=== PATIENT | male | born 1950 | race Caucasian/White ===

== ENCOUNTER 2020-09-24 13:44 | Outpatient (REF) | payer MEDICARE, OTHER, SELFPAY ==
[2020-09-24 16:42] LABS: Blood Urea Nitrogen 30 mg/dL (9-16); Estimated Glomerular Filt Rate 50
== END 2020-09-24 13:45 | disposition home or self-care (01) ==
LOC: HO.HMGCLDS 13:44
PROVIDERS: PCP Internal Medicine; Visit Provider Internal Medicine
DX: R79.9 Abnormal finding of blood chemistry, unspecified (principal)
CPT/HCPCS: 82565; 84520

== ENCOUNTER 2020-10-23 13:32 | Outpatient (REF) | payer MEDICARE, OTHER, SELFPAY ==
[2020-10-23 17:05] LABS: Blood Urea Nitrogen 23 mg/dL (9-16)
== END 2020-10-23 13:33 | disposition home or self-care (01) ==
LOC: HO.HMGCLDS 13:32
PROVIDERS: PCP Internal Medicine; Visit Provider Internal Medicine
DX: R79.89 Other specified abnormal findings of blood chemistry (principal)
CPT/HCPCS: 36415; 84520

== ENCOUNTER 2021-03-19 10:50 | Outpatient (REF) | payer MEDICARE, OTHER, SELFPAY ==
[2021-03-19 11:33] LABS: Estimated Average Glucose 103 mg/dL; Hemoglobin A1c % 5.2 %
[2021-03-19 12:00] LABS: Alanine Aminotransferase 20 U/L (0-40); Albumin Level 4.6 g/dL (3.5-5.0); Alkaline Phosphatase 52 U/L (39-117); Aspartate Amino Transferase 25 U/L (5-37); Bilirubin Direct 0.5 mg/dL (0.0-0.5); Bilirubin Total 1.7 mg/dL (0.0-1.0); Cholesterol 130 mg/dL; Glucose Fasting 104 mg/dL (60-99); HDL Cholesterol 30 mg/dL; LDL Cholesterol Calculated 55 mg/dl; Total Protein 7.2 g/dL (6.5-8.0); Triglycerides 225 mg/dL
[2021-03-19 13:03] LABS: Reflex LDLD? No
== END 2021-03-19 10:51 | disposition home or self-care (01) ==
LOC: HO.LNP 10:50
PROVIDERS: Visit Provider Internal Medicine
DX: R73.01 Impaired fasting glucose (principal); E78.00 Pure hypercholesterolemia, unspecified
CPT/HCPCS: 80061; 80076; 82947; 83036

== ENCOUNTER 2021-09-09 09:49 | Outpatient (REF) | payer MEDICARE, OTHER, SELFPAY | END 2021-09-09 09:50 | disposition home or self-care (01) | LOC: HO.HMGCLDS 09:49 | PROVIDERS: PCP Internal Medicine; Visit Provider Internal Medicine | DX: Z20.822 Contact with and (suspected) exposure to COVID-19 (principal) | CPT/HCPCS: C9803; U0003; U0005 ==

== ENCOUNTER 2021-09-17 10:29 | Outpatient (REF) | payer MEDICARE, OTHER, SELFPAY ==
[2021-09-17 10:34] LABS: MANUAL DIFF FLAG NO
[2021-09-17 10:53] LABS: Basophils Percent Auto 0.7 % (0-2); Eosinophils Absolute Auto 0.1 X10*3/uL (0.0-0.4); Eosinophils Percent Auto 2.4 % (0-4); Hematocrit 41.5 % (42.0-52.0); Hemoglobin 14.4 g/dl (14.0-18.0); Imm Gran Abs Auto 0.01 X10*3/uL (0.00-0.03); Imm Gran Pct Auto 0.2 % (0.0-0.4); Lymphocytes Absolute Auto 1.2 X10*3/uL (1.2-4.9); Lymphocytes Percent Auto 26.1 % (20-40); Mean Corpuscular HGB Conc 34.7 g/dl (31.0-36.0); Mean Corpuscular Hemoglobin 33.5 pg (27.0-33.0); Mean Corpuscular Volume 96.5 fL (80.0-98.0); Mean Platelet Volume 9.1 fL (9.4-12.4); Monocytes Absolute Auto 0.4 X10*3/uL (0.1-1.2); Monocytes Percent Auto 9.4 % (2-11); Neutrophils Absolute Auto 2.8 x10*3/uL (2.0-8.3); Neutrophils Percent Auto 61.2 % (45-73); Platelet Count 186 X10*3/uL (160-400); Red Cell Distribution Width 11.9 % (11.0-16.0); White Blood Count 4.6 X10*3/uL (4.8-10.8)
[2021-09-17 10:54] LABS: Appearance Urine CLEAR; Color Urine YELLOW; Glucose Urine UA NEG (NEG); Leukocyte Esterase Urine NEG (NEG); Nitrite Urine NEG (NEG); PH 5.5 (5.0-8.0); Specific Gravity - Urine >= 1.030 (1.005-1.025); Urine Blood NEG (NEG); Urine Ketones NEG (NEG); Urine Protein TRACE MG/DL (NEG-TRACE)
[2021-09-17 11:07] LABS: Estimated Average Glucose 103 mg/dL; Hemoglobin A1c % 5.2 %
[2021-09-17 11:15] LABS: Alanine Aminotransferase 26 U/L (0-40); Albumin Level 4.4 g/dL (3.5-5.0); Alkaline Phosphatase 55 U/L (39-117); Anion Gap 11 (12-20); Aspartate Amino Transferase 24 U/L (5-37); Bilirubin Total 1.6 mg/dL (0.0-1.0); Blood Urea Nitrogen 25 mg/dL (9-16); Calcium 9.6 mg/dL (8.4-10.2); Carbon Dioxide 28 mmol/L (22-29); Chloride 104 mmol/L (96-108); Cholesterol 118 mg/dL; Estimated Glomerular Filt Rate 52; Glucose Fasting 99 mg/dL (60-99); HDL Cholesterol 32 mg/dL; LDL Cholesterol Calculated 64 mg/dl; Potassium 3.9 mmol/L (3.3-5.1); Sodium 139 mmol/L (135-145); Total Protein 7.1 g/dL (6.5-8.0); Triglycerides 111 mg/dL
[2021-09-17 11:40] LABS: PSA,Total (Free>4and<10) < 0.05 ng/mL (0.00-4.00)
[2021-09-17 11:50] LABS: Reflex LDLD? No
== END 2021-09-17 10:30 | disposition home or self-care (01) ==
LOC: HO.LNP 10:29
PROVIDERS: Visit Provider Internal Medicine
DX: Z12.5 Encounter for screening for malignant neoplasm of prostate (principal); I10 Essential (primary) hypertension; E78.00 Pure hypercholesterolemia, unspecified; E78.6 Lipoprotein deficiency; R73.01 Impaired fasting glucose; D64.89 Other specified anemias; C61 Malignant neoplasm of prostate; R79.9 Abnormal finding of blood chemistry, unspecified
CPT/HCPCS: 80053; 80061; 81003; 83036; 84153; 85025

== ENCOUNTER 2021-12-24 10:25 | Outpatient (REF) | payer MEDICARE, OTHER, SELFPAY ==
[2021-12-24 10:53] LABS: Blood Urea Nitrogen 23 mg/dL (9-16); Estimated Glomerular Filt Rate 50
== END 2021-12-24 10:26 | disposition home or self-care (01) ==
LOC: HO.LNP 10:25
PROVIDERS: Visit Provider Internal Medicine
DX: R79.9 Abnormal finding of blood chemistry, unspecified (principal)
CPT/HCPCS: 82565; 84520

== ENCOUNTER 2022-09-23 11:53 | Outpatient (REF) | payer MEDICARE, OTHER, SELFPAY ==
[2022-09-23 12:08] LABS: MANUAL DIFF FLAG NO
[2022-09-23 12:21] LABS: Appearance Urine Clear; Color Urine Yellow; Glucose Urine UA Negative (Negative); Leukocyte Esterase Urine Negative (Negative); Nitrite Urine Negative (Negative); PH 6.5 (5.0-9.0); UMIC TRIGGER UA YES; Urine Blood Negative (Negative); Urine Ketones Negative (Negative); Urine Protein 30 (1+) mg/dL (Neg-Trace)
[2022-09-23 12:24] LABS: Bacteria Urine None Seen (None Seen); Hyaline Casts Urine 0-2 /LPF (0-2); RBC Urine 0-2 /HPF (0-2); Squamous Epithelial Cell Urine 0-2 /HPF (0-2); WBC Urine 0-5 /HPF (0-5)
[2022-09-23 12:30] LABS: Basophils Percent Auto 0.7 % (0-2); Eosinophils Absolute Auto 0.1 X10*3/uL (0.0-0.4); Eosinophils Percent Auto 2.7 % (0-4); Hematocrit 41.3 % (42.0-52.0); Imm Gran Abs Auto 0.01 X10*3/uL (0.00-0.03); Imm Gran Pct Auto 0.2 % (0.0-0.4); Lymphocytes Absolute Auto 1.1 X10*3/uL (1.2-4.9); Lymphocytes Percent Auto 23.8 % (20-40); Mean Corpuscular HGB Conc 33.9 g/dl (31.0-36.0); Mean Corpuscular Hemoglobin 32.3 pg (27.0-33.0); Mean Corpuscular Volume 95.2 fL (80.0-98.0); Mean Platelet Volume 8.7 fL (9.4-12.4); Monocytes Absolute Auto 0.5 X10*3/uL (0.1-1.2); Monocytes Percent Auto 11.1 % (2-11); Neutrophils Absolute Auto 2.7 x10*3/uL (2.0-8.3); Neutrophils Percent Auto 61.5 % (45-73); Platelet Count 198 X10*3/uL (160-400); Red Blood Count 4.34 X10*6/uL (4.60-5.80); White Blood Count 4.4 X10*3/uL (4.8-10.8)
[2022-09-23 12:46] LABS: Estimated Average Glucose 103 mg/dL; Hemoglobin A1c % 5.2 %
[2022-09-23 13:27] LABS: Alanine Aminotransferase 25 U/L (0-40); Albumin Level 4.4 g/dL (3.5-5.0); Alkaline Phosphatase 49 U/L (39-117); Anion Gap 13 (12-20); Aspartate Amino Transferase 24 U/L (5-37); Bilirubin Total 1.7 mg/dL (0.0-1.0); Blood Urea Nitrogen 23 mg/dL (9-16); Calcium 9.8 mg/dL (8.4-10.2); Carbon Dioxide 28 mmol/L (22-29); Chloride 104 mmol/L (96-108); Cholesterol 114 mg/dL; Estimated Glomerular Filt Rate 51; Glucose Fasting 101 mg/dL (60-99); HDL Cholesterol 28 mg/dL; LDL Cholesterol Calculated 49 mg/dl; PSA,Total (Free>4and<10) < 0.10 ng/mL (0.00-4.00); Sodium 141 mmol/L (135-145); Total Protein 6.9 g/dL (6.5-8.0); Triglycerides 187 mg/dL
== END 2022-09-23 11:54 | disposition home or self-care (01) ==
LOC: HO.LNP 11:53
PROVIDERS: Visit Provider Internal Medicine
DX: D64.89 Other specified anemias (principal); R73.01 Impaired fasting glucose; I10 Essential (primary) hypertension; E78.00 Pure hypercholesterolemia, unspecified; Z12.5 Encounter for screening for malignant neoplasm of prostate
CPT/HCPCS: 80053; 80061; 81001; 83036; 84153; 85025

== ENCOUNTER 2022-12-08 13:08 | Outpatient (REF) | payer MEDICARE, OTHER, SELFPAY ==
[2022-12-08 16:26] LABS: Cholesterol 126 mg/dL; HDL Cholesterol 27 mg/dL; LDL Cholesterol Calculated 36 mg/dl; Triglycerides 315 mg/dL
[2022-12-09 14:43] LABS: CRP High Sensitivity 0.5 mg/L
== END 2022-12-08 13:09 | disposition home or self-care (01) ==
LOC: HO.LAB 13:08
PROVIDERS: PCP Internal Medicine; Referring Provider Internal Medicine; Visit Provider Internal Medicine Cardiovascular Disease
DX: I25.10 Atherosclerotic heart disease of native coronary artery without angina pectoris (principal); E78.5 Hyperlipidemia, unspecified
CPT/HCPCS: 36415; 80061; 86141; 93005; 99202

== ENCOUNTER 2022-12-11 07:03 | Outpatient (REF) | payer MEDICARE, OTHER, SELFPAY ==
[2022-12-11 09:28] LABS: Cholesterol 120 mg/dL; HDL Cholesterol 27 mg/dL; LDL Cholesterol Calculated 55 mg/dl; Triglycerides 193 mg/dL
== END 2022-12-11 07:04 | disposition home or self-care (01) ==
LOC: HO.LAB 07:03
PROVIDERS: PCP Internal Medicine; Visit Provider Internal Medicine Cardiovascular Disease
DX: I25.10 Atherosclerotic heart disease of native coronary artery without angina pectoris (principal)
CPT/HCPCS: 36415; 80061

== ENCOUNTER → 2022-12-22 08:17 | Outpatient (REF) | payer MEDICARE, OTHER, SELFPAY ==
--- NOTE | 2022-12-22 08:24 | CA_ITS ---
Transthoracic Echocardiogram Patient (Last, First, Middle): Erik Rosales J Gender: Male Date of : 1950 Age: 72 Procedure Date: 12/22/2022 Procedure Type: Transthoracic Echocardiogram Location: OP Height: 182.88 cm Weight: 83.92 kg BSA: 2.06 m2 Heart Rate: 56 bpm BP: 120 / 65 mmHg Insights Manager: RAYNA Referring MD: Adrián Sandoval MD Symptoms: I25.10 - Atherosclerotic heart disease of citizen [place] coronary artery without... Study Quality: Adequate ECG Rhythm: Bradycardia Conclusions: - The left ventricular systolic function is low normal. The calculated ejection fraction is 54% by biplane method. - Possible basal inferior hypokinesis. - There is moderate to severely decreased right ventricular systolic function. - No obvious valvular pathology seen on this study. Findings Left Ventricle Normal left ventricular cavity size. There is normal left ventricular wall thickness. The left ventricular systolic function is low normal. The calculated ejection fraction is 54% by biplane method. Diastolic function is normal for age. Possible basal inferior hypokinesis. Right Ventricle Normal right ventricular cavity size. There is moderate to severely decreased right ventricular systolic function. Atria Both atria are normal in size. Aortic Valve There is a normal trileaflet aortic valve. There is mild calcification of the aortic valve. There is no aortic valve stenosis. There is no aortic valve regurgitation. Mitral Valve The mitral valve appears normal. There is no mitral valve regurgitation. There is no mitral valve stenosis. Pulmonic Valve The pulmonic valve is likely normal. There is trace pulmonic valve regurgitation. Tricuspid Valve Normal tricuspid valve structure. There is trace tricuspid valve regurgitation. There is no evidence of pulmonary hypertension. Great Vessels The asc aorta is normal in size. Venous The inferior vena cava was not well visualized. The inferior vena cava is normal in size. Pericardium/Pleural There is no evidence of pericardial effusion. Prior Study Comparison No prior study available for comparison. Recommendations, Care & Conclusions No obvious valvular pathology seen on this study. Measurements 2D Linear Measurements IVSd: 0.84 0.6-0.9/0.6-1.0 cm LVIDd: 3.91 3.9-5.3/4.2-5.9 cm LVIDd Index: 1.90 2.4-3.2/2.2-3.1 cm/m2 LVIDs: 2.45 2.0-3.6 cm LVPWd: 0.85 0.7-1.1 cm LA Diam: 3.70 2.7-3.8/3.0-4.0 cm LAIDs Index: 1.80 1.5-2.3 cm/m2 LV Mass: 119.79 67-162/88-224 g LV Mass Index: 58.15 43-95/49-115 g/m2 LVOT Diam: 2.10 3.0+(-)1.3 cm 2D Systolic Function EF 4C: 53.70 >55% EF 2C: 53.30 >55% EF BiP: 53.90 >55% Mitral Valve MV Pk E: 0.79 MV PK A: 0.67 MV Decel Time: 235.00 E/A: 1.20 E'Lateral: 12.30 E'Medial: 6.74 E/E' Med: 11.70 E/E' Lat: 6.40 PHT: 69.00 MVA PHT: 3.19 Decel [place]: 3.36 Aortic Valve AoV Pk Sunny: 1.34 AoV Mn Sunny: 0.94 AoV VTI: 0.29 AoV Pk Grad: 7.00 Aov Mn Grad: 4.00 HUNTER Cont.VTI: 2.83 LVOT LVOT Pk [place]: 1.17 LVOT Mn Sunny: 0.76 LVOT VTI: 0.24 LVOT Pk Grad: 5.00 LVOT Mn Grad: 3.00 LVOT Diam: 2.10 LVOT Area: 3.46 Diastolic Function MV Pk E: 0.79 MV Pk A: 0.67 E/A: 1.20 E'Medial: 6.74 E/E' Med: 11.70 E' Laterial: 12.30 E/E' Lat: 6.40 Right Ventricle TAPSE (mm): 9.72 TVS' Sunny: 6.53 Great Vessels Aorta Sinus of Valsalva: 3.60 2.0-3.5 cm Ao Asc: 3.50 2.1-3.4 cm Pulmonary Valve PV Pk Sunny: 0.91 Peak PV Grad: 3.00 Updated in Other Vendor System with Status of Final Sumeet Aponte MD electronically signed on 12/22/2022 12:26:49 PM with status of Final
== END ==
LOC: HO.CARD 08:17
PROVIDERS: Visit Provider Internal Medicine Cardiovascular Disease
DX: I25.10 Atherosclerotic heart disease of native coronary artery without angina pectoris (principal)
CPT/HCPCS: 93306

== ENCOUNTER → 2023-01-22 12:50 | Outpatient (BNVA) | payer MEDICARE, OTHER, SELFPAY | PROVIDERS: PCP Internal Medicine; Referring Provider Internal Medicine; Visit Provider Internal Medicine Cardiovascular Disease | DX: I25.10 Atherosclerotic heart disease of native coronary artery without angina pectoris (principal); I10 Essential (primary) hypertension; Z79.82 Long term (current) use of aspirin; Z79.899 Other long term (current) drug therapy | CPT/HCPCS: 99212 ==

== ENCOUNTER 2023-03-27 10:31 | Outpatient (REF) | payer MEDICARE, OTHER, SELFPAY ==
[2023-03-27 11:23] LABS: Estimated Average Glucose 100 mg/dL; Hemoglobin A1c % 5.1 %
[2023-03-27 11:54] LABS: Alanine Aminotransferase 25 U/L (0-40); Albumin Level 4.5 g/dL (3.5-5.0); Alkaline Phosphatase 54 U/L (39-117); Aspartate Amino Transferase 24 U/L (5-37); Bilirubin Direct 0.5 mg/dL (0.0-0.5); Bilirubin Total 2.1 mg/dL (0.0-1.0); Cholesterol 117 mg/dL; Glucose Fasting 107 mg/dL (60-99); HDL Cholesterol 28 mg/dL; LDL Cholesterol Calculated 42 mg/dl; Total Protein 7.2 g/dL (6.5-8.0); Triglycerides 236 mg/dL
[2023-03-27 12:11] LABS: Reflex LDLD? No
== END 2023-03-27 10:32 | disposition home or self-care (01) ==
LOC: HO.LNP 10:31
PROVIDERS: Visit Provider Internal Medicine
DX: R73.01 Impaired fasting glucose (principal); E78.00 Pure hypercholesterolemia, unspecified
CPT/HCPCS: 80061; 80076; 82947; 83036

== ENCOUNTER 2023-04-06 13:55 | Outpatient (REF) | payer MEDICARE, OTHER, SELFPAY ==
[2023-04-06 14:55] LABS: PSA,Total (Free>4and<10) < 0.10 ng/mL (0.00-4.00)
== END 2023-04-06 13:56 | disposition home or self-care (01) ==
LOC: HO.LNP 13:55
PROVIDERS: Visit Provider Internal Medicine
DX: Z12.5 Encounter for screening for malignant neoplasm of prostate (principal); C61 Malignant neoplasm of prostate
CPT/HCPCS: 84153

== ENCOUNTER → 2023-04-10 10:15 | Outpatient (REF) | payer MEDICARE, OTHER, SELFPAY | LOC: HO.CARD 10:15 | PROVIDERS: PCP Internal Medicine; Visit Provider Internal Medicine | DX: R55 Syncope and collapse (principal) | CPT/HCPCS: 93225 ==

== ENCOUNTER 2023-06-02 12:24 | Outpatient (AMB) | payer MEDICARE, OTHER, SELFPAY ==
[2023-06-02 12:36] VITALS: BP 120/60; PULSE 62; BMI 25.1
--- NOTE | 2023-06-02 12:36 | A.OFFVIS_ITS ---
Intake Vital Signs 06/02/23 12:36 Height 6 ft Weight 185 lb 3.013 oz BMI 25.1 BP 120/60 Blood Pressure Location Lt brachial Position Sitting Pulse 62 Intake Visit Reasons: Follow up per PCP/Shortness of breath Intake Note: Follow-up per pcp for sob states feeling ok ? heat Sole Leveler Machine Required: No Allergies No Known Allergies Allergy (Verified 12/08/22 13:28) Medication List - Last Reconciled 06/02/23 by Adrián Sandoval MD aspirin 162 mg PO DAILY calcium carbonate-vitamin D3 600 mg-10 mcg (400 unit) (Calcium 600 with Vitamin D3) tabs PO lisinopril-hydrochlorothiazide 10-12.5 mg 1 tab PO DAILY multivit with min-folic acid 80 mcg (Centrum Adult 50 Plus) 1 tab PO DAILY omeprazole 20 mg PO DAILY rosuvastatin 40 mg PO DAILY HPI HPI Comments History of Present Illness Details Erik comes for follow-up. Recently while working in really heart weather he got symptoms of shortness of breath any passed out. He said does not drink enough water but does take his blood pressure medication on a regular basis. However he has also noticed increasing shortness of breath recently especially when he runs. This symptoms are new compared to last year. He says symptoms of shortness of breath a similar to prior to his bypass surgery. He soto s been taking all his medications otherwise religiously. 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 Mother No problems noted. Social History Patient Tobacco Use Status: Never used Tobacco Review of Systems Const Denies chills, Denies fatigue, Denies fever(s), Denies frequent falls, Denies weakness, Denies weight gain and Denies weight loss ENT Denies dizziness Card Denies chest pain, Denies leg edema, Denies lightheadedness, Denies palpitation s, Denies dyspnea, Denies dyspnea on exertion, Denies orthopnea and Denies other (loss of consciousness) Resp Denies cough, Denies dyspnea and Denies dyspnea on exertion GI Denies hematochezia and Denies change in stool character Musc Denies abnormal gait, Denies muscle weakness, Denies numbness, Denies radiating pain into limb and Denies tingling Neuro Denies Abnormal speech present, Denies abnormal gait, Denies dizziness, Denies frequent falls, Denies numbness, Denies tingling and Denies weakness Endo Denies fatigue and Denies palpitations Physical Exam Vital Signs: Last Vital Signs Pulse 62 06/02/23 12:36 BP 120/60 06/02/23 12:36 BMI result Body Mass Index 25.1 Const General: cooperative, comfortable, no acute distress, well developed, alert and awake Nutritional Appearance: average body habitus and well nourished Orientation/consciousness: patient oriented x3 Neck Neck: Yes trachea midline, Yes supple and Yes no JVD Chest Chest palpation & inspection: other (Well-healed sternotomy scar) Resp Effort & Inspection: normal respiratory effort Auscultation: clear to auscultation bilaterally Cardio Jugular venous distension: no JVD Palpation: normal PMI Rate: regular rate Rhythm: regular rhythm Heart sounds: S1 normal heart sound present, S2 normal heart sound present, no click, no gallops, no murmurs and no rubs GI Auscultation: normal bowel sounds Skin General skin exam: no rashes or lesions noted Neuro General: patient oriented x3 and no focal motor deficits Speech: No Abnormal speech present Extrem General: Yes no clubbing, cyanosis or edema Assessment & Plan Assessment & Plan (1) SOB (shortness of breath) on exertion: Code(s): R06.02 - Shortness of breath Plan: Overall he seems to be doing okay but he is having some increased symptoms of exertional shortness of breath similar to prior to his coronary artery bypass grafting. This symptoms are worse than last year. I would therefore pursue with further ischemic evaluation with exercise myocardial perfusion imaging. This was discussed with him. Further treatment based on findings. Continue aspirin for lifelong. Continue current antihypertensive therapy. Blood pressure is currently well optimized continue high-intensity statin therapy with target goal LDL closer to 60 mg/dL. There are no signs or symptoms of heart failure at this point time. I am not changing his medical therapy at this point time. Syncope, while working in heart weather without adequate oral fluid replacement most likely suggestive intravascular volume depletion. Importance of oral hydration especially working in the heart humid weather was discussed with him to avoid future episodes of orthostatic syncope. Will follow up in the clinic in 1 year's time, sooner p.r.n.. Thank you for allowing me to partake in his care Orders: Orders CA stress test Today R06.02 - Shortness of breath NM cardiolite stress test 2 Weeks R06.02 - Shortness of breath, R07.9 - Chest pain, unspecified Coding Level of Care Code Est Pt Level 4 (74251) Diagnoses SOB (shortness of breath) on exertion R06.02
== END 2023-06-02 12:51 | disposition home or self-care (01) ==
PROVIDERS: PCP Internal Medicine; Referring Provider Internal Medicine; Visit Provider Internal Medicine Cardiovascular Disease
DX: R06.02 Shortness of breath (principal)
CPT/HCPCS: 99214

== ENCOUNTER → 2023-06-02 12:24 | Outpatient (BNVA) | payer MEDICARE, OTHER, SELFPAY | PROVIDERS: PCP Internal Medicine; Referring Provider Internal Medicine; Visit Provider Internal Medicine Cardiovascular Disease | DX: R06.02 Shortness of breath (principal) | CPT/HCPCS: 99212 ==

== ENCOUNTER → 2023-06-25 08:45 | Outpatient (REF) | payer MEDICARE, OTHER, SELFPAY ==
--- NOTE | ~2023-06-25 | NM_ITS ---
EXERCISE MYOCARDIAL PERFUSION STUDY INDICATION: Shortness of breath, assess for coronary disease and ischemia TECHNIQUE: The patient was brought in for an exercise perfusion study on 06/25/2023. Patient performed exercise as per Twin protocol and was injected 30 mCi of sestamibi once target heart rate was achieved. Images were obtained using the SPECT gamma camera interlaced with the gating device. Images were obtained in supine position. Resting perfusion study was performed on 06/26/2023. Patient was administered 30 mCi of sestamibi intravenously at rest. Images were then obtained in supine position. Images were processed with the software and compared side to side in short axis, horizontal long axis and vertical long axis views. Total DLP 1:30mGy-cm. FINDINGS: Raw images were reviewed. The stress perfusion study showed somewhat diminished tracer uptake in the proximal to mid septum but otherwise unremarkable. There is improvement with CT attenuation correction and hence suggesting artifactual etiology. The gated study shows normal LV systolic function with calculated LVEF of 74%. LV cavity is normal in size. The gated study shows normal wall thickening and contraction of segments. Resting study shows diminished tracer uptake along the inferior wall. Rest of the areas appear to have reduced tracer uptake compared to stress acquisition and hence most likely all artifactual. With CT attenuation correction, image quality is even worse. Gating at rest reveals normal wall motion with ejection fraction at 53%. The findings are consistent with no obvious perfusion defects based on stress acquisition only. Resting acquisition is of poor quality. NM/NM cardiolite stress test IMPRESSION: 1. Myocardial perfusion imaging study shows no overt abnormalities based on stress acquisition only. Resting acquisition is of poor quality. 2. Gated LVEF is 74% during stress and 53% during rest. Correlate with echocardiogram. 3. Transient ischemic dilatation not present. EKG component of the test reported separately.
--- NOTE | 2023-06-25 08:47 | CA_ITS ---
Acquisition Time: 2023-06-25 09:37:13 Total Exercise Time: 00:07:32 Test Indications: Dyspnea Medications: ASA LISINOPRIL/HCTZ OMEPRAZOLE ROSUVASTATIN Protocol: OZ Max HR: 139 BPM 95% of Pred: 146 BPM Max BP: 164/084 mmHG Max Work Load: 9.3 METS Exercise stress test with exercise 7 min 32 sec of Oz protocol achieving 95% MPHR, mild to moderate SOB, no chest discomfort, with isiolated PVCs, ventricular bigeminy, and isolated PACs, with normotensive response to exercise, without EKG changes. Nuclear images pending. Test reviewed with Dr. Moreno. Referred By: Adrián Sandoval Overread By: VALERIE MORENO
== END ==
LOC: HO.CARD 08:45
PROVIDERS: PCP Internal Medicine; Visit Provider Internal Medicine Cardiovascular Disease
DX: R07.9 Chest pain, unspecified (principal); R06.02 Shortness of breath
CPT/HCPCS: 78452; 93017; A9500

== ENCOUNTER → 2023-06-25 08:47 | Outpatient (BNV) | payer MEDICARE, OTHER, SELFPAY | PROVIDERS: PCP Internal Medicine; Visit Provider Internal Medicine | DX: R06.02 Shortness of breath (principal); R07.9 Chest pain, unspecified | CPT/HCPCS: 78452; 93016; 93018 ==

== ENCOUNTER 2023-06-30 15:36 | Outpatient (REF) | payer MEDICARE, OTHER, SELFPAY ==
[2023-06-30 16:48] LABS: Anion Gap 11 (12-20); Blood Urea Nitrogen 22 mg/dL (9-16); Calcium 10.4 mg/dL (8.4-10.2); Carbon Dioxide 28 mmol/L (22-29); Chloride 104 mmol/L (96-108); Estimated Glomerular Filt Rate 52; Glucose Random 93 mg/dL (60-115); Potassium 3.6 mmol/L (3.3-5.1); Sodium 139 mmol/L (135-145)
[2023-06-30 17:05] LABS: T4 Thyroxine 7.9 ug/dL (4.5-12.0); Thyroid Stimulating Hormone 0.57 uIU/mL (0.32-4.0)
[2023-06-30 17:20] LABS: Folate 16.3 ng/mL (> or = 4.0); Vitamin B12 641 pg/mL (200-900)
== END 2023-06-30 15:37 | disposition home or self-care (01) ==
LOC: HO.LAB 15:36
PROVIDERS: PCP Internal Medicine; Visit Provider Psychiatry & Neurology Neurology
DX: G31.84 Mild cognitive impairment of uncertain or unknown etiology (principal)
CPT/HCPCS: 36415; 80048; 82607; 82746; 84436; 84443

== ENCOUNTER 2023-07-14 10:08 | Outpatient (REF) | payer MEDICARE, OTHER, SELFPAY ==
--- NOTE | ~2023-07-14 | US_ITS ---
EXAMINATION: US EXTRACRANIAL CAROTID DUPLEX, BILATERAL CLINICAL INFORMATION: Coronary artery disease COMPARISON: None available. TECHNIQUE: Real-time ultrasound and Doppler techniques (integrating B-mode 2-D vascular images, Doppler spectral analysis and color-flow Doppler imaging) were utilized to interrogate the extracranial carotid arteries, the vertebral arteries and proximal subclavian arteries bilaterally. The degree of stenosis is determined by criteria similar to NASCET. FINDINGS: Right Side: 1. There is mild atherosclerotic plaque seen in the bifurcation/proximal ICA region. 2. The common carotid artery PSV proximally is 138 cm/s and distally 72 cm/s. 3. The proximal internal carotid artery velocities are 64 cm/s systolic and 19 cm/s diastolic. 4. The proximal external carotid artery PSV is 77 cm/s. 5. The vertebral artery shows antegrade flow. 6. The subclavian artery waveforms are normal. Left Side: 1. There is mild atherosclerotic plaque seen in the bifurcation/proximal ICA region. 2. The common carotid artery PSV proximally is 112 cm/s and distally 75 cm/s. 3. The proximal internal carotid artery velocities are 92 cm/s systolic and 17 cm/s diastolic. 4. The proximal external carotid artery PSV is 80 cm/s. 5. The vertebral artery shows antegrade flow. 6. The subclavian artery waveforms are normal. US/US carotid duplex BI IMPRESSION: 1. RIGHT: Minimal, non-hemodynamically significant stenosis of the proximal right internal carotid artery corresponding to a 0-49% stenosis by velocity criteria. 2. LEFT: Minimal, non-hemodynamically significant stenosis of the proximal left internal carotid artery corresponding to a 0-49% stenosis by velocity criteria.
== END 2023-07-14 10:09 | disposition home or self-care (01) ==
LOC: HO.HMGCX 10:08
PROVIDERS: PCP Internal Medicine; Visit Provider Internal Medicine
DX: I25.10 Atherosclerotic heart disease of native coronary artery without angina pectoris (principal)
CPT/HCPCS: 93880

== ENCOUNTER 2023-07-27 11:13 | Day surgery (SDC) | payer MEDICARE, OTHER, SELFPAY ==
--- NOTE | 2023-07-23 14:06 | P.CONAN_ITS ---
Documented by User: Chiquita Pineda NP 07/23/23 14:11 HPI - Anesthesia Eval Consult details Narrative: 73yo M for Colonoscopy CAD s/p CABG. Follows [facility] [place] cardiology. Last office visit 05/2023 for eval of increased SOB. ECHO and Stress done and WNL. F/U in 1 year. [facility] Active Problems Active Problems: All Active Problems (Updated 06/02/23 @ 12:49 by Adrián Sandoval MD) SOB (shortness of breath) on exertion (Acute) HTN (hypertension) (Acute) CAD (coronary artery disease) (Acute) Past Medical History Medical History HLD (hyperlipidemia) Prostate cancer HTN (hypertension) CAD (coronary artery disease) Family History Family History Father No problems noted. Mother No problems noted. Surgical History Surgical History H/O colonoscopy Hx of tonsillectomy H/O prostatectomy Hx of appendectomy S/P CABG x 3 Social History Social History Patient Tobacco Use Status: Never used Tobacco Use of substances other than those prescribed or required for medical reasons: No Are you DNR?: No Advance Directives: No Advance Directives Information Provided: Yes Meds Allergies Allergy/AdvReac Type Severity Reaction Status Date / Time No Known Allergies Allergy Verified 07/27/23 11:26 Home Medications Medication Instructions Recorded Confirmed Last Taken Type aspirin 81 mg tablet,delayed 162 mg PO DAILY 12/08/22 07/27/23 07/25/23 History release calcium carbonate 600 mg-vitamin 1 tab PO DAILY 12/08/22 07/27/23 Unknown History D3 10 mcg (400 unit) chewable tablet (Calcium 600 with Vitamin D3) lisinopril 10 1 tab PO DAILY 12/08/22 07/27/23 Unknown History mg-hydrochlorothiazide 12.5 mg tablet omeprazole 20 mg tablet,delayed 20 mg PO DAILY 12/08/22 07/27/23 07/27/23 History release rosuvastatin 40 mg tablet 40 mg PO DAILY 12/08/22 07/27/23 Unknown History multivitamin with minerals-folic 1 tab PO DAILY 06/02/23 07/27/23 Unknown History acid 80 mcg chewable tablet (Centrum Adult 50 Plus) Exam Exam Date and Time: July 23, 2023 1406 Pertinent Lab Results Pertinent Lab Results: Laboratory Tests 09/23/22 06/30/23 Unknown 16:04 WBC 4.4 L Hgb 14.0 Hct 41.3 L Plt Count 198 Sodium 139 Potassium 3.6 Chloride 104 Carbon Dioxide 28 BUN 22 H Creatinine 1.34 Narrative Narrative: NM cardiolite stress test 06/2023 IMPRESSION: 1. Myocardial perfusion imaging study shows no overt abnormalities based on stress acquisition only. Resting acquisition is of poor quality. 2. Gated LVEF is 74% during stress and 53% during rest. Correlate with echocardiogram. 3. Transient ischemic dilatation not present. EKG component of the test reported separately. US carotid duplex BI 07/2023 IMPRESSION: 1. RIGHT: Minimal, non-hemodynamically significant stenosis of the proximal right internal carotid artery corresponding to a 0-49% stenosis by velocity criteria. 2. LEFT: Minimal, non-hemodynamically significant stenosis of the proximal left internal carotid artery corresponding to a 0-49% stenosis by velocity criteria. Assessment and Plan Assessment Anesthesia Assessment: Chart Reviewed Documented by User: Amita Steen MD 07/27/23 12:11 [facility] Active Problems Active Problems: All Active Problems (Updated 07/27/23 @ 11:30 by Amita Steen MD) SOB (shortness of breath) on exertion (Acute) HTN (hypertension) (Acute) CAD (coronary artery disease) (Acute) Denies recent CP or SOB since cardiology visit Past Medical History Medical History HLD (hyperlipidemia) Prostate cancer HTN (hypertension) CAD (coronary artery disease) Family History Family History Father No problems noted. Mother No problems noted. Family history of problems with anesthesia: No Surgical History Surgical History H/O colonoscopy Hx of tonsillectomy H/O prostatectomy Hx of appendectomy S/P CABG x 3 History of Problems with Anesthesia: No Social History Social History Patient Tobacco Use Status: Never used Tobacco Use of substances other than those prescribed or required for medical reasons: No Are you DNR?: No Advance Directives: No Advance Directives Information Provided: Yes Meds Allergies Allergy/AdvReac Type Severity Reaction Status Date / Time No Known Allergies Allergy Verified 07/27/23 11:26 Home Medications Medication Instructions Recorded Confirmed Last Taken Type aspirin 81 mg tablet,delayed 162 mg PO DAILY 12/08/22 07/27/23 07/25/23 History release calcium carbonate 600 mg-vitamin 1 tab PO DAILY 12/08/22 07/27/23 Unknown History D3 10 mcg (400 unit) chewable tablet (Calcium 600 with Vitamin D3) lisinopril 10 1 tab PO DAILY 12/08/22 07/27/23 Unknown History mg-hydrochlorothiazide 12.5 mg tablet omeprazole 20 mg tablet,delayed 20 mg PO DAILY 12/08/22 07/27/23 07/27/23 History release rosuvastatin 40 mg tablet 40 mg PO DAILY 12/08/22 07/27/23 Unknown History multivitamin with minerals-folic 1 tab PO DAILY 06/02/23 07/27/23 Unknown History acid 80 mcg chewable tablet (Centrum Adult 50 Plus) Exam Height,Weight and Vital Signs: Height 6 ft Weight 81.647 kg Vital Signs Temp Pulse Resp BP Pulse Ox O2 Del Method 07/27/23 11:32 97.9 F 74 16 113/71 96 Room Air Narrative Narrative: 12 lead EKG 12/08/22 NSR 69. Minimal voltage criteria for LVH, maybe normal variant. Inferior infarct, age undetermined 2 day Holter monitor 04/10/23 Frequent PVCs, rare PACs NM cardiolite stress test 06/2023 IMPRESSION: 1. Myocardial perfusion imaging study shows no overt abnormalities based on stress acquisition only. Resting acquisition is of poor quality. 2. Gated LVEF is 74% during stress and 53% during rest. Correlate with echocardiogram. 3. Transient ischemic dilatation not present. EKG component of the test reported separately. Stress test 06/25/23 Protocol: TWIN Max HR: 139 BPM 95% of Pred: 146 BPM Max BP: 164/084 mmHG Max Work Load: 9.3 METS Exercise stress test with exercise 7 min 32 sec of Twin protocol achieving 95% MPHR, mild to moderate SOB, no chest discomfort, with isiolated PVCs, ventricular bigeminy, and isolated PACs, with normotensive response to exercise, without EKG changes. Nuclear images pending. Test reviewed with Dr. Aponte. carotid duplex BI 07/2023 IMPRESSION: 1. RIGHT: Minimal, non-hemodynamically significant stenosis of the proximal right internal carotid artery corresponding to a 0-49% stenosis by velocity criteria. 2. LEFT: Minimal, non-hemodynamically significant stenosis of the proximal left internal carotid artery corresponding to a 0-49% stenosis by velocity criteria. Airway Mallampati Class: III (Small mouth opening ) TM Dist: >3cm Neck ROM: Poor (Mass left side of neck ?lipoma. Patient states evaluated but not told anything about it) Loose/Missing/Broken Teeth: No (Denies broken, loose, missing teeth) Heart: RRR Lungs: CTAB Assessment and Plan Assessment Anesthesia Assessment: Anesthesia Plan Discussed Final Anesthetic Review Family History of Problems with Anesthesia: No History of Problems with Anesthesia: No NPO: Yes ASA Class: III Final Preanesthetic Review: No Changes in Pt Med Stat, Meds/Allgs Chart Reviewed, Consent Obtained/Reviewed and Anes Risks/Benef Reviewed Patient Risk: Intermediate Procedure Risk: Low Assessment/Block/Sedation in SS: Assess/Block/Sedation-SS Anesthetic Plan Anesthetic Plan: MAC: Disposition: Standard PACU
[2023-07-27 11:21] VITALS: BMI 24.4
[2023-07-27 11:32] VITALS: BP 113/71; PULSE 74; RESP 16; TEMP 36.6; O2SAT 96
[2023-07-27] MEDS: Lactated Ringers 1,000 ML 50 ML IVCONT (11:37)
[2023-07-27 12:51] VITALS: BP 98/47; PULSE 59; RESP 12; TEMP 36.2; O2SAT 98
--- NOTE | 2023-07-27 12:54 | PM.OP ---
Brief Operative Note Date of Service: 07/27/23 Pre-op diagnosis: Screening Post-op diagnosis: other (Polyp) Procedure: Colonoscopy to the cecum and TI with hot snare polypectomy x 1, and placement of 2 Resolution clips Surgeon: Armando Ortega MD Anesthesia: MAC Was an Cafeteria Helper used for this Procedure?: No Estimated blood loss (mL): 0 Pathology: other (A. Polyp at 30cm) Condition: stable Disposition: PACU
[2023-07-27 13:06] VITALS: BP 99/50; PULSE 56; RESP 16; O2SAT 98
[2023-07-27 13:21] VITALS: BP 103/50; PULSE 55; RESP 16; TEMP 36.2; O2SAT 98
--- NOTE | 2023-07-27 23:16 | OP_ITS ---
DATE OF SERVICE: 07/27/2023 SURGEON: Armando Ortega MD INDICATIONS: The patient presents for evaluation of colorectal cancer screening. Full consent has been obtained from him for this, including risks of bleeding and perforation. PREOPERATIVE DIAGNOSIS: Colorectal cancer screening. POSTOPERATIVE DIAGNOSIS: PROCEDURE PERFORMED: Colonoscopy to the cecum and terminal ileum with hot snare polypectomy and placement of 2 resolution clips. ESTIMATED BLOOD LOSS: COMPLICATIONS: ANESTHESIA: Monitored anesthesia care. ASSISTANTS: SPECIMENS: POSTOPERATIVE DIAGNOSES: Colorectal cancer screening, colon polyp, diverticulosis, and internal hemorrhoids. DESCRIPTION OF PROCEDURE: The patient was placed in the left lateral decubitus position. The digital rectal exam revealed no abnormalities except for some hemorrhoidal tissue. The Olympus video pediatric colonoscope was entered into the rectum and advanced to the cecum with the assistance of abdominal wall pressure. Once in the cecum, I did identify normal-appearing cecal pouch with appendiceal orifice and a normal-appearing ileocecal valve. The terminal ileum was cannulated and appeared normal. The scope was withdrawn back in the colon. The entire cecum and ileocecal valve appeared normal. The scope was slowly withdrawn assessing all mucosal surfaces carefully. Preparation was excellent. At 30 cm was an approximately 8 mm grossly adenomatous polyp, which was removed by hot snare polypectomy and recovered by suction. The polypectomy site appeared clean, without any sign of residual polyp nor bleeding. Two resolution clips were placed at the polypectomy site with good deployment and good hemostasis. I did not visualize any other polyps, colitis, nor angiodysplasia. There was a mild amount of sigmoid diverticulosis. In the rectum, scope was retroflexed visualizing internal hemorrhoids, but no other pathology. The rectal mucosa appeared normal. The scope was straightened and withdrawn from the patient. He tolerated the procedure well and was returned to the recovery area in stable condition. IMPRESSION: 1. Colon polyp. 2. Diverticulosis. 3. Internal hemorrhoids. PLAN: The results of the pathology will be checked. Given his age and this minimal finding, I do not think he will need any further screening colonoscopies in the future. He was advised to resume his aspirin in 48 hours. He will otherwise see me on a p.r.n. basis. MD ALEXEI Warren/SOLE / [phone] [id number]
== END 2023-07-27 13:50 | disposition home or self-care (01) ==
PROVIDERS: PCP Internal Medicine; Visit Provider Internal Medicine
PROC: 0DJD8ZZ Inspection of Lower Intestinal Tract, Via Natural or Artificial Opening Endoscopic (ICD-10-PCS; CPT 45378; principal; 2023-07-27 12:40)
DX: Z12.11 Encounter for screening for malignant neoplasm of colon (principal); D12.5 Benign neoplasm of sigmoid colon; K57.30 Diverticulosis of large intestine without perforation or abscess without bleeding; K64.8 Other hemorrhoids; I25.10 Atherosclerotic heart disease of native coronary artery without angina pectoris; I10 Essential (primary) hypertension; Z95.1 Presence of aortocoronary bypass graft; E78.5 Hyperlipidemia, unspecified; Z79.82 Long term (current) use of aspirin; Z85.46 Personal history of malignant neoplasm of prostate; Z92.3 Personal history of irradiation; Z90.79 Acquired absence of other genital organ(s)
CPT/HCPCS: 45385; 88305; J2371

== ENCOUNTER 2023-09-08 07:21 | Outpatient (REF) | payer MEDICARE, OTHER, SELFPAY ==
--- NOTE | ~2023-09-08 | CT_ITS ---
EXAMINATION: CT head/brain wo IV con CLINICAL INFORMATION: Reason for Exam MILD COGNITIVE IMPAIRMENT COMPARISON: None. TECHNIQUE: Contiguous axial imaging was performed from the skull base to vertex without intravenous contrast. Sagittal and coronal reformatted images were obtained. This CT examination was performed using dose optimization techniques as appropriate, variously including the following: * Automated exposure control * Adjustment of mA and/or kV according to patient size (this includes techniques or standardized protocols for targeted exams where dose is matched to indication/reason for exam; i.e. extremities or head) Use of iterative reconstruction technique DLP: 769.44 mGy-cm FINDINGS: No acute osseous or soft tissue abnormality. The mastoid air cells and visualized portions of the paranasal sinuses are well aerated. There is no evidence of acute intracranial hemorrhage or territorial infarction. No abnormal mass effect or midline shift is seen. [place] to white matter differentiation is well preserved. No extra-axial fluid collections are identified. No hydrocephalus. Cavum septum pellucidum et vergae. Proportional prominence of the ventricles and sulcal spaces is consistent with mild volume loss. Patchy periventricular and deep white matter hypoattenuation is consistent with mild to moderate small vessel ischemic changes. CT/CT head/brain wo IV con IMPRESSION: 1. No acute intracranial abnormality 2. Mild generalized volume loss and mild to moderate chronic microangiopathy.
== END 2023-09-08 07:22 | disposition home or self-care (01) ==
LOC: HO.CT 07:21
PROVIDERS: PCP Internal Medicine; Visit Provider Psychiatry & Neurology Neurology
DX: G31.84 Mild cognitive impairment of uncertain or unknown etiology (principal)
CPT/HCPCS: 70450

== ENCOUNTER 2023-09-25 10:27 | Outpatient (REF) | payer MEDICARE, OTHER, SELFPAY ==
[2023-09-25 10:33] LABS: MANUAL DIFF FLAG NO
[2023-09-25 10:49] LABS: Estimated Average Glucose 100 mg/dL; Hemoglobin A1c % 5.1 % (<6.0)
[2023-09-25 10:53] LABS: Basophils Percent Auto 0.7 % (0-2); Eosinophils Absolute Auto 0.1 X10*3/uL (0.0-0.4); Eosinophils Percent Auto 2.3 % (0-4); Hematocrit 40.3 % (42.0-52.0); Hemoglobin 13.9 g/dl (14.0-18.0); Imm Gran Abs Auto 0.01 X10*3/uL (0.00-0.03); Imm Gran Pct Auto 0.2 % (0.0-0.4); Lymphocytes Percent Auto 22.3 % (20-40); Mean Corpuscular HGB Conc 34.5 g/dl (31.0-36.0); Mean Corpuscular Hemoglobin 32.9 pg (27.0-33.0); Mean Corpuscular Volume 95.5 fL (80.0-98.0); Mean Platelet Volume 8.9 fL (9.4-12.4); Monocytes Absolute Auto 0.4 X10*3/uL (0.1-1.2); Monocytes Percent Auto 9.3 % (2-11); Neutrophils Absolute Auto 2.9 x10*3/uL (2.0-8.3); Neutrophils Percent Auto 65.2 % (45-73); Platelet Count 198 X10*3/uL (160-400); Red Blood Count 4.22 X10*6/uL (4.60-5.80); Red Cell Distribution Width 12.2 % (11.0-16.0); White Blood Count 4.4 X10*3/uL (4.8-10.8)
[2023-09-25 10:55] LABS: Alanine Aminotransferase 29 U/L (0-40); Albumin Level 4.3 g/dL (3.5-5.0); Alkaline Phosphatase 58 U/L (39-117); Anion Gap 11 (12-20); Aspartate Amino Transferase 22 U/L (5-37); Blood Urea Nitrogen 30 mg/dL (9-16); Calcium 9.4 mg/dL (8.4-10.2); Carbon Dioxide 27 mmol/L (22-29); Chloride 108 mmol/L (96-108); Cholesterol 112 mg/dL (<200); Estimated Glomerular Filt Rate 53; Glucose Fasting 107 mg/dL (60-99); HDL Cholesterol 30 mg/dL (>40); LDL Cholesterol Calculated 52 mg/dL (<100); Potassium 3.8 mmol/L (3.3-5.1); Sodium 142 mmol/L (135-145); Total Protein 7.1 g/dL (6.5-8.0); Triglycerides 153 mg/dL (<150)
[2023-09-25 10:56] LABS: Appearance Urine Cloudy; Color Urine Yellow; Glucose Urine UA Negative (Negative); Leukocyte Esterase Urine Negative (Negative); Nitrite Urine Negative (Negative); PH 5.5 (5.0-9.0); Specific Gravity - Urine >= 1.030 (1.005-1.025); UMIC TRIGGER UACC YES; Urine Blood Negative (Negative); Urine Ketones Negative (Negative); Urine Protein 30 (1+) mg/dL (Neg-Trace)
[2023-09-25 11:00] LABS: Bacteria Urine None Seen (None Seen); Hyaline Casts Urine 0-2 /LPF (0-2); RBC Urine 0-2 /HPF (0-2); Squamous Epithelial Cell Urine 0-2 /HPF (0-2); WBC Urine 0-5 /HPF (0-5)
[2023-09-25 11:20] LABS: Creatinine Urine 201.28 mg/dL; Microalbum/Creatinine Ratio Ur 30.3 ug/mg cr (<30); PSA,Total (Free>4and<10) < 0.10 ng/mL (0.00-4.00)
== END 2023-09-25 10:28 | disposition home or self-care (01) ==
LOC: HO.LNP 10:27
PROVIDERS: Visit Provider Internal Medicine
DX: I10 Essential (primary) hypertension (principal); R73.01 Impaired fasting glucose; E78.00 Pure hypercholesterolemia, unspecified; D64.89 Other specified anemias; Z12.5 Encounter for screening for malignant neoplasm of prostate
CPT/HCPCS: 80053; 80061; 81001; 82043; 82570; 83036; 84153; 85025

== ENCOUNTER 2023-12-10 12:11 | Outpatient (REF) | payer MEDICARE, OTHER, SELFPAY ==
[2023-12-10 12:15] LABS: MANUAL DIFF FLAG NO
[2023-12-10 13:03] LABS: Basophils Percent Auto 0.3 % (0-2); Eosinophils Absolute Auto 0.1 X10*3/uL (0.0-0.4); Eosinophils Percent Auto 1.8 % (0-4); Hematocrit 43.7 % (42.0-52.0); Hemoglobin 15.2 g/dl (14.0-18.0); Imm Gran Abs Auto 0.02 X10*3/uL (0.00-0.03); Imm Gran Pct Auto 0.3 % (0.0-0.4); Lymphocytes Absolute Auto 1.3 X10*3/uL (1.2-4.9); Lymphocytes Percent Auto 18.5 % (20-40); Mean Corpuscular HGB Conc 34.8 g/dl (31.0-36.0); Mean Corpuscular Hemoglobin 32.5 pg (27.0-33.0); Mean Corpuscular Volume 93.6 fL (80.0-98.0); Mean Platelet Volume 8.7 fL (9.4-12.4); Monocytes Absolute Auto 0.5 X10*3/uL (0.1-1.2); Monocytes Percent Auto 7.6 % (2-11); Neutrophils Absolute Auto 4.9 x10*3/uL (2.0-8.3); Neutrophils Percent Auto 71.5 % (45-73); Platelet Count 181 X10*3/uL (160-400); Red Blood Count 4.67 X10*6/uL (4.60-5.80); Red Cell Distribution Width 12.1 % (11.0-16.0); White Blood Count 6.8 X10*3/uL (4.8-10.8)
[2023-12-10 13:11] LABS: Blood Urea Nitrogen 32 mg/dL (9-16); Estimated Glomerular Filt Rate 49
== END 2023-12-10 12:12 | disposition home or self-care (01) ==
LOC: HO.LNP 12:11
PROVIDERS: Visit Provider Internal Medicine
DX: R79.9 Abnormal finding of blood chemistry, unspecified (principal); D64.89 Other specified anemias
CPT/HCPCS: 82565; 84520; 85025

== ENCOUNTER 2024-01-12 11:11 | Outpatient (REF) | payer MEDICARE, OTHER, SELFPAY ==
[2024-01-12 11:50] LABS: Blood Urea Nitrogen 22 mg/dL (9-16); Estimated Glomerular Filt Rate 54
== END 2024-01-12 11:12 | disposition home or self-care (01) ==
LOC: HO.LNP 11:11
PROVIDERS: Visit Provider Internal Medicine
DX: R10.30 Lower abdominal pain, unspecified (principal)
CPT/HCPCS: 82565; 84520

== ENCOUNTER 2024-04-21 11:13 | Outpatient (REF) | payer MEDICARE, OTHER, SELFPAY ==
[2024-04-21 11:55] LABS: Alanine Aminotransferase 25 U/L (0-40); Albumin Level 4.7 g/dL (3.5-5.0); Alkaline Phosphatase 67 U/L (39-117); Aspartate Amino Transferase 25 U/L (5-37); Bilirubin Direct 0.4 mg/dL (0.0-0.5); Bilirubin Total 1.7 mg/dL (0.0-1.0); Blood Urea Nitrogen 23 mg/dL (9-16); Cholesterol 117 mg/dL (<200); Estimated Glomerular Filt Rate 56; HDL Cholesterol 33 mg/dL (>40); LDL Cholesterol Calculated 44 mg/dL (<100); Total Protein 7.6 g/dL (6.5-8.0); Triglycerides 202 mg/dL (<150)
[2024-04-21 12:03] LABS: Reflex LDLD? No
== END 2024-04-21 11:14 | disposition home or self-care (01) ==
LOC: HO.LNP 11:13
PROVIDERS: Visit Provider Internal Medicine
DX: R79.9 Abnormal finding of blood chemistry, unspecified (principal); E78.00 Pure hypercholesterolemia, unspecified
CPT/HCPCS: 80061; 80076; 82565; 84520

== ENCOUNTER 2024-06-02 11:16 | Outpatient (AMB) | payer MEDICARE, OTHER, SELFPAY ==
--- NOTE | 2024-06-02 12:29 | A.OFFVIS_ITS ---
Vital Signs 06/02/24 12:30 Height 6 ft Weight 189 lb 2.506 oz BMI 25.7 BP 130/68 Blood Pressure Location Lt brachial Position Sitting Pulse 55 Pulse Source Monitor Intake Visit Reasons: 1 yr f/up Intake Note: 1 yr f/up- pt is doing fine. Bus Boy Required: No Accompanied by: Spouse Allergies No Known Allergies Allergy (Verified 07/27/23 11:26) Medication List - Last Reconciled 06/02/24 by Adrián Sandoval MD amlodipine 5 mg PO DAILY aspirin 162 mg PO DAILY calcium carbonate-vitamin D3 600 mg-10 mcg (400 unit) (Calcium 600 with Vitamin D3) 1 tab PO DAILY multivit with min-folic acid 80 mcg (Centrum Adult 50 Plus) 1 tab PO DAILY omeprazole 20 mg PO DAILY rosuvastatin 40 mg PO DAILY HPI Comments Details: Erik comes for follow-up. He does not have any worsening shortness of breath. He said he has cut down although doing exercise for being fearful about cardiac issues. Myocardial perfusion imaging last year was within normal limits. Last December his lisinopril was discontinued as per the due to elevated creatinine. Was switch to amlodipine therapy. Renal function is improved as per her. He did not have any symptoms of orthopnea, PND, leg edema. Denies any prolonged palpitation irregular heartbeat. No lightheadedness, syncope. Blood pressure generally at home range in the range of 140 systolic. [facility] Medical History HLD (hyperlipidemia) Prostate cancer HTN (hypertension) CAD (coronary artery disease) Surgical History H/O colonoscopy Hx of tonsillectomy H/O prostatectomy Hx of appendectomy S/P CABG x 3 Family History Father No problems noted. Mother No problems noted. Social History Patient Tobacco Use Status: Never used Tobacco Review of Systems Const Denies chills, Denies fatigue, Denies fever(s), Denies frequent falls, Denies weakness, Denies weight gain and Denies weight loss ENT Denies dizziness Card Denies chest pain, Denies leg edema, Denies lightheadedness, Denies palpitations, Denies dyspnea and Denies dyspnea on exertion Resp Denies cough, Denies dyspnea and Denies dyspnea on exertion GI Denies hematochezia Musc Denies abnormal gait, Denies muscle weakness, Denies numbness, Denies radiating pain into limb and Denies tingling Neuro Denies Abnormal speech present, Denies abnormal gait, Denies dizziness, Denies frequent falls, Denies numbness, Denies tingling and Denies weakness Endo Denies fatigue and Denies palpitations Physical Exam Vital Signs: Last Vital Signs Pulse 55 06/02/24 12:30 BP 130/68 06/02/24 12:30 BMI result Body Mass Index 25.7 Const General: cooperative, comfortable, no acute distress, well developed, alert and awake Nutritional Appearance: average body habitus and well nourished Orientation/consciousness: patient oriented x3 Neck Neck: Yes trachea midline, Yes supple and Yes no JVD Chest Chest palpation & inspection: other (Well-healed sternotomy scar) Resp Effort & Inspection: normal respiratory effort Auscultation: clear to auscultation bilaterally Cardio Jugular venous distension: no JVD Palpation: normal PMI Rate: regular rate Rhythm: regular rhythm Heart sounds: S1 normal heart sound present, S2 normal heart sound present, no click, no gallops, no murmurs and no rubs GI Auscultation: normal bowel sounds Skin General skin exam: no rashes or lesions noted Neuro General: patient oriented x3 and no focal motor deficits Speech: No Abnormal speech present Extrem General: Yes no clubbing, cyanosis or edema Office Procedures EKG Details: EKG shows normal sinus rhythm with inferior Q-wave in lead 3 suggestive of prior inferior CA with no acute ST T wave changes [id number], Complete Assessment & Plan Assessment & Plan (1) CAD (coronary artery disease): Code(s): I25.10 - Atherosclerotic heart disease of [place] coronary artery without angina pectoris Category: Medical Plan: CAD status post three-vessel coronary artery bypass grafting with myocardial perfusion imaging last year within normal limits showing no ischemia. I stro ngly encouraged him to participate in physical activity as tolerated. Continue aspirin therapy for antiplatelet regimen for life. Continue aggressive blood pressure control, see below. Continue high-intensity statin therapy. Goal LDL less than 70 mg/dL. Annual lipid panel should be pursued. Advised to call me with worsening symptoms that may require further anatomic imaging. (2) HTN (hypertension): Code(s): I10 - Essential (primary) hypertension Category: Medical Plan: Hypertension which is borderline optimized. Systolic blood pressure 140 range. Advised to increase amlodipine to 7.5 mg daily. Advised to monitor blood pressure regularly at home and maintain a log. Goal blood pressure less than 130/84. Low-salt diet was discussed. Encouraged to increase activity level as tolerated. Will follow up in the clinic in 1 year's time, sooner p.r.n.. Thank you for allowing me to partake in his care Orders: Orders CA echo transthoracic complete 1 Year I25.10 - Atherosclerotic heart disease of [place] coronary artery without angina pectoris Medications: New amlodipine 7.5 mg (1.5 x 5 mg) PO DAILY 150 tabs 3RF Coding Level of Care Code Est Pt Level 4 (02818) Diagnoses CAD (coronary artery disease) I25.10 HTN (hypertension) I10 CPT Codes EKG - CPT: 83214-Dgyzewevqihdvyqrq, Complete ([id number])
[2024-06-02 12:30] VITALS: BP 130/68; PULSE 55; BMI 25.7
== END 2024-06-02 12:52 | disposition home or self-care (01) ==
PROVIDERS: PCP Internal Medicine; Visit Provider Internal Medicine Cardiovascular Disease
DX: I25.10 Atherosclerotic heart disease of native coronary artery without angina pectoris (principal); I10 Essential (primary) hypertension
CPT/HCPCS: 93010; 99214

== ENCOUNTER → 2024-06-02 11:16 | Outpatient (BNVA) | payer MEDICARE, OTHER, SELFPAY | PROVIDERS: PCP Internal Medicine; Visit Provider Internal Medicine Cardiovascular Disease | DX: I25.10 Atherosclerotic heart disease of native coronary artery without angina pectoris (principal); I10 Essential (primary) hypertension; E78.5 Hyperlipidemia, unspecified; Z95.1 Presence of aortocoronary bypass graft | CPT/HCPCS: 93005; 99212 ==

== ENCOUNTER 2024-09-30 12:26 | Outpatient (REF) | payer MEDICARE, OTHER, SELFPAY ==
--- OUTSIDE RECORDS SUMMARY | 2024-09-30 12:29 | XMS_ITS ---
Author Organization [facility] Address [address] [place] [phone] Care Team Providers Care Mechanic/Welder Name Role Phone Erica NICHOLAS, Taras Primary Care Provider Armando Ayers [phone] ALLERGIES No Known Allergies REASON FOR VISIT Patient presents today for a colon screening MEDICATIONS Medication SIG (Take, Route, Frequency, Duration) Notes Start Date End Date Status Aspirin Low Dose 81 MG TAKE 2 TABLET BY MOUTH ONCE DAILY Oral for 90 Active Lisinopril-hydroCHLOROthiaz brittnee 10-12.5 MG TAKE 1 TABLET BY MOUTH EVERY DAY Oral for 90 Active Omeprazole 20 MG 1 capsule 30 minutes before morning meal Orally Once a day for 30 day(s) Active Rosuvastatin Calcium 40 MG Oral for 90 Active Calcium + D3 Active Centrum Silver Activ e SOCIAL HISTORY Tobacco Use: Social History Observation Description Date Details (start date - stop date) Never Smoker NA - NA Sex Assigned At : Social History Observation Description Sex Assigned At Unknown Tobacco Use/Smoking Question Answer Notes Patient is a nonsmoker Alcohol Screen Question Answer Notes Did you have a drink contain ing alcohol in the past year? Yes How often did you have a dri nk containing alcohol in the past year? Never (0 point) How many drinks did you have on a typical day when you were drinking in the past year? 1 or 2 drinks (0 point) How often did you have 6 or more drinks on one occasion in the past year? Never (0 point) Points 0 Interpretation Negative PROBLEMS Problem Type ICD Code Onset Dates Problem Status W/U Status Risk SNOMED Code Notes Problem Colon cancer screening (Z12.11) Active confirmed [id number] Problem Aspirin long-term use (Z79.82) Active confirmed [id number] VITAL SIGNS BMI 24.68 kg/m2 05/07/2023 Blood pressure systolic 000 mm Hg 05/07/20 23 Blood pressure diastolic 00 mm Hg 023 Height 72 in 05/07/2023 Temperature 97.5 degrees Fahrenheit 05/07/20 23 Weight 182 lbs 05/07/2023 Encounters Encounter Location Date Provider Diagnosis [facility] [address] [place] [phone] 05/07/2023 Armando Ortega Colon cancer screening Z12.11 and Aspirin long-term use Z79.82 ASSESSMENTS Encounter Date Diagnosis Assessment Notes Treatment Notes Treatment Clinical Notes 05/07/2023 Colon cancer screening (ICD-10 - Z12.11) Do not take the aspirin on the morning of the colonoscopy. 05/07/2023 Aspirin long-term use (ICD-10 - Z79.82) PLAN OF TREATMENT Treatment Notes Assessment Notes Colon cancer screening Do not take the a spirin on the morning of the colonoscopy. Future Test Test Name Order Date COLONOSCOPY 05/07/2023 Next Appt Details Follow Up: prn, Reason: Progress Notes * Examination Category Sub-Category Detail Notes General Examination GENERAL APPEARANCE: pleasant , well nourished, well developed, in no acute distress HEAD: EYES: sclera non-icteric EARS: NOSE: THROAT: NECK/THYROID: no cervical lymphade nopathy, neck supple HEART: S1, S2 normal CHEST: LUNGS: clear to auscultatio n bilaterally ABDOMEN: normal bowel sounds, no guarding or rigidity, no guarding or rigidity, no masses palpable, soft, nontender, nondistended NEUROLOGIC: alert and oriented SKIN: nonjaundiced, no spi juan pablo angiomata EXTREMITIES: no edema PERIPHERAL PULSES: BACK: BREASTS: MUSCULOSKELETAL: MALE GENITOURINARY: LYMPH NODES: RECTAL EXAM: FEMALE GENITOURINARY: ORAL CAVITY: mucosa moist
--- OUTSIDE RECORDS SUMMARY | 2024-09-30 12:29 | XMS_ITS ---
Author Organization Taras Maldonado MD Address [address] [place] [phone] Care Team Providers Care Salsa Dance Instructor Name Role Phone Taras Maldonado Primary Care Provider REASON FOR VISIT refill MEDICATIONS Medication SIG (Take, Route, Frequency, Duration) Notes Start Date End Date Status Rosuvastatin Calcium 40 MG 1 tablet Oral ly Once a day for 90 days Active Encounters Encounter Location Date Provider Diagnosis Taras Maldonado MD [address] [place] [address] [address] [place] [phone] 06/06/2024 Taras Maldonado Pure hypercholestero lemia E78.00 ASSESSMENTS Encounter Date Diagnosis Assessment Notes Treatment Notes Treatment Clinical Notes 06/06/2024 Pure hypercholestero lemia (ICD-10 - E78.00) PLAN OF TREATMENT Medication Medication Name Sig Start Date Stop Date Notes Rosuvastatin Calcium 40 MG 1 tablet Oral ly Once a day for 90 days Next Appt Details Provider Name:Taras Baldwin iecourtney, 10/13/2024 02:30:00 PM, [address] [facility], [address], [place], [place], [phone],
--- OUTSIDE RECORDS SUMMARY | 2024-09-30 12:29 | XMS_ITS ---
Author Organization [facility] Address [address] [place] [id number] Care Team Providers Care Lan Engineer Name Role Phone Erica NICHOLAS, Taras Primary Care Provider Armando Ayers Unavailable [phone] REASON FOR VISIT screening PROBLEMS Problem Type ICD Code Onset Dates Problem Status W/U Status Risk SNOMED Code Notes Problem Diverticulosis of large intestine without perforation or abscess without bleeding (K57.30) Active confirmed Diverticul ar disease of colon (212593062) Encounters Encounter Location Date Provider Diagnosis [facility] Outpatient [address] [place], [place] [phone] 07/27/2023 Armando Ortega Encounter for scre ening colonoscopy Z12.11 ; Colon polyps K63.5 ; Diverticulosis of large intestine without perforation or abscess without bleeding K57.30 and Other hemorrhoids K64.8 ASSESSMENTS Encounter Date Diagnosis Assessment Notes Treatment Notes Treatment Clinical Notes 07/27/2023 Encounter for screening colonoscopy (ICD-10 - Z12.11) 07/27/2023 Colon polyps (ICD-10 - K63.5) 07/27/2023 Diverticulosis of large intestine without perforation or abscess without bleeding (ICD-10 - K57.30) 07/27/2023 Other hemorrhoids (ICD-10 - K64.8) PLAN OF TREATMENT No Information
--- OUTSIDE RECORDS SUMMARY | 2024-09-30 12:29 | XMS_ITS ---
Author Organization Taras Maldonado MD Address [address] [place] [phone] Care Team Providers Care Ensemble Member Name Role Phone Taras Maldonado Primary Care Provider REASON FOR VISIT HDF IMMUNIZATIONS Vaccine Route Administration Date Status Comme nts Influenza High Dose IM Intramuscular 06/21/2024 Administer ed Encounters Encounter Location Date Provider Diagnosis Taras Maldonado MD [address] [place] [address] Drive [address] [place] [phone] 06/21/2024 Taras Maldonado Encounter for immunization Z23 ASSESSMENTS Encounter Date Diagnosis Assessment Notes Treatment Notes Treatment Clinical Notes 06/21/2024 Encounter for immunization (ICD-10 - Z23) PLAN OF TREATMENT Next Appt Details Provider Name:Taras suresh, 10/13/2024 02:30:00 PM, [address] [place] [address], Suite [facility], [place], [place], [phone],
--- OUTSIDE RECORDS SUMMARY | 2024-09-30 12:29 | XMS_ITS | Patient Health Record ---
Author Organization Taras Maldonado MD Address [address] [place], [place] [phone] Care Team Providers Care Mds Manager Name Role Phone Taras Maldonado Primary Care Provider [phone] ALLERGIES No Known Allergies RESULTS Component Value Reference Range Notes Hold Gold Reviewed date:12/10/2023 12:37:16 PM Interpretation: Performing Lab:[facility], [address] [place] [phone] Notes/Report: Teja Moody See Note Specimen held untested for 24 hours; Call to request Chemistry testing. Complete Blood Count Auto Di ff Reviewed date:12/10/2023 07:09:07 PM Interpretation: Performing Lab:[facility], [address] [place] [phone] Notes/Report: White Blood Count 6.8 4.8-10.8 X10*3/uL Red Blood Count 4.67 4.60-5.80 X10*6/uL Hemoglobin 15.2 14.0-18.0 g/dl Hematocrit 43.7 42.0-52.0 % Mean Corpuscular Volume 93.6 80.0-98.0 fL Mean Corpuscular Hemoglobin 32.5 27.0-33.0 pg Mean Corpuscular HGB Conc 34.8 31.0-36.0 g/dl Red Cell Distribution Width 12.1 11.0-16.0 % Platelet Count 181 160-400 X10*3/uL Mean Platelet Volume 8.7 9.4-12.4 fL Neutrophils Percent Auto 71.5 45-73 % Imm Gran Pct Auto 0.3 0.0-0.4 % Lymphocytes Percent Auto 18.5 20-40 % Monocytes Percent Auto 7.6 2-11 % Eosinophils Percent Auto 1.8 0-4 % Basophils Percent Auto 0.3 0-2 % NRBC Pct Auto 0.0 0.0-0.2 /100WBC Neutrophils Absolute Auto 4.9 2.0-8.3 x10*3/u L Imm Gran Abs Auto 0.02 0.00-0.03 X10*3/uL Lymphocytes Absolute Auto 1.3 1.2-4.9 X10*3/u L Monocytes Absolute Auto 0.5 0.1-1.2 X10*3/uL Eosinophils Absolute Auto 0.1 0.0-0.4 X10*3/u L Basophils Absolute Auto 0.0 0.0-0.2 X10*3/uL NRBC Abs Auto 0.000 0.0-0.012 X10*3/uL Blood Urea Nitrogen Reviewed date:12/17/2023 10:12:15 AM Interpretation:see back 12-17-2023 Performing Lab:[facility], [address] [place] [phone] Notes/Report: Blood Urea Nitrogen 32 9-16 mg/dL Creatinine Reviewed date:12/10/2023 05:05:17 PM Interpretation: Performing Lab:[facility], [address] [place] [phone] Notes/Report: Creatinine 1.42 0.5-1.4 mg/dL Estimated Glomerular Filt Rate 49 NOTE: For -[place] individuals, multiply the result by 1.210. Chronic Kidney Disease: Estimated GFR < 60 mL/min/1.73m2 Severe Kidney Disease: Estimated GFR < 15 mL/min/1.73m2 Hold Gold Reviewed date:01/12/2024 12:26:39 PM Interpretation: Performing Lab:[address] [phone] Notes/Report: Hold Gold See Note Specimen held untested for 24 hours; Call to request Chemistry testing. Blood Urea Nitrogen Reviewed date:01/12/2024 12:26:10 PM Interpretation: Performing Lab:[facility], [address] [place] [phone] Notes/Report: Blood Urea Nitrogen 22 9-16 mg/dL Creatinine Reviewed date:01/12/2024 12:35:27 PM Interpretation: Performing Lab:[facility], [address] [place] [phone] Notes/Report: Creatinine 1.30 0.5-1.4 mg/dL Estimated Glomerular Filt Rate 54 NOTE: For -[place] individuals, multiply the result by 1.210. Chronic Kidney Disease: Estimated GFR < 60 mL/min/1.73m2 Severe Kidney Disease: Estimated GFR < 15 mL/min/1.73m2 Hold Gold Reviewed date:04/21/2024 12:36:20 PM Interpretation: Performing Lab:[address] [phone] Notes/Report: Hold Gold See Note Specimen held untested for 24 hours; Call to request Chemistry testing. Liver Panel Reviewed date:04/21/2024 12:37:36 PM Interpretation: Performing Lab:[facility], [address] [place] [phone] Notes/Report: Bilirubin Total 1.7 0.0-1.0 mg/dL Bilirubin Direct 0.4 0.0-0.5 mg/dL Aspartate Amino Transferase 25 5-37 U/L Alanine Aminotransferase 25 0-40 U/L Total Protein 7.6 6.5-8.0 g/dL Albumin Level 4.7 3.5-5.0 g/dL Alkaline Phosphatase 67 39-117 U/L Blood Urea Nitrogen Reviewed date:04/21/2024 12:36:12 PM Interpretation: Performing Lab:[facility], [address] [place] [phone] Notes/Report: Blood Urea Nitrogen 23 9-16 mg/dL Creatinine Reviewed date:04/21/2024 12:36:49 PM Interpretation: Performing Lab:[address] [phone] Notes/Report: Creatinine 1.25 0.5-1.4 mg/dL Estimated Glomerular Filt Rate 56 NOTE: For -[place]rit[place] individuals, multiply the result by 1.210. Chronic Kidney Disease: Estimated GFR < 60 mL/min/1.73m2 Severe Kidney Disease: Estimated GFR < 15 mL/min/1.73m2 Lipid Panel with Reflex Reviewed date:04/21/2024 12:39:20 PM Interpretation: Performing Lab:[facility], [address] [place] [address], [place] [address] Notes/Report: Triglycerides 202 <150 mg/dL Desirable Triglyceride: less than 150 mg/dL Borderline High Triglyceride 150-199 mg/dL High Triglyceride: 200-499 mg/dL Very High Triglyceride: greater than or equal to 5OO mg/dL Cholesterol 117 <200 mg/dL Desirable Cholesterol: less than 200 mg/dL Borderline High Cholesterol: 200-239 mg/dL High Cholesterol: greater than 239 mg/dL LDL Cholesterol Calculated 44 <100 mg/dL Desirable LDL: less than 100 mg/dL Near Optimal/Above Optimal LDL: 110-129 mg/dL Borderline High LDL: 130-159 mg/dL High LDL: 160-189 mg/dL Very High LDL: greater than or equal to 190 mg/dL HDL Cholesterol 33 >40 mg/dL Desirable HDL: greater than 40 mg/dL Note: This HDL assay may give artificially low results in patients with liver disease. REASON FOR REFERRAL No Information MEDICATIONS Medication SIG (Take, Route, Frequency, Duration) Notes Start Date End Date Status Vytorin 10-20 MG TAKE 1 TABLET BY KTEAN TH EVERY DAY Not-Taking Tetracycline HCl 250 MG 1 capsule Orally once a day Not-Taking Acetaminophen 325 MG 1 tablet as needed Orally every 4 hrs Not-Taking Ciclopirox 0.77 % 1 application to affected area Externally Twice a day Not-Javier sloan Nitrostat 0.4 MG as directed Sublingu al every 5 minutes times 3 for chest pain for 10 days 04/26/2019 Not-Taking amLODIPine Besylate 5 MG 1 tablet Orally Once a day 12/17/2023 Active Calcium Carbonate 600 MG as directed Orally Active Omeprazole 20 MG take one capsule by mouth every day Orally Once a day Active Centrum Men - as directed Orally Active Ciclopirox Olamine 0.77 % 1 application to affected area Externally Twice a day Not-Takin g Aspirin 81 MG 2tablet Orally Once a day Active Ibuprofen 800 MG 1 tablet Orally Thre e times a day for 30 day(s) 02/06/2015 Not-Taking Rosuvastatin Calcium 40 MG 1 tablet Orally Once a day for 90 days Active IMMUNIZATIONS Vaccine Route Administration Date Status Comme nts Flu Vaccine IM Intramuscular 06/18/2011 Administered Shingles IM Intramuscular 10/07/2011 Administered Flu Vaccine Unknown 06/23/2012 Administered [facility] TDaP IM Intramuscular 04/25/2013 Administered Flu Vaccine IM Intramuscular 07/12/2013 Administered Fluarix Quadrivalent IM Intramuscular 06/13/2014 Adminnikki red PPSV23 (Pnemovax) IM Intramuscular 04/06/2015 Administered Fluarix Quadrivalent IM Intramuscular 07/17/2015 Administe red Fluarix Quadrivalent IM Intramuscular 07/22/2016 Adminnikki red Prevnar 13 IM Intramuscular 01/27/2017 Administered Fluarix Quadrivalent IM Intramuscular 06/16/2017 Adminzache red Fluarix Quadrivalent IM Intramuscular 06/28/2018 Adminnikki red Shingrix IM Intramuscular 09/16/2018 Administered Shingrix IM Intramuscular 02/08/2019 Administered Fluarix Quadrivalent IM Intramuscular 06/20/2019 Adminnikki red PPSV23 (Pnemovax) IM Intramuscular 04/30/2020 Administered Influenza High Dose IM Intramuscular 06/14/2020 Administer ed SARS-COV-2 Moderna Unknown 12/06/2020 Administered SARS-COV-2 Moderna Unknown 01/03/2021 Administered Influenza High Dose IM Intramuscular 06/24/2021 Administer ed SARS-COV-2 Moderna Unknown 08/09/2021 Administered [facility] Influenza High Dose IM Intramuscular 06/13/2022 Administer ed Influenza High Dose IM Intramuscular 07/07/2023 Administer ed SARS-COV-2 Moderna Unknown 08/17/2023 Administered [facility] Influenza High Dose IM Intramuscular 06/21/2024 Administer ed Flu Vaccine Unknown 06/13/2014 Pending SOCIAL HISTORY Tobacco Use: Social History Observation Description Date Details (start date - stop date) Never Smoker NA - NA Sex Assigned At : Social History Observation Description Sex Assigned At Unknown Tobacco Use/Smoking Question Answer Notes Patient is a nonsmoker Additional Findings: Tobacco Non-User Cu rrent non-smoker, currently using no form of tobacco Alcohol Screen Question Answer Notes Did you have a drink contain ing alcohol in the past year? Yes How often did you have a dri nk containing alcohol in the past year? Monthly or less (1 point) How many drinks did you have on a typical day when you were drinking in the past year? 1 or 2 drinks (0 point) How often did you have 6 or more drinks on one occasion in the past year? 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) Active confirmed Lipoprotein deficiency disorder (802293441) Problem Tubular adenoma of colon (D12.6) Active confirmed 690822238 Problem Gastroesophageal reflux disease without esophagitis (K21.9) Active confirmed 784412117 Problem Elevated fasting blo od sugar (R73.01) Active confirmed 498920882 Problem Essential hypertensi on (I10) Active confirmed 50356364 Problem Basal cell carcinoma of antihelix of left ear (C44.219) Active confirmed 464680752 Problem Prostate cancer (C61) Active confirmed 471090379 Problem High triglycerides (E78.1) Active confirmed 119733324 Problem Coronary artery disease involving [place] coronary artery of [place] heart without angina pectoris (I25.10) Active confirmed 41955690 Problem Anemia due to other cause, not classified (D64.89) Active confirmed 390423437 Problem Memory changes (R41.3) Active confirmed Amnesia (02968369) Problem Pure hypercholesterolemia (E78.00) Active confirmed 591839406 Problem Coronary artery disease of [place] artery of 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) Active confirmed 352387865 Problem MCI (mild cognitive impairment) with memory loss (G31.84) Active confirmed 634266973 VITAL SIGNS Blood pressure diastolic 70 mm Hg 04/28/2024 Height 70.25 in 04/28/2024 Blood pressure systolic 144 mm Hg 04/28/2024 Weight 191 lbs 04/28/2024 BMI 27.21 kg/m2 04/28/2024 Encounters Encounter Location Date Provider Diagnosis Taras Maldonado MD [address] [place] [address] Drive [address] [place] [id number] 10/02/2023 Taras Maldonado Elevated BUN R79.9 ; Essential hypertension I10 ; Prostate cancer C61 ; Tubular adenoma of colon D12.6 ; Pure hypercholesterolemia E78.00 and MCI (mild cognitive impairment) with memory loss G31.84 Taras Maldonado MD [address] [place] [address] [address] [place] [id number] 12/10/2023 Taras Maldonado Elevated BUN R79.9 a nd Anemia due to other cause, not classified D64.89 Taras Maldonado MD [address] [place] [id number] 04/21/2024 Taras Maldonado Pure hypercholestero lemia E78.00 and Elevated BUN R79.9 Taras Maldonado MD [address] [place] [id number] 09/30/2024 Taras Maldonado Essential hypertensi on I10 ; Pure hypercholesterolemia E78.00 and Elevated fasting blood sugar R73.01 Taras Maldonado MD [address] [place] [id number] 01/12/2024 Taras Maldonado Lower abdominal pain R10.30 Taras Maldonado MD [address] [place] [id number] 06/21/2024 Taras Maldonado Encounter for immuni zation Z23 Taras Maldonado MD [address] [place] [id number] 12/17/2023 Taras Maldonado Lower abdominal pain R10.30 ; Elevated BUN R79.9 and Essential hypertension I10 Taras Maldonado MD [address] [place] [id number] 01/28/2024 Taras Maldonado Essential hypertensi on I10 and Elevated BUN R79.9 Taras Maldonado MD [address] [place] [id number] 04/28/2024 Taras Maldonado Essential hypertensi on I10 and Elevated BUN R79.9 Taras Maldonado MD [address] [place] [id number] 06/06/2024 Taras Maldonado Pure hypercholestero lemia E78.00 ASSESSMENTS Encounter Date Diagnosis Assessment Notes Treatment Notes Treatment Clinical Notes 10/02/2023 Elevated BUN (ICD-10 - R79.9) 10/02/2023 Essential hypertensi on (ICD-10 - I10) well controlled 12/10/2023 Elevated BUN (ICD-10 - R79.9) 12/10/2023 Anemia due to other cause, not classified (ICD-10 - D64.89) 04/21/2024 Elevated BUN (ICD-10 - R79.9) 04/21/2024 Pure hypercholestero lemia (ICD-10 - E78.00) 09/30/2024 Essential hypertensi on (ICD-10 - I10) 01/12/2024 Lower abdominal pain (ICD-10 - R10.30) 06/21/2024 Encounter for immunization (ICD-10 - Z23) 12/17/2023 Elevated BUN (ICD-10 - R79.9) pending labs, patient verbalized understanding of change in medication and directions for use. 12/17/2023 Lower abdominal pain (ICD-10 - R10.30) is minor and comes and goes in a second will just observe 01/28/2024 Elevated BUN (ICD-10 - R79.9) has improved off lisinopril, will continue to monitor 01/28/2024 Essential hypertensi on (ICD-10 - I10) doing well on meds, will continue current regiment 04/28/2024 Elevated BUN (ICD-10 - R79.9) has returned to baseline and cr is normal, will continue to monitor 04/28/2024 Essential hypertensi on (ICD-10 - I10) doing well on meds, will continue current regiment 06/06/2024 Pure hypercholestero lemia (ICD-10 - E78.00) 10/02/2023 Prostate cancer (ICD -10 - C61) no sign of recurrence 09/30/2024 Pure hypercholestero lemia (ICD-10 - E78.00) 12/17/2023 Essential hypertensi on (ICD-10 - I10) patient verbalized understanding of medication and directions for use 10/02/2023 Tubular adenoma of c olon (ICD-10 - D12.6) had recent colonoscopy dr marquez says no further colonoscopy neede 09/30/2024 Elevated fasting blo od sugar (ICD-10 - R73.01) 10/02/2023 Pure hypercholestero lemia (ICD-10 - E78.00) good numbers 10/02/2023 MCI (mild cognitive impairment) with memory loss (ICD-10 - G31.84) seems stable PLAN OF TREATMENT Pending Test Test Name Order Date Electrocardiogram (EKG) 08/04/2016 Electrocardiogram (EKG) 08/14/2017 Stress Test 04/12/2019 Complete Blood Count Auto Diff 4 Comprehensive Eva. Panel Fast 4 Lipid Panel 09/30/2024 PSA,Total (Free>4and<10) 09/30/2024 ECG holter monitor 48 hour 04/06/2023 Hemoglobin A1c 09/30/2024 UA ClnCatch+Micro w/rflx Cult 09/30/2024 Next Appt Details Provider Name:Taras Baldwin ier, 10/13/2024 02:30:00 PM, [address] [place] [address] Drive, [address], [place], [place], [phone], Insurance Providers Payer Name Payer Address Payer Phone Subscriber Number Group Number Insured Name Patient Relationship to Insured Coverage Start Date Coverage End Date MEDICARE [employer] [address] [place] [address] [id number] Erik Rosales Self - patient is the insured [facility] [address] [place] [phone] [id number] Erik Rosales Self - patient is the insured MEDICAL (GENERAL) HISTORY Medical History History ICD Code colonoscopy 08/07/13 at [facility]; colonoscopy 09/09/17 - [place] - repeat 5 years endoscopy 08/07/13 at [facility] DO RECTAL IN MARCH 2022 cabg 2018 Surgical History Surgery Date(Month/Year) prostatectomy [address] Gonzalez
--- OUTSIDE RECORDS SUMMARY | 2024-09-30 12:29 | XMS_ITS | Patient Health Record ---
Author Organization [facility] Address [address] [place] [address] Care Team Providers Care Clinical Analyst Name Role Phone Taras Maldonado MD Primary Care Provider Armando Ayers [phone] ALLERGIES No Known Allergies REASON FOR REFERRAL No Information MEDICATIONS Medication [...] Once a day for 30 day(s) Active Centrum Silver Activ e Rosuvastatin Calcium 40 MG Oral for 90 Active Calcium + D3 Active SOCIAL HISTORY Tobacco Use: Social History Observation [...] Problem Colon cancer screening (Z12.11) Active confirmed 443798184 Problem Aspirin long-term use (Z79.82) Active confirmed [id number] Problem Diverticulosis of large intestine without perforation or abscess without bleeding (K57.30) Active confirmed Diverticul ar disease of colon (590582015) PLAN OF TREATMENT Pending Test Test Name Order Date Pathology 07/27/2023 Future Test Test Name Order Date COLONOSCOPY 05/07/2023 Insurance Providers Payer Name Payer Address Payer Phone Subscriber Number Group Number Insured Name Patient Relationship to Insured Coverage Start Date Coverage End Date MEDICARE OF [place] [address] [place] [address] [phone] [id number] MAU RODRIGUEZ Self - patient is the insured [facility] [address] [place] [phone] [id number] MAU RODRIGUEZ Self - patient is the insured MEDICAL (GENERAL) HISTORY Medical History History ICD Code CAD with CABG as below Denies WA,DM,CVA,Lung disease,renal dise ase Prostate cancer--surgery and then XRT Colonoscopy in 08/2017 was n egative at [facility]. He can't recall if he had other colonoscopies prior to that with removal of polyps. Hyperlipidemia HTN Surgical History Surgery Date(Month/Year) 3 V CABG Appendectomy Tonsillectomy Prostatectomy
[2024-09-30 12:30] LABS: MANUAL DIFF FLAG NO
[2024-09-30 12:54] LABS: Appearance Urine Clear; Basophils Percent Auto 0.4 % (0-2); Color Urine Yellow; Eosinophils Absolute Auto 0.1 X10*3/uL (0.0-0.4); Eosinophils Percent Auto 2.3 % (0-4); Glucose Urine UA Negative (Negative); Hematocrit 42.1 % (42.0-52.0); Hemoglobin 14.8 g/dl (14.0-18.0); Imm Gran Abs Auto 0.01 X10*3/uL (0.00-0.03); Imm Gran Pct Auto 0.2 % (0.0-0.4); Leukocyte Esterase Urine Negative (Negative); Lymphocytes Percent Auto 18.6 % (20-40); Mean Corpuscular HGB Conc 35.2 g/dl (31.0-36.0); Mean Corpuscular Hemoglobin 33.3 pg (27.0-33.0); Mean Corpuscular Volume 94.6 fL (80.0-98.0); Mean Platelet Volume 8.9 fL (9.4-12.4); Monocytes Absolute Auto 0.5 X10*3/uL (0.1-1.2); Monocytes Percent Auto 8.5 % (2-11); Neutrophils Absolute Auto 3.7 x10*3/uL (2.0-8.3); Nitrite Urine Negative (Negative); PH 5.5 (5.0-9.0); Platelet Count 188 X10*3/uL (160-400); Red Blood Count 4.45 X10*6/uL (4.60-5.80); Red Cell Distribution Width 12.4 % (11.0-16.0); UMIC TRIGGER UACC YES; Urine Blood Small (1+) (Negative); Urine Ketones Negative (Negative); Urine Protein 100 (2+) mg/dL (Neg-Trace); White Blood Count 5.3 X10*3/uL (4.8-10.8)
[2024-09-30 13:03] LABS: Estimated Average Glucose 100 mg/dL; Hemoglobin A1C 119.6772 umol/L; Hemoglobin A1c % 5.1 % (<6.0); Total Hemoglobin (HGBA1C) 3731.6421 umol/L
[2024-09-30 13:05] LABS: Bacteria Urine None Seen (None Seen); Hyaline Casts Urine 0-2 /LPF (0-2); RBC Urine 0-2 /HPF (0-2); Squamous Epithelial Cell Urine 0-2 /HPF (0-2); WBC Urine 0-5 /HPF (0-5)
[2024-09-30 13:06] LABS: Other Crystals Urine Present
[2024-09-30 13:36] LABS: Alanine Aminotransferase 31 U/L (0-40); Albumin Level 4.6 g/dL (3.5-5.0); Alkaline Phosphatase 70 U/L (39-117); Anion Gap 11 (12-20); Aspartate Amino Transferase 46 U/L (5-37); Bilirubin Total 1.9 mg/dL (0.0-1.0); Blood Urea Nitrogen 19 mg/dL (9-16); Calcium 9.7 mg/dL (8.4-10.2); Carbon Dioxide 29 mmol/L (22-29); Chloride 108 mmol/L (96-108); Cholesterol 111 mg/dL (<200); Estimated Glomerular Filt Rate 58; Glucose Fasting 113 mg/dL (60-99); HDL Cholesterol 28 mg/dL (>40); LDL Cholesterol Calculated 37 mg/dL (<100); Potassium 3.7 mmol/L (3.3-5.1); Sodium 144 mmol/L (135-145); Total Protein 7.6 g/dL (6.5-8.0); Triglycerides 233 mg/dL (<150)
[2024-09-30 14:01] LABS: PSA,Total (Free>4and<10) < 0.10 ng/mL (0.00-4.00)
== END 2024-09-30 12:27 | disposition home or self-care (01) ==
LOC: HO.LNP 12:26
PROVIDERS: Visit Provider Internal Medicine
DX: I10 Essential (primary) hypertension (principal); E78.00 Pure hypercholesterolemia, unspecified; Z12.5 Encounter for screening for malignant neoplasm of prostate; R73.01 Impaired fasting glucose
CPT/HCPCS: 80053; 80061; 81001; 83036; 84153; 85025

== ENCOUNTER 2024-10-13 15:32 | Outpatient (REF) | payer MEDICARE, OTHER, SELFPAY ==
[2024-10-13 15:45] LABS: Appearance Urine Clear; Color Urine Yellow; Glucose Urine UA Negative (Negative); Leukocyte Esterase Urine Negative (Negative); Nitrite Urine Negative (Negative); Specific Gravity - Urine 1.025 (1.005-1.025); UMIC TRIGGER UA YES; Urine Blood Trace (Negative); Urine Ketones Negative (Negative); Urine Protein 100 (2+) mg/dL (Neg-Trace)
[2024-10-13 15:53] LABS: Bacteria Urine None Seen (None Seen); Granular Casts Urine Present; RBC Urine 0-2 /HPF (0-2); Squamous Epithelial Cell Urine 0-2 /HPF (0-2); WBC Urine 0-5 /HPF (0-5)
--- OUTSIDE RECORDS SUMMARY | 2024-10-13 17:04 | XMS_ITS ---
Author Organization Taras Maldonado MD Address [address] [place], [place] [id number] Care Team Providers Care Director Of Marketing [employer] Name Role Phone Taras Maldonado Primary Care Provider ALLERGIES No Known Allergies RESULTS Component Value Reference Range Notes Urinalysis and Microscopic ( Not yet reviewed by provider) Interpretation: Performing Lab:[facility], [address] [place] [id number] Notes/Report: Color Urine Yellow Appearance Urine Clear PH 5.0 5.0-9.0 Glucose Urine UA Negative Negative mg/dL Urine Blood Trace Negative Specific [place] - Urine 1.025 1.005-1.025 Urine Protein 100 (2+) Neg-Trace mg/dL Urine Ketones Negative Negative mg/dL Nitrite Urine Negative Negative Leukocyte Esterase Urine Negative Negative RBC Urine 0-2 0-2 /HPF WBC Urine 0-5 0-5 /HPF Squamous Epithelial Cell Urine 0-2 0-2 /HPF Bacteria Urine None Seen None Seen Hyaline Casts Urine 11-20 0-2 /LPF Granular Casts Urine Present Occult Blood, Stool, Guaiac Reviewed date:10/13/2024 03:19:42 PM Interpretation:Negative Performing Lab: Notes/Report: Negative Occult Blood, Stool, Guaiac Neg REASON FOR VISIT review labs/ must see urine, Accompanied by MEDICATIONS Medication SIG (Take, Route, Frequency, Duration) [...] Carbonate 600 MG as directed Orally Active SOCIAL HISTORY Tobacco Use: Social History [...] Never (0 point) Points 1 Interpretation Negative VITAL SIGNS BMI 27.49 kg/m2 10/13/2024 Blood pressure systolic 132 mm Hg 10/13/19 25 Blood pressure diastolic 64 mm Hg 025 Height 70.25 in 10/13/2024 Weight 193 lbs 10/13/2024 weight is up 2 pounds since 04-28-24 Encounters Encounter Location Date Provider Diagnosis Taras Maldonado MD [address] [place] [address] [address] [place], [place] [phone] 10/13/2024 Taras Maldonado Microscopic hematuri a R31.29 ; Essential hypertension I10 ; Elevated fasting blood sugar R73.01 ; Gastroesophageal reflux disease without esophagitis K21.9 ; Pure hypercholesterolemia E78.00 ; Colon cancer screening Z12.11 and Depression screening Z13.31 ASSESSMENTS Encounter Date Diagnosis Assessment Notes Treatment Notes Treatment Clinical Notes 10/13/2024 Microscopic hematuri a (ICD-10 - [...] well, will continue current regiment 10/13/2024 Pure hypercholestero lemia (ICD-10 - E78.00) stable, will continue currentregiment 10/13/2024 Colon cancer screeni ng (ICD-10 - Z12.11) guaiac negative 10/13/2024 Depression screening (ICD-10 - Z13.31) negative screen PLAN OF TREATMENT Medication Medication Name Sig [...] screening guaiac negative Depression screening negative screen Pending Test Test Name Order Date Urinalysis and Microscopic 10/13/2024 Next Appt Details Follow Up: 6 Months, Reason: bp Provider Name:Taras suresh, 04/13/2025 07:15:00 AM, [address] [place] [address], [address], [place], [phone], Provider Name:Taras suresh, 04/21/2025 01:30:00 PM, [address] [place] [address], [address], [place], [place], [phone], Provider Name:Taras Baldwin ier, 10/09/2025 08:15:00 AM, [address], [address], [place], [phone], Provider Name:Taras Baldwin kerwin, 10/16/2025 01:00:00 PM, [address], [address], [place], [phone], Progress Notes * Examination Category Sub-Category Detail Notes General Examination GENERAL APPEARANCE: well dev eloped, well nourished, in no acute distress HEAD: normocephalic, atrau matic EYES: pupils equal, round, reactive to light and accommodation, sclera non- icteric EARS: normal THROAT: clear NECK/THYROID: neck supple, [...] stool guaiac negative ORAL CAVITY: mucosa moist History and Physical Notes * HPI (History of Present Illness) Category Sub-Category Detail Notes Depression Screening PHQ-9 Little inte rest or pleasure in doing things: Not at all Feeling down, depressed, or hopeless: No t [...] Have you had any falls with injury in the past year?: No Have you had two or more falls in the st year?: No Communication Needs Communication Needs Does the patient have a hearing impairment: No Does the patient have a vision impairmen t?: Yes ?If yes, what is the vision impairment?: Glasses Does the patient have a cognition impair ment?: No
--- OUTSIDE RECORDS SUMMARY | 2024-10-13 17:04 | XMS_ITS ---
Author Organization Taras Maldonado MD Address [address] [place], [place] [id number] Care Team Providers Care Lye Boiler Name Role Phone Taras Maldonado Primary Care Provider [phone] RESULTS Component Value Reference Range Notes UA ClnCatch+Micro w/rflx Cul t (Not yet reviewed by provider) Interpretation:see back 10-13-2024 Performing Lab:[facility], [address] [place] [phone] Notes/Report: Urine, Clean Catch Color Urine Yellow Appearance Urine Clear PH 5.5 5.0-9.0 Glucose Urine UA Negative Negative mg/dL Urine Blood Small (1+) Negative Specific [place] - Urine 1.020 1.005-1.025 Urine Protein 100 (2+) Neg-Trace mg/dL Urine Ketones Negative Negative mg/dL Nitrite Urine Negative Negative Leukocyte Esterase Urine Negative Negative RBC Urine 0-2 0-2 /HPF WBC Urine 0-5 0-5 /HPF Squamous Epithelial Cell Urine 0-2 0-2 /HPF Other Crystals Urine Present Uric Ac id Bacteria Urine None Seen None Seen Hyaline Casts Urine 0-2 0-2 /LPF Complete Blood Count Auto Di ff Reviewed date:09/30/2024 04:30:46 PM Interpretation: Performing Lab:[facility], [address] [place] [phone] Notes/Report: White Blood Count 5.3 4.8-10.8 X10*3/uL [...] NRBC Abs Auto 0.000 0.0-0.012 X10*3/uL Comprehensive [place]. Panel Fa st Reviewed date:09/30/2024 04:29:05 PM Interpretation: Performing Lab:[facility], [address] [place] [phone] Notes/Report: Sodium 144 135-145 mmol/L Potassium 3.7 [...] Panel Reviewed date:09/30/2024 04:29:51 PM Interpretation: Performing Lab:[facility], [address] [place] [phone] Notes/Report: Triglycerides 233 <150 mg/dL Desirable Triglyceride: [...] (Free>4and<10) Reviewed date:09/30/2024 04:30:26 PM Interpretation: Performing Lab:[facility], [address] [place] [phone] Notes/Report: PSA,Total (Free>4and<10) < 0.10 0.00-4.00 ng/mL [...] A1c Reviewed date:09/30/2024 04:30:54 PM Interpretation: Performing Lab:[facility], [address] [place] [phone] Notes/Report: Hemoglobin A1c % 5.1 <6.0 % [...] average glucose, using the formula of the E6G-Daonafa Average Glucose study (ADAG), Diabetes Care, Vol.31,#8, May. 2007 REASON FOR VISIT FASTING LABS Encounters Encounter Location Date Provider Diagnosis Taras Maldonado MD [address] [place] [address] [place] [phone] 09/30/2024 Taras Maldonado Essential hypertensi on I10 ; Pure hypercholesterolemia E78.00 and Elevated fasting blood sugar R73.01 ASSESSMENTS Encounter Date Diagnosis Assessment Notes Treatment Notes Treatment Clinical Notes 09/30/2024 Essential hypertensi on (ICD-10 - I10) 09/30/2024 Pure hypercholestero lemia (ICD-10 - E78.00) 09/30/2024 Elevated fasting blo od sugar (ICD-10 - R73.01) PLAN OF TREATMENT Pending Test Test Name Order Date UA ClnCatch+Micro w/rflx Cult 09/30/2024 Next Appt Details Provider Name:Taras suresh, 04/13/2025 07:15:00 AM, [address] [place] [address], [address], [place], [place], [phone], Provider Name:Taras suresh, 04/21/2025 01:30:00 PM, [address] [place] [address], [address], [place], [place], [phone], Provider Name:Taras suresh, 10/09/2025 08:15:00 AM, [address] [place] [address], [address], [place], [phone], Provider Name:Taras suresh, 10/16/2025 01:00:00 PM, [address] [place] [address], [address], [place], [phone],
--- OUTSIDE RECORDS SUMMARY | 2024-10-13 17:05 | XMS_ITS ---
Author Organization [facility] Address [address] [place] [address] Care Team Providers Care Auto Striper Name Role Phone Erica NICHOLAS, Taras Primary Care Provider Armando Ayers Unavailable [phone] REASON FOR VISIT screening PROBLEMS Problem Type ICD Code Onset Dates Problem Status W/U Status Risk SNOMED Code Notes Problem Diverticulosis of large intestine without perforation or abscess without bleeding (K57.30) Active confirmed Diverticul ar disease of colon (060708769) Encounters Encounter Location Date Provider Diagnosis [facility] [address] [place], [place] [phone] 07/27/2023 Armando Ortega Encounter for scre ening [...]
--- OUTSIDE RECORDS SUMMARY | 2024-10-13 17:05 | XMS_ITS | Patient Health Record ---
Author Organization Taras Maldonado MD Address [address] [place], [place] [phone] Care Team Providers Care Medicare Nurse Name Role Phone Taras Maldonado Primary Care Provider ALLERGIES No Known Allergies RESULTS Component Value Reference Range Notes Hold Gold Reviewed date:12/10/2023 12:37:16 PM Interpretation: Performing Lab:[facility], [address] [place] [phone] Notes/Report: Teja Moody See Note Specimen held untested for 24 hours; Call to request Chemistry testing. Complete Blood Count Auto Di ff Reviewed date:12/10/2023 07:09:07 PM Interpretation: Performing Lab:[facility], [address] [place] [phone] Notes/Report: White Blood Count 6.8 4.8-10.8 X10*3/uL [...] date:12/17/2023 10:12:15 AM Interpretation:see back 12-17-2023 Performing Lab:[facility], [address] [place] [phone] Notes/Report: Blood Urea Nitrogen 32 9-16 mg/dL Creatinine Reviewed date:12/10/2023 05:05:17 PM Interpretation: Performing Lab:[facility], [address] [place] [phone] Notes/Report: Creatinine 1.42 0.5-1.4 mg/dL Estimated Glomerular Filt Rate 49 NOTE: For -[place] individuals, multiply the result by 1.210. Chronic Kidney Disease: Estimated GFR < 60 mL/min/1.73m2 Severe Kidney Disease: Estimated GFR < 15 mL/min/1.73m2 Hold Gold Reviewed date:01/12/2024 12:26:39 PM Interpretation: Performing Lab:[address] [phone] Notes/Report: Hold Gold See Note Specimen held untested for 24 hours; Call to request Chemistry testing. Blood Urea Nitrogen Reviewed date:01/12/2024 12:26:10 PM Interpretation: Performing Lab:[facility], [address] [place] [phone] Notes/Report: Blood Urea Nitrogen 22 9-16 mg/dL Creatinine Reviewed date:01/12/2024 12:35:27 PM Interpretation: Performing Lab:[facility], [address] [place] [phone] Notes/Report: Creatinine 1.30 0.5-1.4 mg/dL Estimated Glomerular Filt Rate 54 NOTE: For -[place] individuals, multiply the result by 1.210. Chronic Kidney Disease: Estimated GFR < 60 mL/min/1.73m2 Severe Kidney Disease: Estimated GFR < 15 mL/min/1.73m2 Hold Gold Reviewed date:04/21/2024 12:36:20 PM Interpretation: Performing Lab:[address] [phone] Notes/Report: Hold Gold See Note Specimen held untested for 24 hours; Call to request Chemistry testing. Liver Panel Reviewed date:04/21/2024 12:37:36 PM Interpretation: Performing Lab:[facility], [address] [place] [phone] Notes/Report: Bilirubin Total 1.7 0.0-1.0 mg/dL Bilirubin Direct 0.4 0.0-0.5 mg/dL Aspartate Amino Transferase 25 5-37 U/L Alanine Aminotransferase 25 0-40 U/L Total Protein 7.6 6.5-8.0 g/dL Albumin Level 4.7 3.5-5.0 g/dL Alkaline Phosphatase 67 39-117 U/L Blood Urea Nitrogen Reviewed date:04/21/2024 12:36:12 PM Interpretation: Performing Lab:[facility], [address] [place] [phone] Notes/Report: Blood Urea Nitrogen 23 9-16 mg/dL Creatinine Reviewed date:04/21/2024 12:36:49 PM Interpretation: Performing Lab:[address] [phone] Notes/Report: Creatinine 1.25 0.5-1.4 mg/dL Estimated Glomerular Filt Rate 56 NOTE: For -[place] individuals, multiply the result by 1.210. Chronic Kidney Disease: Estimated GFR < 60 mL/min/1.73m2 Severe Kidney Disease: Estimated GFR < 15 mL/min/1.73m2 Lipid Panel with Reflex Reviewed date:04/21/2024 12:39:20 PM Interpretation: Performing Lab:[facility], [address] [place] [phone] Notes/Report: Triglycerides 202 <150 mg/dL Desirable Triglyceride: [...] low results in patients with liver disease. UA ClnCatch+Micro w/rflx Cul t (Not yet reviewed by provider) Interpretation:see back 10-13-2024 Performing Lab:[facility], [address] [place] [phone] Notes/Report: Urine, Clean Catch Color Urine Yellow Appearance Urine Clear PH 5.5 5.0-9.0 Glucose Urine UA Negative Negative mg/dL Urine Blood Small (1+) Negative Specific [place] - Urine 1.020 1.005-1.025 Urine Protein 100 [...] ff Reviewed date:09/30/2024 04:30:46 PM Interpretation: Performing Lab:[facility], [address] [place] [phone] Notes/Report: White Blood Count 5.3 4.8-10.8 X10*3/uL [...] NRBC Abs Auto 0.000 0.0-0.012 X10*3/uL Comprehensive [place]. Panel Fa st Reviewed date:09/30/2024 04:29:05 PM Interpretation: Performing Lab:[facility], [address] [place] [phone] Notes/Report: Sodium 144 135-145 mmol/L Potassium 3.7 [...] Panel Reviewed date:09/30/2024 04:29:51 PM Interpretation: Performing Lab:[address] [phone] Notes/Report: Triglycerides 233 <150 mg/dL Desirable Triglyceride: [...] (Free>4and<10) Reviewed date:09/30/2024 04:30:26 PM Interpretation: Performing Lab:[address] [phone] Notes/Report: PSA,Total (Free>4and<10) < 0.10 0.00-4.00 ng/mL [...] A1c Reviewed date:09/30/2024 04:30:54 PM Interpretation: Performing Lab:[facility], [address] [place] [phone] Notes/Report: Hemoglobin A1c % 5.1 <6.0 % [...] average glucose, using the formula of the V1Y-Niwrsqe Average Glucose study (ADAG), Diabetes Care, Vol.31,#8, May. 2007 Urinalysis and Microscopic ( Not yet reviewed by provider) Interpretation: Performing Lab:[facility], [address] [place] [phone] Notes/Report: Color Urine Yellow Appearance Urine Clear PH 5.0 5.0-9.0 Glucose Urine UA Negative Negative mg/dL Urine Blood Trace Negative Specific [place] - Urine 1.025 1.005-1.025 Urine Protein 100 [...] Occult Blood, Stool, Guaiac Neg REASON FOR REFERRAL No Information MEDICATIONS Medication SIG (Take, Route, Frequency, Duration) Notes Start Date End Date Status Ciclopirox 0.77 % 1 application to affected area Externally Twice a day Not-Takin g Acetaminophen 325 MG 1 tablet as needed Orally every 4 hrs Not-Taking Nitrostat 0.4 MG as directed Sublingu al every 5 minutes times 3 for chest pain for 10 days 04/26/2019 Not-Taking Aspirin 81 MG 2tablet Orally Once a [...] a day for 90 days 10/13/2024 Active amLODIPine Besylate 5 MG 1.5 tablet Oral ly Once a day 12/17/2023 Active Calcium Carbonate 600 MG as directed Orally Active Rosuvastatin Calcium 40 MG 1 tablet Orally Once a day Active Omeprazole 20 MG take one capsule by mouth every day Orally Once a day Active IMMUNIZATIONS Vaccine Route Administration Date Status Comme nts Flu Vaccine IM Intramuscular 06/18/2011 Administered Shingles IM Intramuscular 10/07/2011 Administered Flu Vaccine Unknown 06/23/2012 Administered [facility] TDaP IM Intramuscular 04/25/2013 Administered Flu Vaccine IM Intramuscular 07/12/2013 Administered Fluarix Quadrivalent IM Intramuscular 06/13/2014 Administe red PPSV23 (Pnemovax) IM Intramuscular 04/06/2015 Administered Fluarix Quadrivalent IM Intramuscular 07/17/2015 Administe red Fluarix Quadrivalent IM Intramuscular 07/22/2016 Adminnikki red Prevnar 13 IM Intramuscular 01/27/2017 Administered Fluarix Quadrivalent IM Intramuscular 06/16/2017 Administe red Fluarix Quadrivalent IM Intramuscular 06/28/2018 Administe red Shingrix IM Intramuscular 09/16/2018 Administered Shingrix IM Intramuscular 02/08/2019 Administered Fluarix Quadrivalent IM Intramuscular 06/20/2019 Administe red PPSV23 (Pnemovax) IM Intramuscular 04/30/2020 Administered [...] cy (E78.6) Active confirmed 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) Problem Tubular adenoma of colon (D12.6) Active confirmed 274025899 Problem Gastroesophageal reflux disease without esophagitis (K21.9) Active confirmed 527135129 Problem Elevated fasting blo od sugar (R73.01) Active confirmed 082146358 Problem Essential hypertensi on (I10) Active confirmed 78919114 Problem Basal cell carcinoma of antihelix of left ear (C44.219) Active confirmed 651385571 Problem Prostate cancer (C61) Active confirmed 303856050 Problem High triglycerides (E78.1) Active confirmed 286826976 Problem 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 (I25.10) Active confirmed 36531159 Problem Anemia due to other cause, not classified (D64.89) Active confirmed 248652800 Problem Memory changes (R41.3) Active confirmed Amnesia (39647666) Problem Pure hypercholesterolemia (E78.00) Active confirmed 018128229 Problem 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) Active confirmed 6246894373320 Problem Cardiac arrhythmia, unspecified cardiac arrhythmia type (I49.9) Active confirmed 791696821 Problem Squamous cell carcinoma, 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) Active confirmed 571757412 Problem MCI (mild cognitive impairment) with memory loss (G31.84) Active confirmed 405727816 VITAL SIGNS Blood pressure diastolic 64 mm Hg 10/13/2024 misael ght is up 2 pounds since 04-28-24 Height 70.25 in 10/13/2024 weight is up 2 pounds since 04-28-24 Blood pressure systolic 132 mm Hg 10/13/2024 weig ht is up 2 pounds since 04-28-24 Weight 193 lbs 10/13/2024 weight is up 2 pounds since 04-28-24 BMI 27.49 kg/m2 10/13/2024 weight is up 2 pounds since 04-28-24 Encounters Encounter Location Date Provider Diagnosis Taras Maldonado MD [address] [place] [id number] 10/13/2024 Taras Maldonado Microscopic hematuri a R31.29 ; Essential hypertension I10 ; Elevated fasting blood sugar R73.01 ; Gastroesophageal reflux disease without esophagitis K21.9 ; Pure hypercholesterolemia E78.00 ; Colon cancer screening Z12.11 and Depression screening Z13.31 Taras Maldonado MD [address] [place] [id number] 12/10/2023 Taras Maldonado Elevated BUN R79.9 a nd Anemia due to other cause, not classified D64.89 Taras Maldonado MD [address] [place] [id number] 04/21/2024 Taras Maldonado Pure hypercholestero lemia E78.00 and Elevated BUN R79.9 Taras Maldonado MD [address] [id number] 09/30/2024 Taras Maldonado Essential hypertensi on I10 ; Pure hypercholesterolemia E78.00 and Elevated fasting blood sugar R73.01 Taras Maldonado MD [address] [place] [id number] 01/12/2024 Taras Maldonado Lower abdominal pain R10.30 Taras Maldonado MD [address] [place] [id number] 06/21/2024 Taras Maldonado Encounter for immuni zation Z23 Taras Maldonado MD [address] [place] [id number] 12/17/2023 Taras Maldonado Lower abdominal pain R10.30 ; Elevated BUN R79.9 and Essential hypertension I10 Taras Maldonado MD [address] [id number] 01/28/2024 Taras Maldonado Essential hypertensi on I10 and Elevated BUN R79.9 Taras Maldonado MD [address] [place] [id number] 04/28/2024 Taras Maldonado Essential hypertensi on I10 and Elevated BUN R79.9 Taras Maldonado MD [address] [id number] 06/06/2024 Taras Maldonado Pure hypercholestero lemia E78.00 ASSESSMENTS Encounter Date Diagnosis Assessment Notes Treatment Notes Treatment Clinical Notes 10/13/2024 Essential hypertensi on (ICD-10 - I10) a little higher than lillie hutton wants it so will increase to 10 mg, patient verbalized understanding of change in directions 10/13/2024 Microscopic hematuri a (ICD-10 - R31.29) 12/10/2023 Elevated BUN (ICD-10 - R79.9) 12/10/2023 Anemia due to other cause, not classified (ICD-10 - D64.89) 04/21/2024 Elevated BUN (ICD-10 - R79.9) 04/21/2024 Pure hypercholestero lemia (ICD-10 - E78.00) 09/30/2024 Essential hypertensi on (ICD-10 - I10) 09/30/2024 Pure hypercholestero lemia (ICD-10 - E78.00) 01/12/2024 Lower abdominal pain (ICD-10 - R10.30) [...] 06/06/2024 Pure hypercholestero lemia (ICD-10 - E78.00) 10/13/2024 Elevated fasting blo od sugar (ICD-10 - R73.01) stable, will continue to monitor 09/30/2024 Elevated fasting blo od sugar (ICD-10 - R73.01) 12/17/2023 Essential hypertensi on (ICD-10 - I10) patient verbalized understanding of medication and directions for use 10/13/2024 Gastroesophageal ref lux disease without esophagitis (ICD-10 - K21.9) doing well, will continue current regiment 10/13/2024 Pure hypercholestero lemia (ICD-10 - E78.00) stable, will continue currentregiment 10/13/2024 Colon cancer screeni ng (ICD-10 - Z12.11) guaiac negative 10/13/2024 Depression screening (ICD-10 - Z13.31) negative screen PLAN OF TREATMENT Pending Test Test Name Order Date Electrocardiogram (EKG) 08/04/2016 Electrocardiogram (EKG) 08/14/2017 Stress Test 04/12/2019 Urinalysis and Microscopic 10/13/2024 ECG holter monitor 48 hour 04/06/2023 UA ClnCatch+Micro w/rflx Cult 09/30/2024 Next Appt Details Provider Name:Taras suresh, 04/13/2025 07:15:00 AM, [address] [place] [address], [address], [place], [place], [phone], Provider Name:Taras suresh, 04/21/2025 01:30:00 PM, [address] [place] [address], [address], [place], [place], [phone], Provider Name:Taras Baldwin ier, 10/09/2025 08:15:00 AM, [address] [facility], [address], [place], [phone], Provider Name:Taras Baldwin ier, 10/16/2025 01:00:00 PM, [address] [facility], [address], [place], [phone], Insurance Providers Payer Name Payer Address Payer Phone Subscriber Number Group Number Insured Name Patient Relationship to Insured Coverage Start Date Coverage End Date MEDICARE [employer] [address] [place] [address] [id number] Erik Rosales Self - patient is the insured [facility] [address] [phone] [id number] Erik Rosales Self - patient is the insured MEDICAL (GENERAL) HISTORY Medical History History ICD Code colonoscopy 08/07/13 at [facility]; colonoscopy 09/09/17 - [facility] - repeat 5 years endoscopy 08/07/13 at [facility] DO RECTAL IN MARCH 2022 cabg 2019 Surgical History Surgery Date(Month/Year) prostatectomy [address] Gonzalez
--- OUTSIDE RECORDS SUMMARY | 2024-10-13 17:05 | XMS_ITS ---
Author Organization Taras Maldonado MD Address [address] [place] [phone] Care Team Providers Care Boarding Kennel Or Cattery Operator Name Role Phone Taras Maldonado Primary Care Provider REASON FOR VISIT HDF IMMUNIZATIONS Vaccine Route Administration Date Status Comme nts Influenza High Dose IM Intramuscular 06/21/2024 Administer ed Encounters Encounter Location Date Provider Diagnosis Taras Maldonado MD [address] [place] [id number] 06/21/2024 Taras Maldonado Encounter for immunization Z23 ASSESSMENTS Encounter Date Diagnosis Assessment Notes Treatment Notes Treatment Clinical Notes 06/21/2024 Encounter for immunization (ICD-10 - Z23) PLAN OF TREATMENT Next Appt Details Provider Name:Taras suresh, 04/13/2025 07:15:00 AM, [address] [place] [address], [phone], Provider Name:Taras suresh, 04/21/2025 01:30:00 PM, [address] [place] [address], [phone], Provider Name:Taras suresh, 10/09/2025 08:15:00 AM, [address] [place] [address], [phone], Provider Name:Taras suresh, 10/16/2025 01:00:00 PM, [address] [place] [address], [phone],
--- OUTSIDE RECORDS SUMMARY | 2024-10-13 17:06 | XMS_ITS ---
Author Organization [facility] Address [address] [place] [address] Care Team Providers Care Assembly Machine Feeder Name Role Phone Erica NICHOLAS, Taras Primary Care Provider Armando Ayers [phone] ALLERGIES No Known Allergies REASON FOR VISIT [...] Problem Colon cancer screening (Z12.11) Active confirmed 689352862 Problem Aspirin long-term use (Z79.82) Active confirmed 462484600238656 VITAL SIGNS BMI 24.68 kg/m2 05/07/2023 Blood pressure systolic 000 mm Hg 05/07/20 23 Blood pressure diastolic 00 mm Hg 023 Height 72 in 05/07/2023 Temperature 97.5 degrees Fahrenheit 05/07/20 23 Weight 182 lbs 05/07/2023 Encounters Encounter Location Date Provider Diagnosis [facility] [address] [place] [address] 05/07/2023 Armando Ortega Colon cancer screening Z12.11 [...]
--- OUTSIDE RECORDS SUMMARY | 2024-10-13 17:06 | XMS_ITS | Patient Health Record ---
Author Organization [facility] Address [address] [place] [address] Care Team Providers Care General Doc Name Role Phone Taras Maldonado MD Primary Care Provider Armando Ayers [phone] ALLERGIES No Known Allergies REASON FOR REFERRAL [...] Problem Colon cancer screening (Z12.11) Active confirmed 172906990 Problem Aspirin long-term use (Z79.82) Active confirmed 016712624287459 Problem Diverticulosis of large intestine without perforation or abscess without bleeding (K57.30) Active confirmed Diverticul ar disease of colon (729041364) PLAN OF TREATMENT Pending Test Test Name Order Date Pathology 07/27/2023 Future Test Test Name Order Date COLONOSCOPY 05/07/2023 Insurance Providers Payer Name Payer Address Payer Phone Subscriber Number Group Number Insured Name Patient Relationship to Insured Coverage Start Date Coverage End Date MEDICARE OF [place] [address] [place] [address] [phone] [id number] MAU RODRIGUEZ Self - patient is the insured [facility] INDEMNITY [address] [place] [phone] [id number] MAU RODRIGUEZ Self - patient is the insured MEDICAL (GENERAL) HISTORY Medical History History ICD Code CAD with CABG as below Denies ID,DM,CVA,Lung disease,renal dise ase Prostate cancer--surgery and then XRT Colonoscopy in 08/2017 was n egative at [facility]. He can't recall if he had other colonoscopies prior to that with removal of polyps. Hyperlipidemia HTN Surgical History Surgery Date(Month/Year) 3 V CABG Appendectomy Tonsillectomy Prostatectomy
== END 2024-10-13 15:33 | disposition home or self-care (01) ==
LOC: HO.LNP 15:32
PROVIDERS: Visit Provider Internal Medicine
DX: R31.29 Other microscopic hematuria (principal)
CPT/HCPCS: 81001

== ENCOUNTER 2024-11-15 08:30 | Outpatient (REF) | payer MEDICARE, OTHER, SELFPAY ==
[2024-11-15 10:46] LABS: Appearance Urine Clear; Color Urine Yellow; Glucose Urine UA Negative (Negative); Leukocyte Esterase Urine Negative (Negative); Nitrite Urine Negative (Negative); PH 5.5 (5.0-9.0); Specific Gravity - Urine 1.015 (1.005-1.025); Urine Blood Negative (Negative); Urine Ketones Negative (Negative); Urine Protein Trace mg/dL (Neg-Trace)
--- OUTSIDE RECORDS SUMMARY | 2024-11-15 11:32 | XMS_ITS | Clinical Summary ---
Author Organization [facility] Address [address] [place] [address] Care Team Providers Care Veterinary Toxicologist Name Role Phone Taras Maldonado Primary Care Provider [phone] Allergies Active Allergy Reactions Criticality Noted Date Comments Niacin Jaundice 03/07/2013 Medications multivitamin capsule Take 1 capsule by mouth daily. Active lisinopriL-hydrochl orothiazide (PRINZIDE,ZESTORETI C) 10-12.5 mg per tablet Take 1 tablet by mouth daily. 0 Active loratadine (CLARITIN) 10 mg tablet Take 10 mg by mouth once a day. 2 Active calcium carbonate (OS-JOSSELINE) 600 mg calcium (1,500 mg) tablet as directed Active omeprazole (PriLOSEC) 20 mg capsule every 24 hours. Active fluorouraciL (EFUDEX) 5% creamIndications:Ac tinic keratoses Apply to a thin layer and rub into affected areas on nose and cheeks BID x 2 weeks 40 g 2 Active aspirin 81 mg EC tabletIndications:C oronary artery disease involving solomon coronary artery of solomon heart without angina pectoris TAKE 2 TABLETS BY MOUTH ONCE DAILY 180 tablet 3 4 Active rosuvastatin (CRESTOR) 40 mg tabletIndications:M ixed hyperlipidemia TAKE 1 TABLET BY MOUTH EVERY DAY 90 tablet 4 Active Active Problems Problem Noted Date Diagnosed Date Syncope 04/21/2022 Assessment & Plan (04/21/2022 2:13 PM EDT): Patient with recent syncopal episode that occurred after doing yard work on a hot day after bending over and abruptly standing upright. Suspect orthostatic hypotension in the setting of possible dehydration. He does report ongoing episodes of postural lightheadedness however his orthostatic vital signs were negative in clinic today. He did test positive for COVID a few days after his syncopal episode. EKG today shows sinus bradycardia with no evidence of AV block. BP well controlled. Will obtain a 14 day cardiac event monitor and a TTE to further evaluate his symptoms. He is advised to practice orthostatic precautions and maintain adequate hydration. Calculus of kidney 11/07/2020 Complication of anesthesia 11/07/2020 Overview (11/07/2020): Feb 02, 2014 Entered By: DIXON RASHID Comment: difficult intubatation: Mallampati score grade 2, mouthApr 2013 Entered By: DIXON RASHID Comment: opening reduced, Thyromental distance reduced,Feb 02, 2014 Entered By: DIXON RASHID Comment: mask airway: Easy Other ill-defined and unknow n causes of morbidity and mortality 11/07/2020 Overview (11/07/2020): March 01, 2013 Entered By: DIXON RASHID Comment: Dr Anderson Neoplasm of uncertain behavior of skin 0 Conti angioma 05/07/2020 Lentigines 05/07/2020 Multiple benign nevi 05/07/2020 CAD (coronary artery disease) 05/31/2019 Assessment & Plan (04/21/2022 2:14 PM EDT): /p CABGx3 (GUZMAN-LAD, SVG-PDA, SVG-Diag) with Dr. Rodriguez on 05/31/2019. Denies angina. Continue ASA and statin therapy. Assessment & Plan (05/31/2019 9:01 AM EDT): Now status post CABG. S/P CABG x 3 05/31/2019 Overview (05/31/2019): GUZMAN to LAD, SVG to PDA, SVG to diagonal by Dr. Rodriguez on 05/31/2019. Assessment & Plan (06/01/2019 7:14 AM EDT): S/P CABG - ASA - beta-blockade - statin - Pacing: AAI Assessment & Plan (06/02/2019 6:56 PM EDT): GUZMAN to LAD, SVG to PDA, SVG to diagonal. ASA, BB, statin. Difficult airway 05/31/2019 Assessment & Plan (05/31/2019 11:48 AM EDT): No view with direct laryngoscope. Elective fiberoptic intubation. - Code airway protocol. Difficult intubation 05/04/2019 Seborrheic keratosis 04/23/2017 Conti angioma 04/23/2017 Benign essential hypertension 04/16/2017 Assessment & Plan (04/21/2022 2:13 PM EDT): Well controlled with lisinopril-hydrochlorothiazide 10-12.5 mg daily History of basal cell carcinoma (BCC) 09/12/2015 Malignant neoplasm of prostate 08/31/2015 High risk medication use 04/18/2015 Actinic keratosis 08/17/2013 Bilateral inguinal hernia 10/12/2011 Overview (11/07/2020): March 01, 2013 Entered By: DIXON RASHID Comment: s/p repair Mass of neck 10/12/2009 Overview (11/07/2020): Feb 02, 2014 Entered By: DIXON RASHID Comment: MRI left ant neck lipomaFeb 02, 2014 Entered By: DIXON RASHID Comment: asym enlged left parotid gland, Hyperlipidemia 05/23/2009 Assessment & Plan (04/21/2022 2:13 PM EDT): Lipids Latest Ref Rng & Units 08/28/2021 08/30/2020 08/25/2019 CHOLESTEROL <200 mg/dL 109 - 88 CHOLESTEROL, POCT <200 mg/dL <100 124 <100 TRIGLYCERIDES <150 mg/dL 158(H) - 137 TRIGLYCERIDES, POCT <150 mg/dL 139 184(H) 130 HDL 40 - 59 mg/dL 31(L) - 25(L) HDL, POCT 40 - 59 mg/dL 28(L) 30(L) 22(L) LDL <100 mg/dL 46 - 36 LDL, POCT <=130 mg/dL - 57 - DIRECT LDL <130 mg/dL - - - Continue crestor 40 mg daily Assessment & Plan (05/31/2019 9:19 AM EDT): Preadmission Crestor restarted. Hypertension Assessment & Plan (05/31/2019 9:36 AM EDT): Preadmission lisinopril-HCTZ. Will hold for now. GERD (gastroesophageal reflux disease) Assessment & Plan (05/31/2019 9:19 AM EDT): Preadmission omeprazole. Will start Protonix postop. Resolved Problems Problem Noted Date Diagnosed Date Resolved Date Fluid overload 06/01/2019 07/15/2019 Assessment & Plan (06/02/2019 6:56 PM EDT): Lasix 40 mg PO BID Assessment & Plan (06/01/2019 7:14 AM EDT): Post-CPB volume overload from third spacing. - Diurese - 1 L over 24 hours. - Follow daily BUN, Creatinine, Na, K, Mg. Postprocedural hypotension 05/31/2019 0 06/01/2019 Assessment & Plan (05/31/2019 11:46 AM EDT): Post-CPB vasodilation resulting in hypotension on titrated norepinephrine - Titrate norepinephrine to MAP > 60-65 mm Hg. Ensure euvolemia while on norepinephrine treatment by volume loading and maintaining flow. Monitor for peripheral ischemic events while on norepinephrine. Assessment & Plan (05/31/2019 9:20 AM EDT): Will wean norepinephrine infusion as tolerated. Bradycardia 05/31/2019 06/03/2019 Assessment & Plan (06/02/2019 6:56 PM EDT): Baseline preadmission heart rate in 50s. Currently sinus rhytm in the 70s - 80s BB stared POD#2, will titrate per hemodynamics Postoperative hypovolemia 05/31/2019 Assessment & Plan (05/31/2019 11:47 AM EDT): Hypovolemia, postoperative from third space losses - Volume loading guided by invasive monitors. Myocardial ischemia 04/21/2019 05/31/20 Overview (04/21/2019): Added automatically from request for surgery [id number] PLATA (dyspnea on exertion) 04/21/2019 Overview (04/22/2019): Added automatically from request for surgery [id number] Positive cardiac stress test 04/21/2019 05/31/2019 Overview (04/22/2019): Added automatically from request for surgery [id number] Family History Medical History Relation Name Comments Other Father Family History of cardiac disorder Other Mother Family History of diabetes mellitus Relation Name Status Comments Father Mother Social History Tobacco Use Types Packs/Day Years Used Date Smoking Tobacco: Never Smokeless Tobacco: Never Tobacco Cessation:Counseling Given: Not Answered Comments:: Alcohol Use Standard Drinks/Week Comments Yes 0 (1 standard drink = 0.6 oz pur e alcohol) Sex and Gender Information Value Date Recorded Sex Assigned at Male 05/03/2019 11:00 AM EDT Legal Sex Male 9:46 AM EDT Gender Identity Male 05/03/2019 11:00 AM EDT Sexual Orientation Straight 05/03/2019 11 :00 AM EDT Last Filed Vital Signs Vital Sign Reading Time Taken Comments Blood Pressure 126/76 08/07/2022 7:49 AM EDT Pulse 65 08/07/2022 7:49 AM EDT Temperature 36.8 ??C (98.2 ??F) 07/08/2022 8:17 AM ED T Respiratory Rate 20 07/08/2022 8:17 AM EDT Oxygen Saturation 98% 07/08/2022 8:17 AM EDT Inhaled Oxygen Concentration - - Weight 85.8 kg (189 lb 3.2 oz) 07/08/2022 8:17 A M EDT Height 182.9 cm (6') 07/08/2022 8:17 AM EDT Body Mass Index 25.66 07/08/2022 8:17 AM EDT Plan of Treatment Health Maintenance Due Date Last Done Comments Cologuard 1950 Colon Cancer Screening 1950 Colonoscopy 1950 FOBT / Fit Test 1950 Hepatitis C Screening 1950 Sigmoidoscopy 1950 Basic Metabolic Panel 08/28/2022 08/28/2021 , 08/30/2020, 08/25/2019, Additional history exists RSV Vaccine (60+ years old and patients) (1 - 1-dose 75+ series) 2024 COVID-19 Vaccine ( season) 2024 08/17/2023, 08/17/2023, 07/11/2022, Additional history exists Alcohol/Substance Use Screening 10/12/2024 Depression Screening and Follow-Up 10/12/2024 Health Care Proxy Review 10/12/2024 Social Drivers of Health Annual Screening 10/12/2024 DTaP,Tdap,and Td Vaccines (2 - Tdap) 04/23/2025 04/23/2015 Zoster Vaccines Completed 02/08/2019, 03/2018, 10/06/2011 Pneumococcal Vaccine: 65+ Years Completed 04/30/2020, 01/27/2017, 04/11/2014 Influenza Vaccine Completed 06/21/2024, , 06/13/2022, Additional history exists Hepatitis B Vaccines Aged Out No long er eligible based on patient's age to complete this topic Procedures * Due to [place] [employer] law, this organization might not be sharing negative HIV tests. Procedure Name Priority Date/Time Associated Diagnosis Comments BASIC METABOLIC PANEL Routine 08/28/2021 9:41 AM EST Mixed hyperlipidemia from Last 3 Months or Most Recently Relevant to Health Maintenance Results * Due to [place] [employer] law, this organization might not be sharing negative HIV tests. * (ABNORMAL) Basic Metabolic Panel (08/28/2021 9:41 AM EST) NA 139 135 - 145 mmol/L 08/28/2021 11:45 AM EST [facility] K 4.0 3.5 - 5.3 mmol/L 08/28/2021 11:45 AM EST [facility] Cl 103 97 - 110 mmol/L 08/28/2021 11:45 AM EST [facility] CO2 31 24 - 32 mmol/L 08/28/2021 11:45 AM EST [facility] BUN 23 7 - 23 mg/dL 08/28/2021 11:45 AM EST [facility] Creatinine 1.30 0.60 - 1.30 mg/dL 08/28/2021 11:45 AM EST [facility] Glucose 97 70 - 99 mg/dL 08/28/2021 11:45 AM EST [facility] Calcium 9.3 8.7 - 10.7 mg/dL 08/28/2021 11:45 AM EST [facility] Anion Gap 5 5 - 15 08/28/2021 11:45 AM EST [facility] eGFR Non- 55(L) >=90 mL/min/BSA 08/28/2021 11:45 AM EST [facility] eGFR 63(L) >=90 mL/min/BSA 08/28/2021 11:45 AM EST [facility] Comment: Units = mL/min/1.73 m2 Glomerular Filtration Rate (GFR) is estimated based on the CKD-EPI Creatinine Equation (2009). Stage ?Description ? GFR 1 ? Normal ? >=90 mL/min/BSA 2 ? Mildly decreased GFR ? 60-89 mL/min/BSA 3 ? Moderately decreased GFR ? 30-59 mL/min/BSA 4 ? Severely decreased GFR ? 15-29 mL/min/BSA 5 ? Kidney Failure ? <15 mL/min/BSA Blood Structure of peripheral vein / Unknown Venipuncture / Unknown 08/28/2021 9:41 AM EST 08/28/2021 11:15 AM EST us Kimberly De Souza MD LAB BLOOD ORDERABLES Final Resu lt [facility] [address] [place] [address], from Last 3 Months or Most Recently Relevant to Health Maintenance Insurance MEDICARE [facility] Advance Directives * Full Code (Latest Code Status on File) Date Activated Date Inactivated Comments 05/31/2019 11:14 AM 06/04/2019 3:18 PM * Full Code Date Activated Date Inactivated Comments 05/31/2019 5:35 AM 05/31/2019 11:14 AM * Full Code Date Activated Date Inactivated Comments 04/29/2019 9:49 AM 04/29/2019 2:15 PM * Full Code Date Activated Date Inactivated Comments 04/29/2019 6:20 AM 04/29/2019 9:49 AM Care Teams Veterinary Toxicologist Relationship Specialty Start Date End Date Taras Maldonado [address] [place] [address] [place] [address] PCP - General 04/30/17
--- OUTSIDE RECORDS SUMMARY | 2024-11-15 11:32 | XMS_ITS | Referral Summary ---
Author Organization [facility] Address [address] [place] [address] Care Team Providers Care Associate Consulting Engineer Name Role Phone Taras Maldonado Primary Care Provider [phone] Allergies Active Allergy Reactions Criticality Noted Date [...] mg EC tabletIndications:C oronary artery disease involving [place] coronary artery of [place] heart without angina pectoris TAKE 2 TABLETS [...] (04/21/2019): Added automatically from request for surgery [id number] PLATA (dyspnea on exertion) 04/21/2019 Overview (04/22/2019): Added automatically from request for surgery [id number] Positive cardiac stress test 04/21/2019 05/31/2019 Overview (04/22/2019): Added automatically from request for surgery [id number] Social History Tobacco Use Types Packs/Day Years [...] 07/08/2022 8:17 AM EDT Plan of Treatment Not on file Procedures * Due to [place] [employer] law, this organization might not be sharing negative HIV tests. Procedure Name Priority Date/Time Associated Diagnosis Comments BASIC METABOLIC PANEL Routine 08/28/2021 9:41 AM EST Mixed hyperlipidemia from Last 3 Months or Most Recently Relevant to Health Maintenance Results * Due to [place] [employer] law, this organization might not be sharing [...] - 99 mg/dL 08/28/2021 11:45 AM EST [facility] Calcium 9.3 8.7 - 10.7 mg/dL 08/28/2021 11:45 AM EST [facility] Anion Gap 5 5 - 15 08/28/2021 11:45 AM EST [facility] eGFR Non- 55(L) >=90 mL/min/BSA 08/28/2021 11:45 AM EST [facility] eGFR 63(L) >=90 mL/min/BSA 08/28/2021 11:45 AM EST [facility] Comment: Units [...] MD LAB BLOOD ORDERABLES Final Resu lt [facility] [address] [place] [address], from Last 3 Months or Most Recently Relevant to Health Maintenance Insurance MEDICARE [employer] Advance Directives * Full Code (Latest Code [...] 6:20 AM 04/29/2019 9:49 AM Care Teams Associate Consulting Engineer Relationship Specialty Start Date End Date Taras Maldonado [address] [place] [address] dr [place], [place] [address] PCP - General 04/30/17
--- OUTSIDE RECORDS SUMMARY | 2024-11-15 11:32 | XMS_ITS ---
Author Organization [facility] Address [address] [place] [address] Care Team Providers Care Liner Machine Operator Name Role Phone Erica Taras Primary Care Provider [phone] Active Problems Problem Noted Date Diagnosed Date [...] EDT): Preadmission omeprazole. Will start Protonix postop. Current Oncology Plans No current plan information found. Past Plans No past plan information found. Radiation Treatments * No radiation treatments are documented for this patient in [facility]. Treatments may have been administered in another system. Lifetime Dose Tracking * Chemical Lifetime Dose Automatic Entry Manual Entr y Radiation - mGy 209 mGy 0 mGy 209 mGy Resolved Problems Problem Noted Date Diagnosed Date [...] by invasive monitors. Myocardial ischemia 04/21/2019 05/31/20 19 Overview (04/21/2019): Added automatically from request for surgery [id number] PLATA (dyspnea on exertion) 04/21/2019 Overview (04/22/2019): Added automatically from request for surgery [id number] Positive cardiac stress test 04/21/2019 05/31/2019 Overview (04/22/2019): Added automatically from request for surgery [id number]
== END 2024-11-15 08:31 | disposition home or self-care (01) ==
LOC: HO.LNP 08:30
PROVIDERS: Visit Provider Internal Medicine
DX: R31.9 Hematuria, unspecified (principal)
CPT/HCPCS: 81003

== ENCOUNTER 2025-04-11 13:06 | Outpatient (REF) | payer MEDICARE, OTHER, SELFPAY ==
--- OUTSIDE RECORDS SUMMARY | 2024-11-15 04:30 | XMS_ITS ---
Author Organization Taras Maldonado MD Address [address] [place] [phone] Care Team Providers Care Catalog Specialist Name Role Phone Taras Maldonado Primary Care Provider REASON FOR VISIT U/A Hematuria Encounters Encounter Location Date Provider Diagnosis Taras Maldonado MD [address] [place] [address] [phone] 11/15/2024 Taras Maldonado Hematuria R31.9 Assessments Encounter Date Diagnosis (ICD Code) Assessment Notes Treatment Notes Treatment Clinical Notes Section Notes 11/15/2024 Hematuria (ICD-10 - R31.9) Plan Of Treatment Next Appt Details Provider Name:Taras suresh, 04/25/2025 01:30:00 PM, [address] [place] [address], [phone], Provider Name:Taras suresh, 10/09/2025 08:15:00 AM, [address] [place] [address], [phone], Provider Name:Taras suresh, 10/16/2025 01:00:00 PM, [address] [place] [address], [phone], Progress Notes * Gómez ROSALESDOB: (75 yo M)Acc No.[id number]:11/15/2024 Progress Note Patient: Meli Gómez GOMEZ Provider: Destiney Maldonado MD :1950 A ge:74 Y S ex:Male Date:11/15/2024 Address:[address] [place] [phone] Subjective: * Chief Complaints: * 1 . [...] MD Date: 0 11/15/2024 Generated for Michael vázquez/Raymond/Leoniditting on: 0 04/11/2025 02:08 PM EDT
--- OUTSIDE RECORDS SUMMARY | 2025-04-11 14:09 | XMS_ITS | Patient Health Record ---
Author Organization [facility] Address [address] [place] [address] Care Team Providers Care Language Tutor Name Role Phone Taras Maldonado MD Primary Care Provider Armando Ayers [phone] Allergies No Known Allergies Reason For Referral No Information Medications Medication SIG (Take, Route, Frequency, Duration) [...] for 90 Active Calcium + D3 Active Social History Tobacco Use: Social History [...] Never (0 point) Points 0 Interpretation Negative Problems Problem Type SNOMED Code ICD Code Onset Dates Problem Status W/U Status Risk Notes Problem [id number] Colon cancer screening (Z12.11) Active confirmed Problem Diverticular disease of colon (844186649) Diverticulosis of large intestine without perforation or abscess without bleeding (K57.30) Active confirmed Problem [id number] Aspirin long-ter m use (Z79.82) Active confirmed Plan Of Treatment Pending Test Test Name Order Date Pathology 07/27/2023 Future Test Test Name Order Date COLONOSCOPY 05/07/2023 Insurance Providers Payer Name Payer Address Payer Phone Subscriber Number Group Number Insured Name Patient Relationship to Insured Coverage Start Date Coverage End Date MEDICARE OF [place] [address] [place] [address] [id number] MICHAELMAU Self - patient is the insured [employer] [address] [place] [address] [id number] MICHAELMAU Self - patient is the insured Medical (General) History Medical History History ICD Code CAD with CABG as below Denies [place],DM,CVA,Lung disease,renal dise ase Prostate cancer--surgery and then XRT Colonoscopy in 08/2017 was n egative at [facility]. He can't recall if he had other colonoscopies prior to that with removal of polyps. Hyperlipidemia HTN Surgical History Surgery Date(Month/Year) 3 V CABG Appendectomy Tonsillectomy Prostatectomy
--- OUTSIDE RECORDS SUMMARY | 2025-04-11 14:09 | XMS_ITS ---
Author Organization [facility] Address [address] [place] [address] Care Team Providers Care Night Worker Name Role Phone Erica Taras Primary Care Provider [phone] Active Problems Problem Noted Date Diagnosed Date [...] Preadmission omeprazole. Will start Protonix postop. Current Treatment and Therapy Plans No current plan information found. Past Treatment and Therapy Plans No past plan information found. Lifetime Dose Tracking * Chemical Lifetime Dose [...] (04/21/2019): Added automatically from request for surgery [id number] PLATA (dyspnea on exertion) 04/21/2019 Overview (04/22/2019): Added automatically from request for surgery [id number] Positive cardiac stress test 04/21/2019 05/31/2019 Overview (04/22/2019): Added automatically from request for surgery [id number]
[2025-04-11 14:29] LABS: Alanine Aminotransferase 19 U/L (0-40); Albumin Level 4.8 g/dL (3.5-5.0); Alkaline Phosphatase 71 U/L (39-117); Aspartate Amino Transferase 33 U/L (5-37); Cholesterol 173 mg/dL (<200); HDL Cholesterol 30 mg/dL (>40); Total Protein 7.3 g/dL (6.5-8.0); Triglycerides 302 mg/dL (<150)
[2025-04-11 14:34] LABS: Reflex LDLD? No
== END 2025-04-11 13:07 | disposition home or self-care (01) ==
LOC: HO.LNP 13:06
PROVIDERS: Visit Provider Internal Medicine
DX: E78.00 Pure hypercholesterolemia, unspecified (principal)
CPT/HCPCS: 80061; 80076

== ENCOUNTER 2025-04-25 10:48 | Outpatient (REF) | payer MEDICARE, OTHER, SELFPAY ==
--- OUTSIDE RECORDS SUMMARY | 2025-04-25 05:00 | XMS_ITS ---
Author Organization Taras Maldonado MD Address [address] [place], [place] [phone] Care Team Providers Care Big Machine Consultant Name Role Phone Taras Maldonado Primary Care Provider Allergies No Known Allergies Results Component Value Reference Range Notes Vitamin B12 and Folate (Not yet reviewed by provider) Interpretation: Performing Lab:[facility], [address] [place] [phone] Notes/Report: Vitamin B12 387 200-900 pg/mL NORMAL 200-900 PG/ML INDETERMINATE 160-199 PG/ML DEFICIENT < 160 PG/ML Folate 10.5 > or = 4.0 ng/mL Reference Values: > or = 4.0 ng/mL < 4.0 ng/mL suggests folate deficiency Methotrexate, aminopterin and folinic acid (leucovorin) are chemotherapeutic agents whose molecular structures are similar to folate; therefore, the Ground Support Equipment Mechanic folate assay cannot be used for patients [...] kg/m2 04/25/2025 weight is down 8 pounds [facility] e 10-13-24 Encounters Encounter Location Date Provider Diagnosis Taras Maldonado MD [address] [place] [address] [address] [place], [place] [phone] 04/25/2025 Taras Maldonado MCI (mild cognitive impairment) G31.84 ; High triglycerides E78.1 and 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 needs to get back on statins Plan Of Treatment Treatment Notes Assessment Notes MCI (mild cognitive impairment) is getti ng worse, pending abs, will continue to monitor High triglycerides had been better on s tatin Coronary artery disease of n ative artery of [place] heart with stable angina pectoris not taking his statin. needs to get back on statins Pending Test Test Name Order Date Vitamin B12 and Folate 04/25/2025 Next Appt Details Follow Up: 3 Months, Reason: Provider Name:Taras Baldwin ier, 08/03/2025 10:30:00 AM, [address], [address], [place], [phone], Provider Name:Taras Baldwin ier, 10/09/2025 08:15:00 AM, [address], [address], [place], [phone], Provider Name:Taras Baldwin ier, 10/16/2025 01:00:00 PM, [address], [address], [place], [place], [phone], Progress Notes * Erik ROSALESDOB: [birth year] (75 yo M)Acc No.[id number]:04/25/2025 Progress Notes Patient: Erik GUEVARA Lore Provider: Destiney Maldonado MD :1950 A ge:75 Y S ex:Male Date:04/25/2025 Address:[address] [place], [place] [id number] Subjective: * Chief Complaints: * 1 . 6 MO F/U. 2. The doctor daughter would like B12 and Folate checked. 3. Feels he is much worse within the past 4 weeks ? other labs. 4. Accompanied by . * HPI: S ymptom(s): patient is a [...] D enies N ausea. * Medical History: c olonoscopy 08/07/13 at [facility]; colonoscopy 09/09/17 - [facility] - repeat 5 years, endoscopy 08/07/13 at [facility], DO RECTAL IN MARCH 2022, Cabg 2018. * Medications: T aking Vitamin D 25 MCG (1000 UT) Tablet 1 tablet Orally Once a day , Taking Aspirin 81 MG Tablet Delayed Release 2tablet Orally Once a day , Taking Calcium Carbonate 600 MG Tablet as directed Orally , Taking amLODIPine Besylate 10 MG Tablet 1 tablet Orally Once a day , Not-Taking/PRN Nitrostat 0.4 MG Tablet Sublingual as directed Sublingual every 5 minutes times 3 for chest pain , Not-Taking/PRN Acetaminophen 325 MG Tablet 1 tablet as needed Orally every 4 hrs , Not-Taking/PRN Ciclopirox 0.77 % Gel 1 application to affected area Externally Twice a day , Not-Taking/PRN Vytorin 10-20 MG Tablet TAKE 1 TABLET BY MOUTH EVERY DAY , Not-Taking/PRN Tetracycline HCl 250 MG Capsule 1 capsule Orally once a day , Not-Taking/PRN Ciclopirox Olamine 0.77 % Cream 1 application to affected area Externally Twice a day , Not-Taking/PRN Ibuprofen 800 MG Tablet 1 tablet Orally Three times a day , Discontinued amLODIPine Besylate 5 MG Tablet 1.5 tablet Orally Once a day , Discontinued Omeprazole 20 MG Capsule Delayed Release take one capsule by mouth every day Orally Once a day , Discontinued Rosuvastatin Calcium 40 MG Tablet 1 tablet Orally Once a day , Medication List reviewed and reconciled with the patient * Allergies: N .K.D.A. Objective: * Vitals: H t: 70.25, Wt: [...] 3 . C oronary artery disease of [place] artery of [place] heart with stable angina pectoris - I25.118 Plan: * Treatment: 2. H igh triglycerides Notes: had been better on statin 3. C oronary artery disease of [place] artery of [place] heart with stable angina pectoris Notes: not taking his statin. needs to get back on statins * Follow Up: 3 Months * * The named appointment provid er may or may not be the originator of this progress note, and it is not deemed complete until electronically signed by the appointment provider. Sign off status: Pending * Provider: Destiney Maldonado MD Date: 0 04/25/2025 Generated for Michael vázquez/Raymond/Leoniditting on: 0 04/25/2025 12:09 PM EDT History and Physical Notes * HPI (History of Present Illness) Category Sub-Category Detail Notes Category Not es Symptom(s) patient is a 75 yo male here for 6 month follow up visit/ has gotten a lot more confused in last 4 weeks/ has no sense of time and days of the week
[2025-04-25 11:51] LABS: Folate 10.5 ng/mL (> or = 4.0); Vitamin B12 387 pg/mL (200-900)
--- OUTSIDE RECORDS SUMMARY | 2025-04-25 12:09 | XMS_ITS | Patient Health Record ---
Author Organization [facility] Address [address] [place] [address] Care Team Providers Care Raw Stock Drier Tender Name Role Phone Taras Maldonado MD Primary Care Provider Armando Ayers [phone] Allergies No Known Allergies Reason For Referral [...] Problem Status W/U Status Risk Notes Problem [id number] Colon cancer screening (Z12.11) Active confirmed Problem Diverticular disease of colon (038154543) Diverticulosis of large intestine without perforation or abscess without bleeding (K57.30) Active confirmed Problem [id number] Aspirin long-ter m use (Z79.82) Active confirmed Plan Of Treatment Pending Test Test Name Order Date Pathology 07/27/2023 Future Test Test Name Order Date COLONOSCOPY 05/07/2023 Insurance Providers Payer Name Payer Address Payer Phone Subscriber Number Group Number Insured Name Patient Relationship to Insured Coverage Start Date Coverage End Date MEDICARE OF [place] [address] [place] [address] [id number] MICHAELMAU Self - patient is the insured [facility] IN[employer]MNITY [address] [place] [address] [id number] MICHAELMAU Self - patient is the insured Medical (General) History Medical History History ICD Code CAD with CABG as below Denies [place],DM,CVA,Lung disease,renal dise ase Prostate cancer--surgery and then XRT Colonoscopy in 08/2017 was n [facility]ative at [facility]. He can't recall if he had other colonoscopies prior to that with removal of polyps. Hyperlipidemia HTN Surgical History Surgery Date(Month/Year) 3 V CABG Appendectomy Tonsillectomy Prostatectomy
--- OUTSIDE RECORDS SUMMARY | 2025-04-25 12:09 | XMS_ITS ---
Author Organization [facility] Address [address] [place] [address] Care Team Providers Care Trapeze Performer Name Role Phone Erica Taras Primary Care Provider [phone] Active Problems Problem Noted Date Diagnosed Date [...] (04/21/2019): Added automatically from request for surgery [id number] PLATA (dyspnea on exertion) 04/21/2019 Overview (04/22/2019): Added automatically from request for surgery [id number] Positive cardiac stress test 04/21/2019 05/31/2019 Overview (04/22/2019): Added automatically from request for surgery [id number]
== END 2025-04-25 10:49 | disposition home or self-care (01) ==
LOC: HO.LNP 10:48
PROVIDERS: Visit Provider Internal Medicine
DX: G31.84 Mild cognitive impairment of uncertain or unknown etiology (principal)
CPT/HCPCS: 82607; 82746

== ENCOUNTER → 2025-05-31 07:30 | Outpatient (REF) | payer MEDICARE, OTHER, SELFPAY ==
--- OUTSIDE RECORDS SUMMARY | 2025-04-25 05:00 | XMS_ITS ---
Author Organization Taras Maldonado MD Address [address] [place], [place] [phone] Care Team Providers Care Commodity Specialist Name Role Phone Taras Maldonado Primary Care Provider Allergies No Known Allergies Results Component Value Reference Range Notes Vitamin B12 and Folate Reviewed date:04/25/2025 12:35:01 PM Interpretation: Performing Lab:[facility], [address] [place] [phone] Notes/Report: Vitamin B12 387 200-900 pg/mL NORMAL 200-900 PG/ML INDETERMINATE 160-199 PG/ML DEFICIENT < 160 PG/ML Folate 10.5 > or = 4.0 ng/mL Reference Values: > or = 4.0 ng/mL < 4.0 ng/mL suggests folate deficiency Methotrexate, aminopterin and folinic acid (leucovorin) are chemotherapeutic agents whose molecular structures are similar to folate; therefore, the Assembly Leader folate assay cannot be used for patients [...] kg/m2 04/25/2025 weight is down 8 pounds [facility] e 10-13-24 Encounters Encounter Location Date Provider Diagnosis Taras Maldonado MD [address] [place] [address] [address] [place], [place] [phone] 04/25/2025 Taras Maldonado MCI (mild cognitive impairment) G31.84 ; High triglycerides E78.1 and 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 needs to get back on statins Plan Of Treatment Treatment Notes Assessment Notes MCI (mild cognitive impairment) is getti ng worse, pending abs, will continue to monitor High triglycerides had been better on s tatin Coronary artery disease of n ative artery of [place] heart with stable angina pectoris not taking his statin. needs to get back on statins Next Appt Details Follow Up: 3 Months, Reason: Provider Name:Taras Baldwin ier, 08/03/2025 10:30:00 AM, [address], [address], [place], [place], [phone], Provider Name:Taras Baldwin ier, 10/09/2025 08:15:00 AM, [address], [address], [place], [place], [phone], Provider Name:Taras Baldwin ier, 10/16/2025 01:00:00 PM, [address], [address], [place], [place], [id number], Progress Notes * SHAHIDAErikDOB: [birth year] (75 yo M)Acc No.[id number]:04/25/2025 Progress Notes Patient: Erik GUEVARA Lore Provider: Destiney Maldonado MD :1950 A ge:75 Y S ex:Male Date:04/25/2025 Address:[address] [place], [place] [phone] Subjective: * Chief Complaints: * 6 MO [...] 3 . C oronary artery disease of [place] artery of [place] heart with stable angina pectoris - I25.118 Plan: * Treatment: 2. H igh triglycerides Notes: had been better on statin 3. C oronary artery disease of [place] artery of [place] heart with stable angina pectoris Notes: not taking his statin. needs to get back on statins * Procedure Codes: G 2211 Complex e/m visit add on * Follow Up: 3 Months * * Sign off status: Completed true * Provider: Destiney Maldonado MD Date: 0 04/25/2025 Generated for Michael vázquez/Raymond/Leoniditting on: 05/31/2025 07:32 AM EDT History and Physical Notes * HPI (History of Present Illness) Category Sub-Category Detail Notes Category Not es Symptom(s) patient is a 75 yo male here for 6 month follow up visit/ has gotten a lot more confused in last 4 weeks/ has no sense of time and days of the week
--- NOTE | 2025-05-31 07:33 | CA_ITS ---
Transthoracic Echocardiogram Patient (Last, First, Middle): Erik Rosales J Gender: M Date of : 1950 Age: 75 Procedure Date: 05/31/2025 Procedure Type: Transthoracic Echocardiogram Location: OP Height: 180.34 cm Weight: 83.92 kg BSA: 2.04 m2 Heart Rate: 62 bpm BP: 132 / 70 mmHg Wind Project Manager: ESTEFANI Referring MD: Adrián Sandoval MD Tennis Net Maker: Adrián Sandoval MD Symptoms: I25.10 CAD Study Quality: Adequate ECG Rhythm: Sinus Conclusions: - 1. Normal LV ejection fraction of 60 65% with impaired relaxation filling pattern 2. Calcific aortic valve changes noted with normal cardiac valvular Dopplers 3. Moderately loose severely reduced RV systolic function by TAPSE 4. Normal RV systolic pressure 5. No gross pericardial effusion Findings Left Ventricle Normal left ventricular size, thickness, and systolic function. The visually estimated ejection fraction is between 60-65%. There is paradoxical septal motion consistent with post-operative status. Spectral Doppler is indicative of an impaired relaxation filling pattern. E/E prime ratio is between 8 and 15 consistent with indeterminate filling pressures. Wall Motion Rest Echo Findings The basal inferior segment is hypokinetic. All other scored wall segments showed normal motion. Right Ventricle Normal right ventricular cavity size. There is moderate to severely decreased right ventricular systolic function. Atria Both atria are normal in size. There is no evidence of interatrial shunt. Aortic Valve There is mild calcification of the aortic valve. There is moderate thickening of the aortic valve. There is no aortic valve stenosis. There is no aortic valve regurgitation. Mitral Valve There is mild anterior mitral leaflet thickening. There is trace mitral valve regurgitation. There is no mitral valve stenosis. Pulmonic Valve The pulmonic valve is likely normal. There is mild pulmonic valve regurgitation. Tricuspid Valve Normal tricuspid valve structure. There is trace tricuspid valve regurgitation. The right ventricular systolic pressure is normal. The right ventricular systolic pressure is 25 mmHg. Normal right atrial pressure. There is no evidence of pulmonary hypertension. Great Vessels The aorta was not well visualized. The pulmonary artery was not well visualized. Venous The inferior vena cava is normal in size and collapses greater than 50% with inspiration. Pericardium/Pleural There is no evidence of pericardial effusion. Prior Study Comparison Changes noted compared to prior study dated: 12/22/2022. LV function has marginally improved Measurements 2D Linear Measurements IVSd: 0.78 0.6-0.9/0.6-1.0 cm LVIDd: 4.66 3.9-5.3/4.2-5.9 cm LVIDd Index: 2.28 2.4-3.2/2.2-3.1 cm/m2 LVIDs: 2.87 2.0-3.6 cm LVPWd: 0.53 0.7-1.1 cm LA Diam: 4.40 2.7-3.8/3.0-4.0 cm LAIDs Index: 2.16 1.5-2.3 cm/m2 LV Mass: 115.93 67-162/88-224 g LV Mass Index: 56.83 43-95/49-115 g/m2 LVOT Diam: 2.20 3.0+(-)1.3 cm 2D Systolic Function EF 4C: 52.40 >55% EF 2C: 67.30 >55% EF BiP: 60.10 >55% Mitral Valve MV Pk E: 0.71 MV PK A: 0.66 MV Decel Time: 217.00 E/A: 1.10 E'Lateral: 9.14 E'Medial: 5.55 E/E' Med: 12.70 E/E' Lat: 7.70 PHT: 64.00 MVA PHT: 3.44 Decel [place]: 3.25 Aortic Valve AoV Pk Sunny: 1.43 AoV Mn Sunny: 1.04 AoV VTI: 0.31 AoV Pk Grad: 8.00 Aov Mn Grad: 5.00 HUNTER Cont.VTI: 2.94 LVOT LVOT Pk Sunny: 1.20 LVOT Mn Sunny: 0.78 LVOT VTI: 0.24 LVOT Pk Grad: 6.00 LVOT Mn Grad: 3.00 LVOT Diam: 2.20 LVOT Area: 3.80 Diastolic Function MV Pk E: 0.71 MV Pk A: 0.66 E/A: 1.10 E'Medial: 5.55 E/E' Med: 12.70 E' Laterial: 9.14 E/E' Lat: 7.70 Right Ventricle TAPSE (mm): 10.00 TVS' Sunny: 6.00 Tricuspid Valve TR Pk Sunny: 2.33 TR Pk Grad: 22.00 RA Press: 3.00 RVSP: 25.00 Great Vessels Aorta Sinus of Valsalva: 3.50 2.0-3.5 cm Pulmonary Veins Pulm Vein S/D 1.30 Pulmonary Valve PV Pk Sunny: 1.11 Peak PV Grad: 5.00 VT Pk Sunny: 2.21 Updated in Other Vendor System with Status of Final Adrián Sandoval MD electronically signed on 05/31/2025 3:21:27 PM with status of Final
--- OUTSIDE RECORDS SUMMARY | 2025-05-31 07:33 | XMS_ITS | Patient Health Record ---
Author Organization [facility] Address [address] [place] [address] Care Team Providers Care Brusher Hand Name Role Phone Taras Maldonado MD Primary Care Provider Armando Ayers [phone] Allergies No Known Allergies Reason For Referral [...] Problem Status W/U Status Risk Notes Problem 497504875 Colon cancer screening (Z12.11) Active confirmed Problem Diverticulosis o f large intestine without perforation or abscess without bleeding (K57.30) Active confirmed Problem [id number] Aspirin long-ter m use (Z79.82) Active confirmed Plan Of Treatment Pending Test Test Name Order Date Pathology 07/27/2023 Future Test Test Name Order Date COLONOSCOPY 05/07/2023 Insurance Providers Payer Name Payer Address Payer Phone Subscriber Number Group Number Insured Name Patient Relationship to Insured Coverage Start Date Coverage End Date MEDICARE OF [place] [address] [place] [address] [id number] MICHAELMAU Self - patient is the insured [facility] INDEMNITY [address] [place] [address] [id number] MAU RODRIGUEZ Self - patient is the insured Medical (General) History Medical History History ICD Code CAD with CABG as below Denies [place],DM,CVA,Lung disease,renal dise ase Prostate cancer--surgery and then XRT Colonoscopy in 08/2017 was n egative at [facility]. He can't recall if he had other colonoscopies prior to that with removal of polyps. Hyperlipidemia HTN Surgical History Surgery Date(Month/Year) 3 V CABG Appendectomy Tonsillectomy Prostatectomy
--- OUTSIDE RECORDS SUMMARY | 2025-05-31 07:33 | XMS_ITS | Clinical Summary ---
Author Organization [facility] Address [address] [place] [address] Phone Care Team Providers Care Town Clerk Name Role Phone Taras Maldonado MD Primary Care Provider Allergies No known active allergies Medications aspirin 81 MG EC tablet ENTERIC COATED ASPIRIN (ASPIRIN ENTERIC COATED) [address]; Dose: 81 MG; Form: Take [address]; Route: PO; Frequency: QD; Directions: Not available; Details: Dispense: Tablet(s); Taking; Status: Active; Source: [place]; Date: 05/28/2012 2 Active lisinopril (PRINIVIL,ZESTR AK) 10 MG tablet LISINOPRIL 10 MG TABLET; Dose: 10 MG; Form: Take 1 TABLET; Route: PO; Frequency: QD; Directions: Not available; Details: Dispense: Tablet(s); Taking; Status: Active; Source: [place]; Date: 05/28/2012 2 Active omeprazole (PRILOSEC) 20 mg TbEC OMEPRAZOLE [address]; Dose: 20 MG; Form: Take [address]; Route: PO; Frequency: QD; Directions: Not available; Details: Dispense: Tablet(s); Taking; Status: Active; Source: [place]; Date: 05/28/2012 2 Active terbinafine HCl (LAMISIL) 250 mg tablet Take 250 mg by mouth daily. Active atorvastatin (LIPITOR) 20 MG tablet Take 20 mg by mouth daily. Active Active Problems Problem Noted Date Diagnosed Date Hyperlipidemia 04/17/2017 Malignant neoplasm of prostate 08/31/2015 Hypertensive disorder 05/28/2012 Overview (12/02/2014): Hypertensive disorder Social History Tobacco Use Types Packs/Day Years Used Date Smoking Tobacco: Never Education Answer Date Recorded Are you interested in more education? Not on mary beth e 02/07/2023 Are you concerned about learning? Not on file 02/07/2023 No 02/07/2023 No 02/07/2023 Digital Access Answer Date Recorded No 03/07/2023 No 03/07/2023 No 03/07/2023 Reliable internet access at home? Not on file 03/07/2023 Device with a working camera? Not on file Sex and Gender Information Value Date Recorded Sex Assigned at Not on file Legal Sex Male 5:53 PM EST Gender Identity Not on file Sexual Orientation Not on file Last Filed Vital Signs Vital Sign Reading Time Taken Comments Blood Pressure 129/64 11/15/2021 10:54 AM EST Pulse 54 11/15/2021 10:54 AM EST Temperature 36.5 C (97.7 F) 11/15/2021 10:54 AM EST Respiratory Rate 18 11/15/2021 10:5 4 AM EST Oxygen Saturation 98% 11/15/2021 10: 54 AM EST Inhaled Oxygen Concentration - - Weight 85.2 kg (187 lb 13.3 oz) 022 10:54 AM EST Height 179.9 cm (5' 10.83 ) 11/15/2021 10:54 AM EST Body Mass Index 26.33 11/15/2021 10:54 AM EST Plan of Treatment Health Maintenance Due Date Last Done Comments Adult Td,Tdap Booster 1950 BLOOD PRESSURE 1950 DEPRESSION SCREENING 1961 HEPATITIS C SCREENING 1967 CREATININE LEVEL 07/02/2019 07/02/2018, , 08/31/2015, Additional history exists POTASSIUM LEVEL 07/02/2019 07/02/2018, 03/12, 08/31/2015, Additional history exists RSV VACCINE (1 - 1-dose 75+ series) 2024 COVID-19 VACCINE (2023- season) 2024 08/09/2021, 01/03/2021, 12/06/2020 LIPID PANEL 08/28/2026 08/28/2021, 08/12, 08/30/2020, Additional history exists SMOKING STATUS SCREENING (Once After 26 Yrs) Completed 04/17/2017 ZOSTER VACCINES Completed 02/08/2019, 03/2018, 10/06/2011 PNEUMOCOCCAL VACCINES (50+ years) Completed 04/30/2020, 01/27/2017, 04/11/2014 HEPATITIS A VACCINES Aged Out No long er eligible based on patient's age to complete this topic HIB VACCINES Aged Out No longer eligi ble based on patient's age to complete this topic MENINGOCOCCAL VACCINES (ACWY) Aged Out No longer eligible based on patient's age to complete this topic MENINGOCOCCAL VACCINES (B) Aged Out N o longer eligible based on patient's age to complete this topic Medical Devices Not on file Procedures Procedure Name Priority Date/Time Associated Diagnosis Comments COMPREHENSIVE METABOLIC PANEL Routine 07/02/2018 11:19 AM EDT Malignant neoplasm of prostate from Last 3 Months or Most Recently Relevant to Health Maintenance Results * (ABNORMAL) Comprehensive metabolic panel (07/02/2018 11:19 AM EDT) Glucose Level 98 70 - 106 mg/dL [facility] Blood Urea Nitrogen 20 9 - 23 mg/dL [facility] Calcium Level 9.6 8.5 - 10.1 mg/dL [facility] Creatinine 1.11 0.55 - 1.30 mg/dL [facility] Estimat Glomerular Filtration Rate 67 >60 [facility] Comment: Units - ml/min/1.73 msq For population multiply the GFR result by 1.159 for actual result. Serum Creatinine and GFR Estimation traceable to IDMS. The new CKD EPI calculation implemented on 01/18/18. Albumin 4.2 3.4 - 5.0 g/dL [facility] Total Protein 7.7 6.4 - 8.2 g/dL [facility] Alkaline Phosphatase 70 46 - 136 U/L [facility] Aspartate Amino Transf (AST/SGOT) 25 15 - 37 U/L [facility] Alanine Aminotransferase (ALT/SGPT) 38 12 - 78 U/L [facility] Total Bilirubin 2.5(Abnor almas H) 0.2 - 1.0 mg/dL [facility] Sodium Level 139 136 - 145 mmol/L [facility] Potassium Level 3.8 3.5 - 5.1 mmol/L [facility] Chloride Level 102 98 - 107 mmol/L [facility] Carbon Dioxide Level 29.0 21 - 32 mmol/L [facility] Anion Gap 8 3 - 11 mmol/L [facility] 07/02/2018 11:1 9 AM EDT 07/02/2018 11:19 AM EDT Narrative [facility] - 07/02/2018 12:06 PM EDT Testing performed through [place] [id number], Delmi Costa MD, Laboratory Double End Tenoner Setter Resulting Agency Comment [facility] us Gabby Cartagena PA-C LAB BLOOD [place] [address], [facility] from Last 3 Months or Most Recently Relevant to Health Maintenance Insurance MEDICARE PART A & B [employer] MEDICARE SUPPLEMENT MEDICARE PART A & B [facility] MEDICARE SUPPLEMENT MEDICARE PART A & B Member Subscriber Plan / Payer ( fective 2014-Present) Name:Erik Rosales Member ID:[id number] Relation to Subscriber:Self Name:Erik Rosales Subscriber ID:[id number] Payer ID:[id number] Group ID:Not on file Type:Medicare Address: [employer] [address] [place] [phone] [facility] EXTENSION MEDICARE SUPPLEMENT MEDICARE PART A & B [facility] MEDICARE SUPPLEMENT MEDICARE PART A & B Member Subscriber Plan / Payer ( fective 2014-Present) Name:Erik Rosales Member ID:[id number] Relation to Subscriber:Self Name:Erik Rosales Subscriber ID:[id number] Payer ID:[id number] Group ID:Not on file Type:Medicare Address: [employer] [address] EXTENSION MEDICARE SUPPLEMENT MEDICARE PART A & B [facility] EXTENSION MEDICARE SUPPLEMENT MEDICARE PART A & B [employer] MEDICARE SUPPLEMENT MEDICARE PART A & B [employer] MEDICARE SUPPLEMENT MEDICARE PART A & B [facility] [employer] MEDICARE SUPPLEMENT Care Teams Town Clerk Relationship Specialty Start Date End Date Taras Maldonado MD [address] [place] [address] [place] [address] PCP - General 02/16/15 Additional Source Comments The information contained in this document represents components of the legal health record. It is not the complete legal health record.[facility]
--- OUTSIDE RECORDS SUMMARY | 2025-05-31 07:33 | XMS_ITS ---
Author Organization [facility] Address [address] [place] [address] Care Team Providers Care Regional Sales Coordinator Name Role Phone Erica Taras Primary Care Provider [phone] Active Problems Problem Noted Date Diagnosed Date [...] (04/21/2019): Added automatically from request for surgery [id number] PLATA (dyspnea on exertion) 04/21/2019 Overview (04/22/2019): Added automatically from request for surgery [id number] Positive cardiac stress test 04/21/2019 05/31/2019 Overview (04/22/2019): Added automatically from request for surgery [id number]
== END ==
LOC: HO.CARD 07:30
PROVIDERS: PCP Internal Medicine; Visit Provider Internal Medicine Cardiovascular Disease
DX: I25.10 Atherosclerotic heart disease of native coronary artery without angina pectoris (principal)
CPT/HCPCS: 93306

== ENCOUNTER → 2025-05-31 07:33 | Outpatient (BNV) | payer MEDICARE, OTHER, SELFPAY | PROVIDERS: PCP Internal Medicine; Visit Provider Internal Medicine Cardiovascular Disease | DX: I35.8 Other nonrheumatic aortic valve disorders (principal); I34.89 Other nonrheumatic mitral valve disorders | CPT/HCPCS: 93306 ==

== ENCOUNTER 2025-06-08 09:58 | Outpatient (AMB) | payer MEDICARE, OTHER, SELFPAY ==
--- OUTSIDE RECORDS SUMMARY | 2024-11-15 04:30 | XMS_ITS ---
Author Organization Taras Maldonado MD Address [address] [place] [phone] Care Team Providers Care Testing Manager Name Role Phone Taras Maldonado Primary Care Provider REASON FOR VISIT U/A Hematuria Encounters Encounter Location Date Provider Diagnosis Taras Maldonado MD [address] [place] [address] [phone] 11/15/2024 Taras Maldonado Hematuria R31.9 Assessments Encounter Date Diagnosis (ICD Code) Assessment Notes Treatment Notes Treatment Clinical Notes Section Notes 11/15/2024 Hematuria (ICD-10 - R31.9) Plan Of Treatment Next Appt Details Provider Name:Taras suresh, 08/03/2025 10:30:00 AM, [address] [place] [address], [phone], Provider Name:Taras suresh, 10/09/2025 08:15:00 AM, [address] [place] [address], [phone], Provider Name:Taras suresh, 10/16/2025 01:00:00 PM, [address] [place] [address], [phone], Progress Notes * Gómez ROSALESDOB: (75 yo M)Acc No.[id number]:11/15/2024 Progress Note Patient: Meli Gómez GOMEZ Provider: Destiney Maldonado MD :1950 A ge:74 Y S ex:Male Date:11/15/2024 Address:[address] [place] [phone] Subjective: * Chief Complaints: * 1 . [...] 11/15/2024 Generated for Michael vázquez/Raymond/Leoniditting on: 0 06/08/2025 11:09 AM EDT
--- OUTSIDE RECORDS SUMMARY | 2025-04-11 07:00 | XMS_ITS ---
Author Organization Taras Maldonado MD Address [address] [place], [place] [phone] Care Team Providers Care Can Reconditioner Name Role Phone Taras Maldonado Primary Care Provider Results Component Value Reference Range Notes Liver Panel Reviewed date:04/11/2025 04:33:59 PM Interpretation: Performing Lab:[facility], [address] [place] [phone] Notes/Report: Bilirubin Total 1.6 0.0-1.0 mg/dL Slight Icte que. Bilirubin Direct 0.3 0.0-0.5 mg/dL Slight Ict erus. Aspartate Amino Transferase 33 5-37 U/L Alanine Aminotransferase 19 0-40 U/L Total Protein 7.3 6.5-8.0 g/dL Albumin Level 4.8 3.5-5.0 g/dL Alkaline Phosphatase 71 39-117 U/L Lipid Panel with Reflex Reviewed date:04/11/2025 04:41:17 PM Interpretation: Performing Lab:[facility], [address] [place] [phone] Notes/Report: Triglycerides 302 <150 mg/dL Desirable Triglyceride: [...] Location Date Provider Diagnosis Taras Maldonado MD [address] [place] [phone] 04/11/2025 Taras Maldonado Pure hypercholestero lemia E78.00 Assessments Encounter Date Diagnosis (ICD Code) Assessment Notes Treatment Notes Treatment Clinical Notes Section Notes 04/11/2025 Pure hypercholesterolemia (ICD-10 - E78.00) Plan Of Treatment Next Appt Details Provider Name:Taras suresh, 08/03/2025 10:30:00 AM, [address] [place] [address], [address], [phone], Provider Name:Taras suresh, 10/09/2025 08:15:00 AM, [address] [place] [address], [address], [phone], Provider Name:Taras suresh, 10/16/2025 01:00:00 PM, [address] [place] [address], [address], [phone], Progress Notes * Erik ROSALESDOB: [birth year] (75 yo M)Acc No.[id number]:04/11/2025 Progress Note Patient: Erik GUEVARA Provider: Destiney Maldonado MD :1950 A ge:75 Y S ex:Male Date:04/11/2025 Address:[address] [place] [phone] Subjective: * Chief Complaints: * 1 . [...] MD Date: 0 04/11/2025 Generated for Michael vázquez/Raymond/Tarik on: 0 06/08/2025 11:09 AM EDT
--- OUTSIDE RECORDS SUMMARY | 2025-04-25 05:00 | XMS_ITS ---
Author Organization Taras Maldonado MD Address [address] [employer] [place], [place] [phone] Care Team Providers Care Product Applications Scientist Name Role Phone Taras Maldonado Primary Care Provider Allergies No Known Allergies Results Component Value Reference Range Notes Vitamin B12 and Folate Reviewed date:04/25/2025 12:35:01 PM Interpretation: Performing Lab:[facility], [address] [place] [phone] Notes/Report: Vitamin B12 387 200-900 pg/mL NORMAL 200-900 PG/ML INDETERMINATE 160-199 PG/ML DEFICIENT < 160 PG/ML Folate 10.5 > or = 4.0 ng/mL Reference Values: > or = 4.0 ng/mL < 4.0 ng/mL suggests folate deficiency Methotrexate, aminopterin and folinic acid (leucovorin) are chemotherapeutic agents whose molecular structures are similar to folate; therefore, the Marketing Researcher folate assay cannot be used for patients using these drugs. REASON FOR VISIT 6 MO F/U, The doctor daughter would like B12 and Folate checked, feels he is much worse within the past 4 weeks ? other labs, Accompanied by Medications Medication SIG (Take, Route, Frequency, Duration) Notes Start Date End Date Status Ciclopirox Olamine 0.77 % 1 application to affected area Externally Twice a day Not-Takin g Tetracycline HCl 250 MG 1 capsule Orally once a day Not-Taking Vytorin 10-20 MG TAKE 1 TABLET BY KETAN TH EVERY DAY Not-Taking Ciclopirox 0.77 % 1 application to affected area Externally Twice a day Not-Takin g Ibuprofen 800 MG 1 tablet Orally Thre e times a day for 30 day(s) 02/06/2015 Not-Taking Acetaminophen 325 MG 1 tablet as needed Orally every 4 hrs Not-Taking Nitrostat 0.4 MG as directed Sublingu al every 5 minutes times 3 for chest pain for 10 days 04/26/2019 Not-Taking amLODIPine Besylate 10 MG 1 tablet Orall y Once a day for 90 days 10/13/2024 Active Aspirin 81 MG 2tablet Orally Once a day Active Vitamin D 25 MCG (1000 UT) 1 tablet Orally Once a day Active Calcium Carbonate 600 MG as directed Orally Active Problems Problem Type SNOMED Code ICD Code Onset Dates Problem Status W/U Status Risk Notes Problem MCI (mild cognitive impairment) (G31.84) Active confirmed Vital Signs Blood pressure systolic 132 mm Hg 04/25/20 25 Blood pressure diastolic 60 mm Hg 025 Height 70.25 in 04/25/2025 Weight 185 lbs 04/25/2025 BMI 26.35 kg/m2 04/25/2025 weight is down 8 pounds [facility] 10[facility]24 Encounters Encounter Location Date Provider Diagnosis Taras Maldonado MD [address] [place] [address] [address] [employer], [place] [phone] 04/25/2025 Taras Maldonado MCI (mild cognitive impairment) G31.84 ; High triglycerides E78.1 and 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 needs to get back on statins Plan Of Treatment Treatment Notes Assessment Notes MCI (mild cognitive impairment) is getti ng worse, pending abs, will continue to monitor High triglycerides had been better on s tatin Coronary artery disease of n ative artery of [place] heart with stable angina pectoris not taking his statin. needs to get back on statins Next Appt Details Follow Up: 3 Months, Reason: Provider Name:Taras Baldwin ier, 08/03/2025 10:30:00 AM, [address], [address], [employer] [place], [place], [phone], Provider Name:Taras Baldwin ier, 10/09/2025 08:15:00 AM, [address], [address], [employer], [place], [phone], Provider Name:Taras Baldwin ier, 10/16/2025 01:00:00 PM, [address], [address], [employer] [place] [employer], [place], [phone], Progress Notes * SHAHIDAErikDOB: [birth year] (75 yo M)Acc No.[id number]:04/25/2025 Progress Notes Patient: Erik GUEVARA Lore Provider: Destiney Maldonado MD :1950 A ge:75 Y S ex:Male Date:04/25/2025 Address:[address] [place], [place] [phone] Subjective: * Chief Complaints: * 6 MO F/UThe doctor daughter would like B12 and Folate checkedFeels he is much worse within the past 4 weeks ? other labsAccompanied by * HPI: S ymptom(s): patient is a 75 yo male here for 6 month follow up visit/ has gotten a lot more confused in last 4 weeks/ has no sense of time and days of the week. * ROS: G eneral/Constitutional: Denies C hills. D enies F atigue. D enies F ever. D enies H eadache. E NT: Denies S ore throat. R espiratory: Denies C ough. D enies S hortness of breath at rest. D enies S hortness of breath with exertion. C ardiovascular: Patient denies c hest pain with exertion, chest pain at rest. G astrointestinal: Denies D iarrhea. D enies N ausea. * Medical History: * Surgical History: * Hospitalization/Major Diagno stic Procedure: * Medications: T akingVitamin D 25 MCG (1000 UT) Tablet 1 tablet Orally Once a day Aspirin 81 MG Tablet Delayed Release 2tablet Orally Once a day Calcium Carbonate 600 MG Tablet as directed Orally amLODIPine Besylate 10 MG Tablet 1 tablet Orally Once a day Taking Vitamin D 25 MCG (1000 UT) Tablet 1 tablet Orally Once a day Taking Aspirin 81 MG Tablet Delayed Release 2tablet Orally Once a day Taking Calcium Carbonate 600 MG Tablet as directed Orally Taking amLODIPine Besylate 10 MG Tablet 1 tablet Orally Once a day Not-Taking/PRNNitrostat 0.4 MG Tablet Sublingual as directed Sublingual every 5 minutes times 3 for chest pain Acetaminophen 325 MG Tablet 1 tablet as needed Orally every 4 hrs Ciclopirox 0.77 % Gel 1 application to affected area Externally Twice a day Vytorin 10-20 MG Tablet TAKE 1 TABLET BY MOUTH EVERY DAY Tetracycline HCl 250 MG Capsule 1 capsule Orally once a day Ciclopirox Olamine 0.77 % Cream 1 application to affected area Externally Twice a day Ibuprofen 800 MG Tablet 1 tablet Orally Three times a day Not-Taking/PRN Nitrostat 0.4 MG Tablet Sublingual as directed Sublingual every 5 minutes times 3 for chest pain Not-Taking/PRN Acetaminophen 325 MG Tablet 1 tablet as needed Orally every 4 hrs Not-Taking/PRN Ciclopirox 0.77 % Gel 1 application to affected area Externally Twice a day Not-Taking/PRN Vytorin 10-20 MG Tablet TAKE 1 TABLET BY MOUTH EVERY DAY Not-Taking/PRN Tetracycline HCl 250 MG Capsule 1 capsule Orally once a day Not-Taking/PRN Ciclopirox Olamine 0.77 % Cream 1 application to affected area Externally Twice a day Not-Taking/PRN Ibuprofen 800 MG Tablet 1 tablet Orally Three times a day DiscontinuedamLODIPine Besylate 5 MG Tablet 1.5 tablet Orally Once a day Omeprazole 20 MG Capsule Delayed Release take one capsule by mouth every day Orally Once a day Rosuvastatin Calcium 40 MG Tablet 1 tablet Orally Once a day Medication List reviewed and reconciled with the patientDiscontinued amLODIPine Besylate 5 MG Tablet 1.5 tablet Orally Once a day Discontinued Omeprazole 20 MG Capsule Delayed Release take one capsule by mouth every day Orally Once a day Discontinued Rosuvastatin Calcium 40 MG Tablet 1 tablet Orally Once a day Medication List reviewed and reconciled with the patient * Allergies: N .K.D.A.yes[Allergies Verified] Objective: * Vitals: H t: 70.25, Wt: 185, BMI:26.35, BP:132/60, Wt-k.92. weight is down 8 pounds since 10-13-24. * P ast Orders: L ab:Liver Panel (Order Date - 04/11/2025) (Collection Date & Time - 04/11/2025 07:15 AM) Value Reference Range Bilirubin Total 1.6 H 0.0-1.0 - mg/dL Bilirubin Direct 0.3 0.0-0.5 - mg/dL Aspartate Amino Transferase 33 5-37 - U/L Alanine Aminotransferase 19 0-40 - U/L Total Protein 7.3 6.5-8.0 - g/dL Albumin Level 4.8 3.5-5.0 - g/dL Alkaline Phosphatase 71 39-117 - U/L L ab:Lipid Panel with Reflex (Order Date - 04/11/2025) (Collection Date & Time - 04/11/2025 07:15 AM) Value Reference Range Triglycerides 302 H <150 - mg/dL Cholesterol 173 <200 - mg/dL LDL Cholesterol Calculated 83 <100 - mg/dL HDL Cholesterol 30 L >40 - mg/dL Assessment: * Assessment: 1. M CI (mild cognitive impairment) - G31.84 (Primary) 2 . H igh triglycerides - E78.1 3 . C oronary artery disease of [place] artery of [place] heart with stable angina pectoris - I25.118 Plan: * Treatment: 2. H igh triglycerides Notes: had been better on statin 3. C oronary artery disease of [place] artery of [place] heart with stable angina pectoris Notes: not taking his statin. needs to get back on statins * Procedure Codes: G 2211 Complex e/m visit add on * Follow Up: 3 Months * * Sign off status: Completed true * Provider: Destiney Maldonado MD Date: 0 04/25/2025 Generated for Michael vázquez/Raymond/Leoniditting on: 0 06/08/2025 11:09 AM EDT History and Physical Notes * HPI (History of Present Illness) Category Sub-Category Detail Notes Category Not es Symptom(s) patient is a 75 yo male here for 6 month follow up visit/ has gotten a lot more confused in last 4 weeks/ has no sense of time and days of the week
--- NOTE | 2025-06-08 10:26 | A.OFFVIS_ITS ---
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 He has had no active cardiac symptoms. He said he does his usual activity and denies any symptoms of chest pain or shortness of breath. Was not taking his rosuvastatin as prescribed in his LDL and had increased and this explains his inconsistent taking rosuvastatin. His blood pressures remained controlled. Denies any orthopnea, PND, leg edema. Most recent echocardiogram shows normal LV ejection fraction but with reduced RV systolic function as noted by [facility] but this is most likely related to his open-heart surgery and tethering of the RV free wall PFSH Medical History HLD (hyperlipidemia) Prostate cancer HTN (hypertension) CAD (coronary artery disease) Surgical History H/O colonoscopy Hx of tonsillectomy H/O prostatectomy Hx of appendectomy S/P CABG x 3 Family History Father No problems noted. Mother No problems noted. Social History Patient Tobacco Use Status: Never used Tobacco Review of Systems Const Denies chills, Denies fatigue, Denies fever(s), Denies frequent falls, Denies weakness, Denies weight gain and Denies weight loss ENT Denies dizziness Card Denies chest pain, Denies leg edema, Denies lightheadedness, Denies palpitations, Denies dyspnea, Denies dyspnea on exertion, Denies orthopnea and Denies other (loss of consciousness) Resp Denies cough, Denies dyspnea and Denies dyspnea on exertion GI Denies hematochezia and Denies change in stool character Musc Denies abnormal gait, Denies muscle weakness, Denies numbness, Denies radiating pain into limb and Denies tingling Neuro Denies Abnormal speech present, Denies abnormal gait, Denies dizziness, Denies frequent falls, Denies numbness, Denies tingling and Denies weakness Endo Denies fatigue and Denies palpitations Physical Exam Vital Signs: Last Vital Signs Pulse 66 06/08/25 10:29 BP 142/72 H 06/08/25 10:29 BMI result Body Mass Index 24.8 Const General: cooperative, comfortable, no acute distress, well developed, alert and awake Nutritional Appearance: average body habitus and well nourished Orientation/consciousness: patient oriented x3 Neck Neck: Yes trachea midline, Yes supple and Yes no JVD Chest Chest palpation & inspection: other (Well-healed sternotomy scar) Resp Effort & Inspection: normal respiratory effort Auscultation: clear to auscultation bilaterally Cardio Jugular venous distension: no JVD Palpation: normal PMI Rate: regular rate Rhythm: regular rhythm Heart sounds: S1 normal heart sound present, S2 normal heart sound present, no click, no gallops, no murmurs and no rubs GI Auscultation: normal bowel sounds Skin General skin exam: no rashes or lesions noted Neuro General: patient oriented x3 and no focal motor deficits Speech: No Abnormal speech present Extrem General: Yes no clubbing, cyanosis or edema Office Procedures EKG Details: EKG shows normal sinus rhythm with normal EKG 48324-[id number], Complete Assessment & Plan Assessment & Plan (1) CAD (coronary artery disease): Code(s): I25.10 - Atherosclerotic heart disease of pauma coronary artery without angina pectoris Category: Medical Plan: CAD, stable with no recurrent symptoms. Currently doing well and does not require further surgery. He has reported RV systolic dysfunction as related to his open heart surgery causing RV tethering rather than RV systolic dysfunction. No signs or symptoms of heart failure. Importance of medical therapy was discussed. Importance of regular taking his statins was discussed and role of statins was discussed. Follow-up lipid panel in 2 months time. Continue aggressive blood pressure control. Encouraged to maintain activity level as tolerated. (2) HTN (hypertension): Code(s): I10 - Essential (primary) hypertension Category: Medical Plan: Hypertension which is currently well optimized on amlodipine therapy. Has done well with the same. Continue aggressive blood pressure control. Continue current therapy. Importance of low-salt diet was discussed. Importance of activity level was discussed. Advised to monitor blood pressure intermittently at home and maintain a log. Goal blood pressure less than 130/84. Will follow up in the clinic in 1 year's time, sooner p.r.n.. Thank you for allowing me to partake in his care Orders: Orders Lipid Panel 2 Months I25.10 - Atherosclerotic heart disease of pauma coronary artery without angina pectoris Medications: Changed From amlodipine 7.5 mg (1.5 x 5 mg) PO DAILY 150 tabs 3RF To amlodipine 10 mg PO DAILY Coding Level of Care Code Est Pt Level 4 (49739) Complex EM visit Add On G2211 Diagnoses CAD (coronary artery disease) I25.10 HTN (hypertension) I10 CPT Codes EKG - CPT: 21092-Afuekcijbaiaazxoy, Complete ([id number])
[2025-06-08 10:29] VITALS: BP 142/72; PULSE 66; BMI 24.8
--- OUTSIDE RECORDS SUMMARY | 2025-06-08 11:10 | XMS_ITS ---
Author Organization [facility] Address [address] [place] [address] Care Team Providers Care Finish Off Operator Name Role Phone Erica Taras Primary Care Provider [phone] Active Problems Problem Noted Date Diagnosed Date [...] (04/21/2019): Added automatically from request for surgery [id number] PLATA (dyspnea on exertion) 04/21/2019 Overview (04/22/2019): Added automatically from request for surgery [id number] Positive cardiac stress test 04/21/2019 05/31/2019 Overview (04/22/2019): Added automatically from request for surgery [id number]
--- OUTSIDE RECORDS SUMMARY | 2025-06-08 11:10 | XMS_ITS | Clinical Summary ---
Author Organization [facility] Address [address] [place] [id number] Phone Care Team Providers Care Paper Cutter Operator Name Role Phone Taras Maldonado MD Primary Care Provider Allergies No known active allergies Medications aspirin 81 MG EC tablet ENTERIC COATED ASPIRIN (ASPIRIN ENTERIC COATED) [address]; Dose: 81 MG; Form: Take [address]; Route: PO; Frequency: QD; Directions: Not available; Details: Dispense: Tablet(s); Taking; Status: Active; Source: [place]; Date: 05/28/2012 2 Active lisinopril (PRINIVIL,ZESTR KS) 10 MG tablet LISINOPRIL 10 MG TABLET; [...] Glucose Level 98 70 - 106 mg/dL [facility] Blood Urea Nitrogen 20 9 - 23 mg/dL [facility] Calcium Level 9.6 8.5 - 10.1 mg/dL [facility] Creatinine 1.11 0.55 - 1.30 mg/dL [facility] Estimat Glomerular Filtration Rate 67 >60 [facility] Comment: Units - ml/min/1.73 msq For population multiply the GFR result by 1.159 for actual result. Serum Creatinine and GFR Estimation traceable to IDMS. The new CKD EPI calculation implemented on 01/18/18. Albumin 4.2 3.4 - 5.0 g/dL [facility] Total Protein 7.7 6.4 - 8.2 g/dL [facility] Alkaline Phosphatase 70 46 - 136 U/L [facility] Aspartate Amino Transf (AST/SGOT) 25 15 - 37 U/L [facility] Alanine Aminotransferase (ALT/SGPT) 38 12 - 78 U/L [facility] Total Bilirubin 2.5(Abnor almas H) 0.2 - 1.0 mg/dL [facility] Sodium Level 139 136 - 145 mmol/L [facility] Potassium Level 3.8 3.5 - 5.1 mmol/L [facility] Chloride Level 102 98 - 107 mmol/L [facility] Carbon Dioxide Level 29.0 21 - 32 mmol/L [facility] Anion Gap 8 3 - 11 mmol/L [facility] 07/02/2018 11:1 9 AM EDT 07/02/2018 11:19 AM EDT Narrative [facility] - 07/02/2018 12:06 PM EDT Testing performed through [place] [id number], Delmi Costa MD, Laboratory Program Manufacturing Leader Resulting Agency Comment [facility]FC[facility] us Gabby Cartagena PA-C LAB BLOOD [place] [address], [facility] from Last 3 Months or Most Recently Relevant to Health Maintenance Insurance MEDICARE PART A & B [employer] MEDICARE SUPPLEMENT MEDICARE PART A & B [facility] MEDICARE SUPPLEMENT MEDICARE PART A & B Member Subscriber Plan / Payer ( fective 2014-Present) Name:Erik Rosales Member ID:[id number] Relation to Subscriber:Self Name:Erik Rosales Subscriber ID:[id number] Payer ID:[id number] Group ID:Not on file Type:Medicare Address: [employer] [address] [place] [phone] [facility] [employer] MEDICARE SUPPLEMENT MEDICARE PART A & B [facility] MEDICARE SUPPLEMENT MEDICARE PART A & B Member Subscriber Plan / Payer ( fective 2014-Present) Name:Erik Rosales Member ID:[id number] Relation to Subscriber:Self Name:Erik Rosales Subscriber ID:[id number] Payer ID:[id number] Group ID:Not on file Type:Medicare Address: [employer] [address] EXTENSION MEDICARE SUPPLEMENT MEDICARE PART A & B [facility] [employer] MEDICARE SUPPLEMENT MEDICARE PART A & B [employer] MEDICARE SUPPLEMENT MEDICARE PART A & B [employer] MEDICARE SUPPLEMENT MEDICARE PART A & B [facility] [employer] MEDICARE SUPPLEMENT Care Teams Paper Cutter Operator Relationship Specialty Start Date End Date Taras Maldonado MD [address] [place] [address] [place] [address] PCP - General 02/16/15 Additional Source Comments The information contained in this document represents components of the legal health record. It is not the complete legal health record.[facility]
--- OUTSIDE RECORDS SUMMARY | 2025-06-08 11:10 | XMS_ITS | Clinical Summary ---
Author Organization [facility] Address [address] [place] [address] Care Team Providers Care Climatology Professor Name Role Phone Taras Maldonado Primary Care Provider [phone] Allergies Active Allergy Reactions Criticality Noted Date [...] mg EC tabletIndications:C oronary artery disease involving creek coronary artery of creek heart without angina pectoris TAKE 2 TABLETS [...] (04/21/2019): Added automatically from request for surgery [id number] PLATA (dyspnea on exertion) 04/21/2019 Overview (04/22/2019): Added automatically from request for surgery [id number] Positive cardiac stress test 04/21/2019 05/31/2019 Overview (04/22/2019): Added automatically from request for surgery [id number] Family History Medical History Relation Name Comments [...] 65 08/07/2022 7:49 AM EDT Temperature 36.8 C (98.2 F) 07/08/2022 8:17 AM EDT Respiratory Rate 20 07/08/2022 8:17 AM EDT Oxygen Saturation 98% 07/08/2022 8:17 AM EDT Inhaled Oxygen Concentration - - Weight 85.8 kg (189 lb 3.2 oz) 07/08/2022 8:17 A M EDT Height 182.9 cm (6') 07/08/2022 8:17 AM EDT Body Mass Index 25.66 07/08/2022 8:17 AM EDT Plan of Treatment Health Maintenance Due Date Last Done Comments Hepatitis C Screening 1950 Medicare AWV 1951 Basic Metabolic Panel 08/28/2022 08/28/2021 , 08/30/2020, 08/25/2019, Additional history exists RSV Vaccine (60+ years old and patients) (1 - 1-dose 75+ series) 2024 COVID-19 Vaccine (2023- season) 2024 08/17/2023, 08/17/2023, 07/11/2022, Additional history exists Alcohol/Substance Use Screening 10/12/2024 Depression Screening and Follow-Up 10/12/2024 Health Care Proxy Review 10/12/2024 Social Drivers of Health Annual Screening 10/12/2024 DTaP,Tdap,and Td Vaccines (2 - Tdap) 04/23/2025 04/23/2015 Influenza Vaccine (#1) 2025 3, 06/13/2022, 06/24/2021, Additional history exists Zoster Vaccines Completed 02/08/2019, 03/2018, 10/06/2011 Pneumococcal Vaccine: 50+ Years Completed 04/30/2020, 01/27/2017, 04/11/2014 Hepatitis B Vaccines Aged Out No long er eligible based on patient's age to complete this topic Procedures * Due to [place] law, this organization might not be sharing negative HIV tests. Procedure Name Priority Date/Time Associated Diagnosis Comments BASIC METABOLIC PANEL Routine 08/28/2021 9:41 AM EST Mixed hyperlipidemia from Last 3 Months or Most Recently Relevant to Health Maintenance Results * Due to [place] law, this organization might not be sharing negative HIV tests. * (ABNORMAL) Basic Metabolic Panel (08/28/2021 9:41 AM EST) NA 139 135 - 145 mmol/L 08/28/2021 11:45 AM EST [email or web address] K 4.0 3.5 - 5.3 mmol/L 08/28/2021 11:45 AM EST [facility] Cl 103 97 - 110 mmol/L 08/28/2021 11:45 AM EST [facility] CO2 31 24 - 32 mmol/L 08/28/2021 11:45 AM EST [facility] BUN 23 7 - 23 mg/dL 08/28/2021 11:45 AM EST [facility] Creatinine 1.30 0.60 - 1.30 mg/dL 08/28/2021 11:45 AM EST [facility] Glucose 97 70 - 99 mg/dL 08/28/2021 11:45 AM EST [facility] Calcium 9.3 8.7 - 10.7 mg/dL 08/28/2021 11:45 AM EST [facility] Anion Gap 5 5 - 15 08/28/2021 11:45 AM EST [facility] eGFR Non- 55(L) >=90 mL/min/BSA 08/28/2021 11:45 AM EST [facility] eGFR 63(L) >=90 mL/min/BSA 08/28/2021 11:45 AM EST [facility] Comment: Units = mL/min/1.73 m2 Glomerular Filtration Rate (GFR) is estimated based on the CKD-EPI Creatinine Equation (2009). Stage Description GFR 1 Normal >=90 mL/min/BSA 2 Mildly decreased GFR 60-89 mL/min/BSA 3 Moderately decreased GFR 30-59 mL/min/BSA 4 Severely decreased GFR 15-29 mL/min/BSA 5 Kidney Failure <15 mL/min/BSA Blood Structure of peripheral vein / Unknown Venipuncture / Unknown 08/28/2021 9:41 AM EST 08/28/2021 11:15 AM EST us Kimberly De Souza MD LAB BLOOD ORDERABLES Final [facility]u [facility] [address] [place] [address], from Last 3 Months or Most Recently Relevant to Health Maintenance Insurance MEDICARE [facility] Advance Directives * Full Code (Latest Code [...] 6:20 AM 04/29/2019 9:49 AM Care Teams Climatology Professor Relationship Specialty Start Date End Date Taras Maldonado [address] [place] [address] dr Abril Samuels, RONI [address] PCP - General 04/30/17
--- OUTSIDE RECORDS SUMMARY | 2025-06-08 11:10 | XMS_ITS | Patient Health Record ---
Author Organization Taras Maldonado MD Address [address] [place] [phone] Care Team Providers Care Gem Expert Name Role Phone Taras Maldonado Primary Care Provider Allergies No Known Allergies Results Component Value Reference Range Notes Complete Blood Count Auto Di ff Reviewed date:09/30/2024 04:30:46 PM Interpretation: Performing Lab:[facility], [address] [place] [phone] Notes/Report: White Blood Count 5.3 4.8-10.8 X10*3/uL [...] NRBC Abs Auto 0.000 0.0-0.012 X10*3/uL Comprehensive Squire. Panel Fa st Reviewed date:09/30/2024 04:29:05 PM Interpretation: Performing Lab:[address] [phone] Notes/Report: Sodium 144 135-145 mmol/L Potassium 3.7 [...] Panel Reviewed date:09/30/2024 04:29:51 PM Interpretation: Performing Lab:[address] [phone] Notes/Report: Triglycerides 233 <150 mg/dL Desirable Triglyceride: [...] (Free>4and<10) Reviewed date:09/30/2024 04:30:26 PM Interpretation: Performing Lab:[address] [phone] Notes/Report: PSA,Total (Free>4and<10) < 0.10 0.00-4.00 ng/mL [...] A1c Reviewed date:09/30/2024 04:30:54 PM Interpretation: Performing Lab:[address] [phone] Notes/Report: Hemoglobin A1c % 5.1 <6.0 % [...] average glucose, using the formula of the L7B-Bbwjzap Average Glucose study (ADAG), Diabetes Care, Vol.31,#8, 2007 UA ClnCatch+Micro w/rflx Cul t Reviewed date:11/15/2024 10:16:45 AM Interpretation:see back 11-15-2024 Performing Lab:[facility], [address] [place] [phone] Notes/Report: Urine, Clean Catch Color Urine Yellow Appearance Urine Clear PH 5.5 5.0-9.0 Glucose Urine UA Negative Negative mg/dL Urine Blood Small (1+) Negative Specific [place] - Urine 1.020 1.005-1.025 Urine Protein 100 (2+) Neg-Trace mg/dL Urine Ketones Negative Negative mg/dL Nitrite Urine Negative Negative Leukocyte Esterase Urine Negative Negative RBC Urine 0-2 0-2 /HPF WBC Urine 0-5 0-5 /HPF Squamous Epithelial Cell Urine 0-2 0-2 /HPF Other Crystals Urine Present Uric Ac id Bacteria Urine None Seen None Seen Hyaline Casts Urine 0-2 0-2 /LPF Liver Panel Reviewed date:04/11/2025 04:33:59 PM Interpretation: Performing Lab:[facility], [address] [place] [phone] Notes/Report: Bilirubin Total 1.6 0.0-1.0 mg/dL Slight Icte que. Bilirubin Direct 0.3 0.0-0.5 mg/dL Slight Ict erus. Aspartate Amino Transferase 33 5-37 U/L Alanine Aminotransferase 19 0-40 U/L Total Protein 7.3 6.5-8.0 g/dL Albumin Level 4.8 3.5-5.0 g/dL Alkaline Phosphatase 71 39-117 U/L Lipid Panel with Reflex Reviewed date:04/11/2025 04:41:17 PM Interpretation: Performing Lab:[facility], [address] [place] [phone] Notes/Report: Triglycerides 302 <150 mg/dL Desirable Triglyceride: [...] low results in patients with liver disease. Occult Blood, Stool, Guaiac Reviewed date:10/13/2024 03:19:42 PM Interpretation:Negative Performing Lab: Notes/Report: Negative Occult Blood, Stool, Guaiac Neg Urinalysis and Microscopic Reviewed date:10/14/2024 09:43:24 AM Interpretation: Performing Lab:[facility], [address] [place] [phone] Notes/Report: Color Urine Yellow Appearance Urine Clear PH 5.0 5.0-9.0 Glucose Urine UA Negative Negative mg/dL Urine Blood Trace Negative Specific [place] - Urine 1.025 1.005-1.025 Urine Protein 100 (2+) Neg-Trace mg/dL Urine Ketones Negative Negative mg/dL Nitrite Urine Negative Negative Leukocyte Esterase Urine Negative Negative RBC Urine 0-2 0-2 /HPF WBC Urine 0-5 0-5 /HPF Squamous Epithelial Cell Urine 0-2 0-2 /HPF Bacteria Urine None Seen None Seen Hyaline Casts Urine 11-20 0-2 /LPF Granular Casts Urine Present Vitamin B12 and Folate Reviewed date:04/25/2025 12:35:01 PM Interpretation: Performing Lab:[address] [phone] Notes/Report: Vitamin B12 387 200-900 pg/mL NORMAL 200-900 PG/ML INDETERMINATE 160-199 PG/ML DEFICIENT < 160 PG/ML Folate 10.5 > or = 4.0 ng/mL Reference Values: > or = 4.0 ng/mL < 4.0 ng/mL suggests folate deficiency Methotrexate, aminopterin and folinic acid (leucovorin) are chemotherapeutic agents whose molecular structures are similar to folate; therefore, the [employer] folate assay cannot be used for patients using these drugs. UA CC w/rflx Micro + Cult Reviewed date:11/15/2024 12:21:31 PM Interpretation: Performing Lab:[facility], [address] [place] [phone] Notes/Report: [id number] Urine, Clean Catch Color Urine Yellow Appearance Urine Clear PH 5.5 5.0-9.0 Glucose Urine UA Negative Negative mg/dL Urine Blood Negative Negative Specific [place] - Urine 1.015 1.005-1.025 Urine Protein Trace Neg-Trace mg/dL Urine Ketones Negative Negative mg/dL Nitrite Urine Negative Negative Leukocyte Esterase Urine Negative Negative Hold Gold Reviewed date:04/11/2025 04:34:51 PM Interpretation: Performing Lab:[facility], [address] [place] [phone] Notes/Report: Hold Gold See Note Specimen held untested for 24 hours; Call to request Chemistry testing. Reason For Referral No Information Medications Medication SIG (Take, Route, Frequency, Duration) Notes Start Date End Date Status Acetaminophen 325 MG 1 tablet as needed Orally every 4 hrs Not-Taking Nitrostat 0.4 MG as directed Sublingu al every 5 minutes times 3 for chest pain for 10 days 04/26/2019 Not-Taking Aspirin 81 MG 2tablet Orally Once a day Active Ciclopirox Olamine 0.77 % 1 application to affected area Externally Twice a day Not-Javier sloan Vitamin D 25 MCG (1000 UT) 1 tablet Orally Once a day Active Tetracycline HCl 250 MG 1 capsule Orally once a day Not-Taking Vytorin 10-20 MG TAKE 1 TABLET BY KETAN TH EVERY DAY Not-Taking Ciclopirox 0.77 % 1 application to affected area Externally Twice a day Not-Javier g amLODIPine Besylate 10 MG 1 tablet Orall y Once a day for 90 days 10/13/2024 Active Calcium Carbonate 600 MG as directed Orally Active Ibuprofen 800 MG 1 tablet Orally Thre e times a day for 30 day(s) 02/06/2015 Not-Taking Immunizations Vaccine Route Administration Date Status Comme nts Flu Vaccine IM Intramuscular 06/18/2011 Administered Shingles IM Intramuscular 10/07/2011 Administered Flu Vaccine Unknown 06/23/2012 Administered [facility] TDaP IM Intramuscular 04/25/2013 Administered Flu Vaccine IM Intramuscular 07/12/2013 Administered Fluarix Quadrivalent IM Intramuscular 06/13/2014 Administe red PPSV23 (Pnemovax) IM Intramuscular 04/06/2015 Administered Fluarix Quadrivalent IM Intramuscular 07/17/2015 Administe red Fluarix Quadrivalent IM Intramuscular 07/22/2016 Administe red Prevnar 13 IM Intramuscular 01/27/2017 Administered [...] Administer ed Flu Vaccine Unknown 06/13/2014 Pending Social History Tobacco Use: Social History Observation [...] Never (0 point) Points 1 Interpretation Negative Problems Problem Type SNOMED Code ICD Code Onset Dates Problem Status W/U Status Risk Notes Problem 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 Problem 703375342 Tubular adenoma of colon (D12.6) Active confirmed Problem 070275029 Gastroesophageal reflux disease without esophagitis (K21.9) Active confirmed Problem 658107995 Elevated fasting blood sugar (R73.01) Active confirmed Problem 61461965 Essential hypert ension (I10) Active confirmed Problem 039898310 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) Active confirmed Problem 497045343 Prostate cancer (C61) Active confirme d Problem 410641794 High triglycerid es (E78.1) Active confirmed Problem 87484523 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.10) Active confirmed Problem 515097325 Anemia due to ot her cause, not classified (D64.89) Active confirmed Problem Amnesia (83217652) Memory changes (R41.3) Active confirmed Problem 721317498 Pure hypercholesterolemia (E78.00) Active confirmed Problem 4709546234160 Coronary artery disease of [place] artery of [place] heart with stable angina pectoris (I25.118) Active confirmed Problem 465134460 Cardiac arrhythm ia, unspecified cardiac arrhythmia type (I49.9) Active confirmed Problem Mild cognitive disorder (334725159) MCI (mild cognitive impairment) (G31.84) Active confirmed Problem 042085900 Squamous cell carcinoma, 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) Active confirmed Problem 698730653 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) Active confirmed Vital Signs Blood pressure diastolic 60 mm Hg 04/25/2025 misael ght is down 8 pounds since 10-13-24 Height 70.25 in 04/25/2025 weight is down 8 pounds since 10-13-24 Blood pressure systolic 132 mm Hg 04/25/2025 weig ht is down 8 pounds since 10-13-24 Weight 185 lbs 04/25/2025 weight is down 8 pounds since 10-13-24 BMI 26.35 kg/m2 04/25/2025 weight is down 8 pounds since 10-13-24 Encounters Encounter Location Date Provider Diagnosis Taras Maldonado MD [address] [place], [place] [id number] 06/21/2024 Taras Maldonado Encounter for immuni zation Z23 Taras Maldonado MD [address] [place] [id number] 09/30/2024 Taras Maldonado Essential hypertensi on I10 ; Pure hypercholesterolemia E78.00 and Elevated fasting blood sugar R73.01 Taras Maldonado MD [address] [place] [id number] 11/15/2024 Taras Maldonado Hematuria R31.9 Taras Maldonado MD [address] [place] [id number] 04/11/2025 Taras Maldonado Pure hypercholestero lemia E78.00 Taras Maldonado MD [address] [place] [id number] 10/13/2024 Taras Maldonado Microscopic hematuri a R31.29 ; Essential hypertension I10 ; Elevated fasting blood sugar R73.01 ; Gastroesophageal reflux disease without esophagitis K21.9 ; Pure hypercholesterolemia E78.00 ; Colon cancer screening Z12.11 and Depression screening Z13.31 Taras Maldonado MD [address] [place] [id number] 04/25/2025 Taras Maldonado MCI (mild cognitive impairment) G31.84 ; High triglycerides E78.1 and Coronary artery disease of [place] artery of [place] heart with stable angina pectoris I25.118 Assessments Encounter Date Diagnosis (ICD Code) Assessment Notes Treatment Notes Treatment Clinical Notes Section Notes 06/21/2024 Encounter for immunization (ICD-10 - Z23) 09/30/2024 Essential hypertensi on (ICD-10 - I10) 09/30/2024 Pure hypercholesterolemia (ICD-10 - E78.00) 11/15/2024 Hematuria (ICD-10 - R31.9) 04/11/2025 Pure hypercholesterolemia (ICD-10 - E78.00) 10/13/2024 Microscopic hematuri a (ICD-10 - R31.29) 10/13/2024 Essential hypertensi on (ICD-10 - I10) a little higher than lillie hutton wants it so will increase to 10 mg, patient verbalized understanding of change in directions 04/25/2025 MCI (mild cognitive impairment) (ICD-10 - G31.84) is getting worse, pending abs, will continue to monitor 09/30/2024 Elevated fasting blo od sugar (ICD-10 - R73.01) 10/13/2024 Elevated fasting blo od sugar (ICD-10 - R73.01) stable, will continue to monitor 04/25/2025 High triglycerides (ICD-10 - E78.1) had been better on statin 10/13/2024 Gastroesophageal ref lux disease without esophagitis (ICD-10 - K21.9) doing well, will continue current regiment 04/25/2025 Coronary artery dise ase of [place] artery of [place] heart with stable angina pectoris (ICD-10 - I25.118) not taking his statin. needs to get back on statins 10/13/2024 Pure hypercholesterolemia (ICD-10 - E78.00) stable, will continue currentregiment 10/13/2024 Colon cancer screeni ng (ICD-10 - Z12.11) guaiac negative 10/13/2024 Depression screening (ICD-10 - Z13.31) negative screen Plan Of Treatment Pending Test Test Name Order Date Electrocardiogram (EKG) 08/04/2016 Electrocardiogram (EKG) 08/14/2017 Stress Test 04/12/2019 ECG holter monitor 48 hour 04/06/2023 Next Appt Details Provider Name:Taras Baldwin ier, 08/03/2025 10:30:00 AM, [address] [place] [address], [address], [phone], Provider Name:Taras Baldwin ier, 10/09/2025 08:15:00 AM, [address] [place] [address], [address], [phone], Provider Name:Taras Baldwin ier, 10/16/2025 01:00:00 PM, [address] [place] [address], [address], [phone], Insurance Providers Payer Name Payer Address Payer Phone Subscriber Number Group Number Insured Name Patient Relationship to Insured Coverage Start Date Coverage End Date MEDICARE [employer] [address] [place] [address] [id number] Erik Rosales Self - patient is the insured [facility] [address] [place] [phone] [id number] Erik Rosales Self - patient is the insured Medical (General) History Medical History History ICD Code colonoscopy 08/07/13 at [facility]; colonoscopy 09/09/17 - [place] - repeat 5 years endoscopy 08/07/13 at [facility] DO RECTAL IN MARCH 2022 cabg 2019 Surgical History Surgery Date(Month/Year) prostatectomy [address] Gonzalez
--- OUTSIDE RECORDS SUMMARY | 2025-06-08 11:10 | XMS_ITS ---
Author Organization [facility] Address [address] [facility] [address] [place] [phone] Phone Care Team Providers Care Solutions Executive Security Name Role Phone Taras Maldonado MD Primary Care Provider Active Problems Problem Noted Date Diagnosed Date Hyperlipidemia 04/17/2017 Malignant neoplasm of prostate 08/31/2015 Hypertensive disorder 05/28/2012 Overview (12/02/2014): Hypertensive disorder Current Treatment and Therapy Plans No current plan information found. Past Treatment and Therapy Plans Oncology Therapy Plan Plan Name Start Date Discontinue Date Treatment Medications Discontinue Reason Plan Provider LEUPROLIDE ACETATE 3 MONTH (LUPRON DEPOT 3 MONTH) 03/28/2016 07/08/2019 leuprolide (3 month) (LUPRON DEPOT 3 MONTH) a. Therapy Complete Ronak Velasquez MD
--- OUTSIDE RECORDS SUMMARY | 2025-06-08 11:10 | XMS_ITS | Patient Health Record ---
Author Organization [facility] Address [address] [place] [address] Care Team Providers Care Optical Mechanic Apprentice Name Role Phone Taras Maldonado MD Primary Care Provider Armando Ayers [phone] Allergies No Known Allergies Reason For Referral [...] Problem Status W/U Status Risk Notes Problem 765479535 Colon cancer screening (Z12.11) Active confirmed Problem Diverticulosis o f large intestine without perforation or abscess without bleeding (K57.30) Active confirmed Problem 049406795199864 Aspirin long-ter m use (Z79.82) Active confirmed Plan Of Treatment Pending Test Test Name Order Date Pathology 07/27/2023 Future Test Test Name Order Date COLONOSCOPY 05/07/2023 Insurance Providers Payer Name Payer Address Payer Phone Subscriber Number Group Number Insured Name Patient Relationship to Insured Coverage Start Date Coverage End Date MEDICARE OF [place] [address] [place] [address] [phone] [id number] MICHAELMAU Self - patient is the insured [facility] [employer] [address] [place] [address] [id number] RODRIGUEZ Self - patient is the insured Medical (General) History Medical History History ICD Code CAD with CABG as below Denies MS,DM,CVA,Lung disease,renal dise ase Prostate cancer--surgery and then XRT Colonoscopy in 08/2017 was n egative at [facility]. He can't recall if he had other colonoscopies prior to that with removal of polyps. Hyperlipidemia HTN Surgical History Surgery Date(Month/Year) 3 V CABG Appendectomy Tonsillectomy Prostatectomy
== END 2025-06-08 10:48 | disposition home or self-care (01) ==
LOC: HO.HCS 09:59
PROVIDERS: PCP Internal Medicine; Visit Provider Internal Medicine Cardiovascular Disease
DX: I25.10 Atherosclerotic heart disease of native coronary artery without angina pectoris (principal); I10 Essential (primary) hypertension
CPT/HCPCS: 93010; 99214; G2211

== ENCOUNTER → 2025-06-08 09:58 | Outpatient (BNVA) | payer MEDICARE, OTHER, SELFPAY | PROVIDERS: PCP Internal Medicine; Visit Provider Internal Medicine Cardiovascular Disease | DX: I25.10 Atherosclerotic heart disease of native coronary artery without angina pectoris (principal); I10 Essential (primary) hypertension | CPT/HCPCS: 93005; 99212 ==

== ENCOUNTER 2025-08-08 10:25 | Outpatient (REF) | payer MEDICARE, OTHER, SELFPAY ==
--- OUTSIDE RECORDS SUMMARY | 2024-06-06 07:10 | XMS_ITS ---
Author Organization Taras Maldonado MD Address [address] [place] [phone] Care Team Providers Care Television Producer Name Role Phone Taras Maldonado Primary Care Provider [phone] REASON FOR VISIT refill Medications Medication SIG (Take, Route, Frequency, Duration) Notes Start Date End Date Status Rosuvastatin Calcium 40 MG 1 tablet Oral ly Once a day for 90 days Active Encounters Encounter Location Date Provider Diagnosis Taras Maldonado MD [address] [place] [address] [place] [phone] 06/06/2024 Taras Maldonado Pure hypercholestero lemia E78.00 Assessments Encounter Date Diagnosis (ICD Code) Assessment Notes Treatment Notes Treatment Clinical Notes Section Notes 06/06/2024 Pure hypercholesterolemia (ICD-10 - E78.00) Plan Of Treatment Medication Medication Name Sig Start Date Stop Date Notes Rosuvastatin Calcium 40 MG 1 tablet Oral ly Once a day for 90 days Next Appt Details Provider Name:Taras suresh, 10/09/2025 08:15:00 AM, [address] [place] [address], [address], [phone], Provider Name:Taras suresh, 10/16/2025 01:00:00 PM, [address] [place] [address], [address], [phone], Progress Notes * Gómez ROSALESDOB: [birth year] (74 yo M)Acc No.[id number]:06/06/2024 Patient: Gómez Champagne :1950 A ge:74 Y S ex:Male Address:[address] [place] [phone] * Refills Refill Rosuvastatin Calcium Tablet, 40 MG, Orally, 90, 1 tablet, Once a day, 90 days, Refills=3 * true * Date: Generated for Michael vázquez/Raymond/Tarik on: 12:58 PM EDT
--- OUTSIDE RECORDS SUMMARY | 2024-06-21 05:45 | XMS_ITS ---
Author Organization Taras Maldonado MD Address [address] [place] [phone] Care Team Providers Care Video Game Creator Name Role Phone Taras Maldonado Primary Care Provider REASON FOR VISIT HDF Immunizations Vaccine Route Administration Date Status Comme nts Influenza High Dose IM Intramuscular 06/21/2024 Administer ed Encounters Encounter Location Date Provider Diagnosis Taras Maldonado MD [address] [place] [phone] 06/21/2024 Taras Maldonado Encounter for immunization Z23 Assessments Encounter Date Diagnosis (ICD Code) Assessment Notes Treatment Notes Treatment Clinical Notes Section Notes 06/21/2024 Encounter for immunization (ICD-10 - Z23) Plan Of Treatment Next Appt Details Provider Name:Taras suresh, 10/09/2025 08:15:00 AM, [address] [place] [address], [phone], Provider Name:Taras suresh, 10/16/2025 01:00:00 PM, [address] [place] [address], [phone], Progress Notes * Gómez ROSALESDOB: [birth year] (75 yo M)Acc No.[id number]:06/21/2024 Progress Note Patient: Meli GOMEZ Gómez Torrez Provider: Destiney Maldonado MD :1950 A ge:74 Y S ex:Male Date:06/21/2024 Address:[facility] [place], [phone] Subjective: * Chief Complaints: * 1 . HDF. * Medical History: Objective: * Vitals: Assessment: * Assessment: 1. E ncounter for immunization - Z23 (Primary) Plan: * Treatment: * Immunizations: Influenza High Dose : 0.5 mL (Dose No:1) (Route: Intramuscular) given by Tanya Carnes , Office Staff on Left Deltoid * Procedure Codes: 9 0662 FLU VACC PRSV FREE INC ANTIG, G0008 ADMN FLU VAC NO FEE SCHED SAME DAY * * The named appointment provid er may or may not be the originator of this progress note, and it is not deemed complete until electronically signed by the appointment provider. Sign off status: Pending * Provider: Destiney Maldonado MD Date: 0 06/21/2024 Generated for Michael vázquez/Raymond/Leoniditting on: 1 12:59 PM EDT
--- OUTSIDE RECORDS SUMMARY | 2024-09-30 03:00 | XMS_ITS ---
Author Organization Taras Maldonado MD Address [address] [place], [place] [phone] Care Team Providers Care Spooler Operator Name Role Phone Taras Maldonado Primary Care Provider Results Component Value Reference Range Notes Complete Blood Count Auto Di ff Reviewed date:09/30/2024 04:30:46 PM Interpretation: Performing Lab:[facility], [address] [place] [phone] Notes/Report: White Blood Count 5.3 4.8-10.8 X10*3/uL Red Blood Count 4.45 4.60-5.80 X10*6/uL Hemoglobin 14.8 14.0-18.0 g/dl Hematocrit 42.1 42.0-52.0 % Mean Corpuscular Volume 94.6 80.0-98.0 fL Mean Corpuscular Hemoglobin 33.3 27.0-33.0 pg Mean Corpuscular HGB Conc 35.2 31.0-36.0 g/dl Red Cell Distribution Width 12.4 11.0-16.0 % Platelet Count 188 160-400 X10*3/uL Mean Platelet Volume 8.9 9.4-12.4 fL Neutrophils Percent Auto 70.0 45-73 % Imm Gran Pct Auto 0.2 0.0-0.4 % Lymphocytes Percent Auto 18.6 20-40 % Monocytes Percent Auto 8.5 2-11 % Eosinophils Percent Auto 2.3 0-4 % Basophils Percent Auto 0.4 0-2 % NRBC Pct Auto 0.0 0.0-0.2 /100WBC Neutrophils Absolute Auto 3.7 2.0-8.3 x10*3/u L Imm Gran Abs Auto 0.01 0.00-0.03 X10*3/uL Lymphocytes Absolute Auto 1.0 1.2-4.9 X10*3/u L Monocytes Absolute Auto 0.5 0.1-1.2 X10*3/uL Eosinophils Absolute Auto 0.1 0.0-0.4 X10*3/u L Basophils Absolute Auto 0.0 0.0-0.2 X10*3/uL NRBC Abs Auto 0.000 0.0-0.012 X10*3/uL Comprehensive [place]. Panel Fa st Reviewed date:09/30/2024 04:29:05 PM Interpretation: Performing Lab:[address] [phone] Notes/Report: Sodium 144 135-145 mmol/L Potassium 3.7 3.3-5.1 mmol/L Chloride 108 96-108 mmol/L Carbon Dioxide 29 22-29 mmol/L Anion Gap 11 12-20 Blood Urea Nitrogen 19 9-16 mg/dL Creatinine 1.21 0.5-1.4 mg/dL Estimated Glomerular Filt Rate 58 Chronic Kidney Disease: Estimated GFR < 60 mL/min/1.73m2 Severe Kidney Disease: Estimated GFR < 15 mL/min/1.73m2 Glucose Fasting 113 60-99 mg/dL A fasting glucose from 100-125 mg/dl is considered impaired (pre-diabetes). Calcium 9.7 8.4-10.2 mg/dL Bilirubin Total 1.9 0.0-1.0 mg/dL Aspartate Amino Transferase 46 5-37 U/L Alanine Aminotransferase 31 0-40 U/L Total Protein 7.6 6.5-8.0 g/dL Albumin Level 4.6 3.5-5.0 g/dL Alkaline Phosphatase 70 39-117 U/L Lipid Panel Reviewed date:09/30/2024 04:29:51 PM Interpretation: Performing Lab:[address] [phone] Notes/Report: Triglycerides 233 <150 mg/dL Desirable Triglyceride: less than 150 mg/dL Borderline High Triglyceride 150-199 mg/dL High Triglyceride: 200-499 mg/dL Very High Triglyceride: greater than or equal to 5OO mg/dL Cholesterol 111 <200 mg/dL Desirable Cholesterol: less than 200 mg/dL Borderline High Cholesterol: 200-239 mg/dL High Cholesterol: greater than 239 mg/dL LDL Cholesterol Calculated 37 <100 mg/dL Desirable LDL: less than 100 mg/dL Near Optimal/Above Optimal LDL: 110-129 mg/dL Borderline High LDL: 130-159 mg/dL High LDL: 160-189 mg/dL Very High LDL: greater than or equal to 190 mg/dL HDL Cholesterol 28 >40 mg/dL Desirable HDL: greater than 40 mg/dL Note: This HDL assay may give artificially low results in patients with liver disease. PSA,Total (Free>4and<10) Reviewed date:09/30/2024 04:30:26 PM Interpretation: Performing Lab:[address] [phone] Notes/Report: PSA,Total (Free>4and<10) < 0.10 0.00-4.00 ng/mL A Free PSA was not performed: The percentage of Free PSA can be used to enhance the differentiation of prostate cancer from benign prostatic disease in subjects whose PSA levels are between 4.0 and 10.0 ng/mL. For subjects whose PSA levels are below 4.0 or above 10.0 ng/mL, the risk of prostate cancer is determined on the basis of the PSA alone. Therefore the % Free PSA is recommended only for those subjects whose PSA levels are between 4.0 and 10.0 ng/mL. PSA methodology: Villafuerte Alinity i Chemiluminescent Microparticle Immunoassay (CMIA) Hemoglobin A1c Reviewed date:09/30/2024 04:30:54 PM Interpretation: Performing Lab:[address] [phone] Notes/Report: Hemoglobin A1c % 5.1 <6.0 % Hemoglobin A1C Reference Range Adults: 4.8 - 6.0 % Non diabetic: < 6.0 % Goal: < 7.0 % Additional Action Suggested: > 8.0 % Note: Hemoglobin A1c results are invalid for patients with abnormal amounts of HbF. Blood transfusions may impact the HbA1c concentration in the patient sample. Estimated Average Glucose 100 eAG = Estimated average glucose which is %A1C expressed as average glucose, using the formula of the Z9Q-Ahlcujk Average Glucose study (ADAG), Diabetes Care, Vol.31,#8, 2007 UA ClnCatch+Micro w/rflx Cul t Reviewed date:11/15/2024 10:16:45 AM Interpretation:see back 11-15-2024 Performing Lab:[facility], [address] [place] [phone] Notes/Report: Urine, Clean Catch Color Urine Yellow Appearance Urine Clear PH 5.5 5.0-9.0 Glucose Urine UA Negative Negative mg/dL Urine Blood Small (1+) Negative Specific [place] - Urine 1.020 1.005-1.025 Urine Protein 100 (2+) Neg-Trace mg/dL Urine Ketones Negative Negative mg/dL Nitrite Urine Negative Negative Leukocyte Esterase Urine Negative Negative RBC Urine 0-2 0-2 /HPF WBC Urine 0-5 0-5 /HPF Squamous Epithelial Cell Urine 0-2 0-2 /HPF Other Crystals Urine Present Uric Ac id Bacteria Urine None Seen None Seen Hyaline Casts Urine 0-2 0-2 /LPF REASON FOR VISIT FASTING LABS Encounters Encounter Location Date Provider Diagnosis Taras Maldonado MD [address] [place] [address] [place] [phone] 09/30/2024 Taras Maldonado Essential hypertensi on I10 ; Pure hypercholesterolemia E78.00 and Elevated fasting blood sugar R73.01 Assessments Encounter Date Diagnosis (ICD Code) Assessment Notes Treatment Notes Treatment Clinical Notes Section Notes 09/30/2024 Essential hypertensi on (ICD-10 - I10) 09/30/2024 Pure hypercholesterolemia (ICD-10 - E78.00) 09/30/2024 Elevated fasting blo od sugar (ICD-10 - R73.01) Plan Of Treatment Next Appt Details Provider Name:Taras suresh, 10/09/2025 08:15:00 AM, [address] [place] [address], Suite [facility], [place], [place], [phone], Provider Name:Taras suresh, 10/16/2025 01:00:00 PM, [address] [place] [address], Suite [facility], [place], [place], [phone], Progress Notes * Erik ROSALES: 9 (75 yo M)Acc No.[id number]:09/30/2024 Progress Note Patient: Erik GUEVARA Provider: Destiney Maldonado MD :1950 A ge:74 Y S ex:Male Date:09/30/2024 Address:[address] [place], [place] [phone] Subjective: * Chief Complaints: * 1 . FASTING LABS. * Medical History: Objective: * Vitals: Assessment: * Assessment: 1. E ssential hypertension - I10 (Primary) 2 . P ure hypercholesterolemia - E78.00 3 . E levated fasting blood sugar - R73.01 Plan: * Treatment: 2. P ure hypercholesterolemia L AB: Complete Blood Count Auto Diff (Collection Date & Time - 09/30/2024 07:00 AM) L AB: Comprehensive [place]. Panel Fast (Collection Date & Time - 09/30/2024 07:00 AM) L AB: Lipid Panel (Collection Date & Time - 09/30/2024 07:00 AM) L AB: PSA,Total (Free>4and<10) (Collection Date & Time - 09/30/2024 07:00 AM) L AB: Hemoglobin A1c (Collection Date & Time - 09/30/2024 07:00 AM) L AB: UA ClnCatch+Micro w/rflx Cult (Collection Date & Time - 09/30/2024 07:00 AM) 3. E levated fasting blood sugar L AB: Complete Blood Count Auto Diff (Collection Date & Time - 09/30/2024 07:00 AM) L AB: Comprehensive [place]. Panel Fast (Collection Date & Time - 09/30/2024 07:00 AM) L AB: Lipid Panel (Collection Date & Time - 09/30/2024 07:00 AM) L AB: PSA,Total (Free>4and<10) (Collection Date & Time - 09/30/2024 07:00 AM) L AB: Hemoglobin A1c (Collection Date & Time - 09/30/2024 07:00 AM) L AB: UA ClnCatch+Micro w/rflx Cult (Collection Date & Time - 09/30/2024 07:00 AM) * Procedure Codes: 3 6415 VENIPUNCT, ROUTINE* * * The named appointment provid er may or may not be the originator of this progress note, and it is not deemed complete until electronically signed by the appointment provider. Sign off status: Pending * Provider: Destiney Maldonado MD Date: 1 12/01/2023 Generated for Michael vázquez/Raymond/Tarik on: 1 12:57 PM EDT
--- OUTSIDE RECORDS SUMMARY | 2024-10-13 10:30 | XMS_ITS ---
Author Organization Taras Maldonado MD Address [address] [place], [place] [id number] Care Team Providers Care Nail Kegger Name Role Phone Taras Maldonado Primary Care Provider Allergies No Known Allergies Results Component Value Reference Range Notes Occult Blood, Stool, Guaiac Reviewed date:10/13/2024 03:19:42 PM Interpretation:Negative Performing Lab: Notes/Report: Negative Occult Blood, Stool, Guaiac Neg Urinalysis and Microscopic Reviewed date:10/14/2024 09:43:24 AM Interpretation: Performing Lab:[facility], [address] [place] [id number] Notes/Report: Color Urine Yellow Appearance Urine Clear PH 5.0 5.0-9.0 Glucose Urine UA Negative Negative mg/dL Urine Blood Trace Negative Specific [place] - Urine 1.025 1.005-1.025 Urine Protein 100 (2+) Neg-Trace mg/dL Urine Ketones Negative Negative mg/dL Nitrite Urine Negative Negative Leukocyte Esterase Urine Negative Negative RBC Urine 0-2 0-2 /HPF WBC Urine 0-5 0-5 /HPF Squamous Epithelial Cell Urine 0-2 0-2 /HPF Bacteria Urine None Seen None Seen Hyaline Casts Urine 11-20 0-2 /LPF Granular Casts Urine Present REASON FOR VISIT review labs/ must see urine, Accompanied by Medications Medication SIG (Take, Route, Frequency, Duration) Notes Start Date End Date Status Ibuprofen 800 MG 1 tablet Orally Thre e times a day for 30 day(s) 02/06/2015 Not-Taking Ciclopirox Olamine 0.77 % 1 application to affected area Externally Twice a day Not-Takin g Tetracycline HCl 250 MG 1 capsule Orally once a day Not-Taking Vytorin 10-20 MG TAKE 1 TABLET BY KETAN TH EVERY DAY Not-Taking amLODIPine Besylate 10 MG 1 tablet Orall y Once a day for 90 days 10/13/2024 Active Ciclopirox 0.77 % 1 application to affected area Externally Twice a day Not-Takin g Acetaminophen 325 MG 1 tablet as needed Orally every 4 hrs Not-Taking Nitrostat 0.4 MG as directed Sublingu al every 5 minutes times 3 for chest pain for 10 days 04/26/2019 Not-Taking Rosuvastatin Calcium 40 MG 1 tablet Orally Once a day Active Omeprazole 20 MG take one capsule by mouth every day Orally Once a day Active Aspirin 81 MG 2tablet Orally Once a day Active amLODIPine Besylate 5 MG 1.5 tablet Oral ly Once a day 12/17/2023 Active Calcium Carbonate 600 MG as directed Orally Active Social History Tobacco Use: Social History Observation Description Date Details (start date - stop date) Never Smoker NA - NA Tobacco Use/Smoking Question Answer Notes Patient is [...] Never (0 point) Points 1 Interpretation Negative Vital Signs Blood pressure systolic 132 mm Hg 10/13/19 25 Blood pressure diastolic 64 mm Hg 025 Height 70.25 in 10/13/2024 Weight 193 lbs 10/13/2024 BMI 27.49 kg/m2 10/13/2024 weight is up 2 pounds since 04-28-24 Encounters Encounter Location Date Provider Diagnosis Taras Maldonado MD [address] [place] [address] [address] [place], [place] [phone] 10/13/2024 Taras Maldonado Microscopic hematuri a R31.29 ; Essential hypertension I10 ; Elevated fasting blood sugar R73.01 ; Gastroesophageal reflux disease without esophagitis K21.9 ; Pure hypercholesterolemia E78.00 ; Colon cancer screening Z12.11 and Depression screening Z13.31 Assessments Encounter Date Diagnosis (ICD Code) Assessment Notes Treatment Notes Treatment Clinical Notes Section Notes 10/13/2024 Microscopic hematuri a (ICD-10 - R31.29) 10/13/2024 Essential hypertensi on (ICD-10 - I10) a little higher than er brennen wants it so will increase to 10 mg, patient verbalized understanding of change in directions 10/13/2024 Elevated fasting blo od sugar (ICD-10 - R73.01) stable, will continue to monitor 10/13/2024 Gastroesophageal ref lux disease without esophagitis (ICD-10 - K21.9) doing well, will continue current regiment 10/13/2024 Pure hypercholesterolemia (ICD-10 - E78.00) stable, will continue currentregiment 10/13/2024 Colon cancer screeni ng (ICD-10 - Z12.11) guaiac negative 10/13/2024 Depression screening (ICD-10 - Z13.31) negative screen Plan Of Treatment Medication Medication Name Sig Start Date Stop Date Notes amLODIPine Besylate 10 MG 1 tablet Orall y Once a day for 90 days 10/13/2024 Rosuvastatin Calcium 40 MG 1 tablet Orally Once a day Omeprazole 20 MG take one capsule by mouth every day Orally Once a day Treatment Notes Assessment Notes Essential hypertension a little higher t aguilar er brennen wants it so will increase to 10 mg, patient verbalized understanding of change in directions Elevated fasting blood sugar stable, lizbeth l continue to monitor Gastroesophageal reflux dise ase without esophagitis doing well, will continue current regiment Pure hypercholesterolemia stable, will c ontinue currentregiment Colon cancer screening guaiac negative Depression screening negative screen Next Appt Details Follow Up: 6 Months, Reason: bp Provider Name:Taras suresh, 10/09/2025 08:15:00 AM, [address] [place] [address], [address], [place], [place], [phone], Provider Name:Taras suresh, 10/16/2025 01:00:00 PM, [address] [place] [address], [address], [place], [place], [phone], Progress Notes * Erik ROSALES: 9 (74 yo M)Acc No.[id number]:10/13/2024 Patient: Erik Champagne Provider: Destiney Maldonado MD :1950 A ge:74 Y S ex:Male Date:10/13/2024 Address:[address] [place], [place] [id number] Subjective: * Chief Complaints: * R eview labs/ must see urineAccompanied by * HPI: D epression Screening: PHQ-9 L ittle interest or pleasure in doing things N ot at all, F eeling down, depressed, or hopeless N ot at all, T rouble falling or staying asleep, or sleeping too much N ot at all, F eeling tired or having little energy N ot at all, P oor appetite or overeating N ot at all, F eeling bad about yourself or that you are a failure, or have let yourself or your family down N ot at all, T rouble concentrating on things, such as reading the newspaper or watching television N ot at all, M oving or speaking so slowly that other people could have noticed; or the opposite, being so fidgety or restless that you have been moving around a lot more than usual N ot at all, T houghts that you would be better off or of hurting yourself in some way N ot at all, T otal Score 0 . I nterpretation and Intervention D epression Screening Findings N egative, F ollow-Up for Depression : review of PHQ-9 found negative result, no follow-up needed. patient is a 74 yo male here for visit with review of recent labs and follow up of chronic issues,. C ommunication Needs: Communication Needs D oes the patient have a hearing impairment N o, D oes the patient have a vision impairment? Y es, I f yes, what is the vision impairment? G lasses, D oes the patient have a cognition impairment? N o. F all Risk: History H ave you had any falls with injury in the past year? N o, H ave you had two or more falls in the past year? N o. S JESSICA Questions: SDOH Questions I n the past year have you been worried about losing housing? N o, I n the past year have you or any family members you live with been unable to get any of the following when it was really needed? Check all that apply: N one. * ROS: G eneral/Constitutional: Patient denies f atigue , headache. C hange in appetite?denies. C hills d enies. F ever d enies. O phthalmologic: Blurred vision d enies. D ischarge d enies. P ain d enies. E NT: Patient denies d ecreased sense of smell , any loss of taste , sore throat. D ecreased hearing d enies. S ore throat d enies. S wollen glands d enies. E ndocrine: Cold intolerance d enies. E xcessive thirst d enies. H eat intolerance d enies. W eight loss d enies. R espiratory: Cough d enies. S hortness of breath at rest d enies. S hortness of breath with exertion d enies. W heezing d enies. C ardiovascular: Chest pain at rest d enies. C hest pain with exertion?denies. I rregular heartbeat d enies. S hortness of breath d enies. ? G astrointestinal: Abdominal pain d enies. C hange in bowel habits d enies. D iarrhea d enies. N ausea d enies. R ectal bleeding d enies. V omiting d enies . G enitourinary: Blood in urine d enies. D ifficulty urinating d enies. F requent urination d enies. M usculoskeletal: Patient denies m uscle aches. P ainful joints d enies. W eakness d enies. P eripheral Vascular: Patient denies r ed and blue toes. S kin: Dry skin d enies. I tching d enies. D enies?Mole(s), changes in moles, new moles or any lesions of concern. D enies P hotosensitivity. R robert d enies. N eurologic: Dizziness d enies. F ainting d enies. H eadache?denies. * Medical History: * Surgical History: * Hospitalization/Major Diagno stic Procedure: * Family History: F ather: 67 yrs. M other: 73 yrs. 1 brother(s) , 1 sister(s) . 2 daughter(s) . . Patient does not know anything about parents. 1 sister 75, Denies mental health/substance abuse family history, Denies mental health/substance abuse family history, No pertinent family medical history, Denies mental health/substance abuse family history, Denies mental health/substance abuse family history. * Social History: T obacco Use: T obacco Use/Smoking P atient is a n onsmoker, A dditional Findings: Tobacco Non-User C urrent non-smoker, currently using no form of tobacco. D rugs/Alcohol: A lcohol Screen D id you have a drink containing alcohol in the past year? Y es, H ow often did you have a drink containing alcohol in the past year? M onthly or less (1 point), H ow many drinks did you have on a typical day when you were drinking in the past year? 1 or 2 drinks (0 point), H ow often did you have 6 or more drinks on one occasion in the past year? N ever (0 point), P oints 1 , I nterpretation N egative. M iscellaneous: C affeine: yes, frequency:, 3-4 cups per day. Children: yes. no Community involvements. Exercise: yes, yard work. Housing: owning. Living with: spouse. Marital status: . Occupation: works part-time. Pets: none. no Travel outside of the [place]. * Medications: T akingAspirin 81 MG Tablet Delayed Release 2tablet Orally Once a dayCalcium Carbonate 600 MG Tablet as directed Orally Omeprazole 20 MG Capsule Delayed Release take one capsule by mouth every day Orally Once a dayamLODIPine Besylate 5 MG Tablet 1.5 tablet Orally Once a dayRosuvastatin Calcium 40 MG Tablet 1 tablet Orally Once a dayTaking Aspirin 81 MG Tablet Delayed Release 2tablet Orally Once a dayTaking Calcium Carbonate 600 MG Tablet as directed Orally Taking Omeprazole 20 MG Capsule Delayed Release take one capsule by mouth every day Orally Once a dayTaking amLODIPine Besylate 5 MG Tablet 1.5 tablet Orally Once a dayTaking Rosuvastatin Calcium 40 MG Tablet 1 tablet Orally Once a dayNot-Taking/PRNNitrostat 0.4 MG Tablet Sublingual as directed Sublingual every 5 minutes times 3 for chest painAcetaminophen 325 MG Tablet 1 tablet as needed Orally every 4 hrsCiclopirox 0.77 % Gel 1 application to affected area Externally Twice a dayVytorin 10-20 MG Tablet TAKE 1 TABLET BY MOUTH EVERY DAY Tetracycline HCl 250 MG Capsule 1 capsule Orally once a dayCiclopirox Olamine 0.77 % Cream 1 application to affected area Externally Twice a dayIbuprofen 800 MG Tablet 1 tablet Orally Three times a dayMedication List reviewed and reconciled with the patientNot-Taking/PRN Nitrostat 0.4 MG Tablet Sublingual as directed Sublingual every 5 minutes times 3 for chest painNot-Taking/PRN Acetaminophen 325 MG Tablet 1 tablet as needed Orally every 4 hrsNot-Taking/PRN Ciclopirox 0.77 % Gel 1 application to affected area Externally Twice a dayNot-Taking/PRN Vytorin 10-20 MG Tablet TAKE 1 TABLET BY MOUTH EVERY DAY Not-Taking/PRN Tetracycline HCl 250 MG Capsule 1 capsule Orally once a dayNot-Taking/PRN Ciclopirox Olamine 0.77 % Cream 1 application to affected area Externally Twice a dayNot-Taking/PRN Ibuprofen 800 MG Tablet 1 tablet Orally Three times a dayMedication List reviewed and reconciled with the patient * Allergies: N .K.D.A.yes[Allergies Verified] Objective: * Vitals: H t: 70.25, Wt:193, BMI:27.49, BP:132/64, Repeat BP:124/76 weight is up 2 pounds since 04-28-24. * P ast Orders: L ab:Comprehensive [place]. Panel Fast (Order Date - 09/30/2024) (Collection Date - 09/30/2024) Value Reference Range Sodium 144 135-145 - mmol/L Bilirubin Total 1.9 H 0.0-1.0 - mg/dL Aspartate Amino Transferase 46 H 5-37 - U/L Alanine Aminotransferase 31 0-40 - U/L Total Protein 7.6 6.5-8.0 - g/dL Albumin Level 4.6 3.5-5.0 - g/dL Alkaline Phosphatase 70 39-117 - U/L Potassium 3.7 3.3-5.1 - mmol/L Chloride 108 96-108 - mmol/L Carbon Dioxide 29 22-29 - mmol/L Anion Gap 11 L -20 - Blood Urea Nitrogen 19 H 9-16 - mg/dL Creatinine 1.21 0.5-1.4 - mg/dL Estimated Glomerular Filt Rate 58 - Glucose Fasting 113 H 60-99 - mg/dL Calcium 9.7 8.4-10.2 - mg/dL L ab:Lipid Panel (Order Date - 09/30/2024) (Collection Date - 09/30/2024) Value Reference Range Triglycerides 233 H <150 - mg/dL Cholesterol 111 <200 - mg/dL LDL Cholesterol Calculated 37 <100 - mg/dL HDL Cholesterol 28 L >40 - mg/dL L ab:PSA,Total (Free>4and<10) (Order Date - 09/30/2024) (Collection Date - 09/30/2024) Value Reference Range PSA,Total (Free>4and<10) < 0.10 0.00-4.00 - ng/ mL L ab:Hemoglobin A1c (Order Date - 09/30/2024) (Collection Date - 09/30/2024) Value Reference Range Hemoglobin A1c % 5.1 <6.0 - % Estimated Average Glucose 100 - mg/dL L ab:Complete Blood Count Auto Diff (Order Date - 09/30/2024) (Collection Date - 09/30/2024) Value Reference Range White Blood Count 5.3 4.8-10.8 - X10*3/uL Red Blood Count 4.45 L 4.60-5.80 - X10*6/uL Hemoglobin 14.8 14.0-18.0 - g/dl Hematocrit 42.1 42.0-52.0 - % Mean Corpuscular Volume 94.6 80.0-98.0 - fL Mean Corpuscular Hemoglobin 33.3 H 27.0-33.0 - pg Mean Corpuscular HGB Conc 35.2 31.0-36.0 - g/ dl Red Cell Distribution Width 12.4 11.0-16.0 - % Platelet Count 188 160-400 - X10*3/uL Mean Platelet Volume 8.9 L 9.4-12.4 - fL Neutrophils Percent Auto 70.0 45-73 - % Imm Gran Pct Auto 0.2 0.0-0.4 - % Lymphocytes Percent Auto 18.6 L 20-40 - % Monocytes Percent Auto 8.5 2-11 - % Eosinophils Percent Auto 2.3 0-4 - % Basophils Percent Auto 0.4 0-2 - % NRBC Pct Auto 0.0 0.0-0.2 - /100WBC Neutrophils Absolute Auto 3.7 2.0-8.3 - x10* 3/uL Imm Gran Abs Auto 0.01 0.00-0.03 - X10*3/uL Lymphocytes Absolute Auto 1.0 L 1.2-4.9 - X10* 3/uL Monocytes Absolute Auto 0.5 0.1-1.2 - X10*3/ uL Eosinophils Absolute Auto 0.1 0.0-0.4 - X10* 3/uL Basophils Absolute Auto 0.0 0.0-0.2 - X10*3/ uL NRBC Abs Auto 0.000 0.0-0.012 - X10*3/uL * Examination: G eneral Examination: GENERAL APPEARANCE: w ell developed, well nourished, in no acute distress. HEAD: n ormocephalic, atraumatic. EYES: p upils equal, round, reactive to light and accommodation, sclera non-icteric. EARS: n ormal. ORAL CAVITY: m ucosa moist. THROAT: c lear. NECK/THYROID: n leo supple, full range of motion, no cervical lymphadenopathy, no bruits. SKIN: w arm and dry, no suspicious lesions. HEART: r egular rate and rhythm, S1, S2 normal, no murmurs.? LUNGS: c lear to auscultation bilaterally. ABDOMEN: s oft, nontender, nondistended, bowel sounds present, normal, no organomegaly , no masses palpable. RECTAL EXAM: n ormal tone, no external hemorrhoids, no masses palpable, prostate normal, stool guaiac negative. MALE GENITOURINARY: u ncircumcised , no testicular mass , testes descended bilaterally. EXTREMITIES: n o clubbing, cyanosis, or edema. NEUROLOGIC: n onfocal, motor strength normal upper and lower extremities, sensory exam intact. Assessment: * Assessment: 1. M icroscopic hematuria - R31.29 (Primary) 2 . E ssential hypertension - I10 3 .?Elevated fasting blood sugar - R73.01 4 . G astroesophageal reflux disease without esophagitis - K21.9 5 . P ure hypercholesterolemia - E78.00 6 . C olon cancer screening - Z12.11 7 . D epression screening - Z13.31 Plan: * Treatment: 2.?Essential hypertension? Notes: a little higher than er brennen wants it so will increase to 10 mg, patient verbalized understanding of change in directions??3.?Elevated fasting blood sugar? Notes: stable, will continue to monitor??4.?Gastroesophageal reflux disease without esophagitis? Continue Omeprazole Capsule Delayed Release, 20 MG, take one capsule by mouth every day, Orally, Once a day.?? Notes: doing well, will continue current regiment??5.?Pure hypercholesterolemia? Continue Rosuvastatin Calcium Tablet, 40 MG, 1 tablet, Orally, Once a day.?? Notes: stable, will continue currentregiment??6.?Colon cancer screening?LAB: Occult Blood, Stool, Guaiac?Negative* Value Reference Range O ccult Blood, Stool, Guaiac Neg Notes: guaiac negative??7.?Depression screening? Notes: negative screen?? * Procedure Codes: 8 2270 TEST FOR BLOOD, [id number] Complex e/m visit add on * Preventive Medicine: Counseling: C are goal follow-up plan: C alessandranseling for abnormal BMI provided?Yes, A marlin Normal BMI Follow-up Destiney almanzar encouragement to exercise. * Follow Up: 6 Months (Reason: bp) * * Sign off status: Completed true * Provider: Destiney Maldonado MD Date: 0 10/13/2024 Generated for Michael vázquez/Raymond/Leoniditting on: 12:58 PM EDT History and Physical Notes * HPI (History of Present Illness) Category Sub-Category Detail Notes Category Not es Depression Screening PHQ-9 Little inte rest or pleasure in doing things: Not at all patient is a 74 yo male here for visit with review of recent labs and follow up of chronic issues, Feeling down, depressed, or hopeless: No t at all Trouble falling or staying asleep, or sl eeping too much: Not at all Feeling tired or having little energy: N ot at all Poor appetite or overeating: Not at all Feeling bad about yourself o r that you are a failure, or have let yourself or your family down: Not at all Trouble concentrating on thi ngs, such as reading the newspaper or watching television: Not at all Moving or speaking so slowly that other people could have noticed; or the opposite, being so fidgety or restless that you have been moving around a lot more than usual: Not at all Thoughts that you would be b lucia off or of hurting yourself in some way: Not at all Total Score: 0 Interpretation and Intervention Depression Lois degroot Findings: Negative Follow-Up for Depression: : review of PH Q-9 found negative result, no follow-up needed SDOH Questions SDOH Questions In the past year have you been worried about losing housing?: No In the past year have you or any family members you live with been unable to get any of the following when it was really needed? Check all that apply:: None Fall Risk History Have you had any falls with injury i n the past year?: No Have you had two or more falls in the st year?: No Communication Needs Communication Needs Does the patient have a hearing impairment: No Does the patient have a vision impairmen t?: Yes If yes, what is the vision impairment?: Glasses Does the patient have a cognition impair ment?: No Examination Category Sub-Category Detail Notes Category Not es General Examination GENERAL APPEARANCE: well dev eloped, well nourished, in no acute distress HEAD: normocephalic, atrau matic EYES: pupils equal, round, reactive to light and accommodation, sclera non-icteric EARS: normal THROAT: clear NECK/THYROID: neck supple, full ra nge of motion, no cervical lymphadenopathy, no bruits HEART: regular rate and rhy thm, S1, S2 normal, no murmurs LUNGS: clear to auscultatio n bilaterally ABDOMEN: soft, nontender, non distended, bowel sounds present, normal, no organomegaly , no masses palpable NEUROLOGIC: nonfocal, motor stre ngth normal upper and lower extremities, sensory exam intact SKIN: warm and dry, no ethan picious lesions EXTREMITIES: no clubbing, cyanosi s, or edema MALE GENITOURINARY: uncircumcised , no t esticular mass , testes descended bilaterally RECTAL EXAM: normal tone, no exte rnal hemorrhoids, no masses palpable, prostate normal, stool guaiac negative ORAL CAVITY: mucosa moist
--- OUTSIDE RECORDS SUMMARY | 2024-11-15 04:30 | XMS_ITS ---
Author Organization Taras Maldonado MD Address [address] [place] [address] [place] [phone] Care Team Providers Care Delivery Assistant Name Role Phone Taras Maldonado Primary Care Provider REASON FOR VISIT U/A Hematuria Encounters Encounter Location Date Provider Diagnosis Taras Maldonado MD [address] [place] [phone] 11/15/2024 Taras Maldonado Hematuria R31.9 Assessments Encounter Date Diagnosis (ICD Code) Assessment Notes Treatment Notes Treatment Clinical Notes Section Notes 11/15/2024 Hematuria (ICD-10 - R31.9) Plan Of Treatment Next Appt Details Provider Name:Taras suresh, 10/09/2025 08:15:00 AM, [address] [place] [address], [phone], Provider Name:Taras suresh, 10/16/2025 01:00:00 PM, [address] [place] [address], [phone], Progress Notes * Gómez ROSALESDOB: [birth year] (75 yo M)Acc No.[id number]:11/15/2024 Progress Note Patient: Meli GOMEZ Gmóez Torrez Provider: Destiney Maldonado MD :1950 A ge:74 Y S ex:Male Date:11/15/2024 Address:[address] [place], [place] [phone] Subjective: * Chief Complaints: * 1 . U/A Hematuria. * Medical History: Objective: * Vitals: Assessment: * Assessment: 1. H ematuria - R31.9 (Primary) Plan: * Treatment: * * The named appointment provid er may or may not be the originator of this progress note, and it is not deemed complete until electronically signed by the appointment provider. Sign off status: Pending * Provider: Destiney Maldonado MD Date: 0 11/15/2024 Generated for Michael vázquez/Raymond/Sethsmitting on: 12:57 PM EDT
--- OUTSIDE RECORDS SUMMARY | 2025-04-11 07:00 | XMS_ITS ---
Author Organization Taras Maldonado MD Address [address] [place], [place] [id number] Care Team Providers Care Abattoir Supervisor Name Role Phone Taras Maldonado Primary Care Provider [phone] Results Component Value Reference Range Notes Liver Panel Reviewed date:04/11/2025 04:33:59 PM Interpretation: Performing Lab:[facility], [address] [place] [phone] Notes/Report: Bilirubin Total 1.6 0.0-1.0 mg/dL Slight Icte que. Bilirubin Direct 0.3 0.0-0.5 mg/dL Slight Ict erus. Aspartate Amino Transferase 33 5-37 U/L Alanine Aminotransferase 19 0-40 U/L Total Protein 7.3 6.5-8.0 g/dL Albumin Level 4.8 3.5-5.0 g/dL Alkaline Phosphatase 71 39-117 U/L Lipid Panel with Reflex Reviewed date:04/11/2025 04:41:17 PM Interpretation: Performing Lab:[facility], [address] [place] [phone] Notes/Report: Triglycerides 302 <150 mg/dL Desirable Triglyceride: less than 150 mg/dL Borderline High Triglyceride 150-199 mg/dL High Triglyceride: 200-499 mg/dL Very High Triglyceride: greater than or equal to 5OO mg/dL Cholesterol 173 <200 mg/dL Desirable Cholesterol: less than 200 mg/dL Borderline High Cholesterol: 200-239 mg/dL High Cholesterol: greater than 239 mg/dL LDL Cholesterol Calculated 83 <100 mg/dL Desirable LDL: less than 100 mg/dL Near Optimal/Above Optimal LDL: 110-129 mg/dL Borderline High LDL: 130-159 mg/dL High LDL: 160-189 mg/dL Very High LDL: greater than or equal to 190 mg/dL HDL Cholesterol 30 >40 mg/dL Desirable HDL: greater than 40 mg/dL Note: This HDL assay may give artificially low results in patients with liver disease. REASON FOR VISIT FASTING LIPIDS Encounters Encounter Location Date Provider Diagnosis Taras Maldonado MD [address] [place] [address] Drive [address] [place] [phone] 04/11/2025 Taras Maldonado Pure hypercholestero lemia E78.00 Assessments Encounter Date Diagnosis (ICD Code) Assessment Notes Treatment Notes Treatment Clinical Notes Section Notes 04/11/2025 Pure hypercholesterolemia (ICD-10 - E78.00) Plan Of Treatment Next Appt Details Provider Name:Taras suresh, 10/09/2025 08:15:00 AM, [address] [place] [address], Suite [facility], [place], [place], [phone], Provider Name:Taras suresh, 10/16/2025 01:00:00 PM, [address] [place] [address], Suite [facility], [place], [place], [phone], Progress Notes * Erik ROSALESDOB: [birth year] (75 yo M)Acc No.[id number]:04/11/2025 Progress Note Patient: Erik GUEVARA Provider: Destiney Maldonado MD :1950 A ge:75 Y S ex:Male Date:04/11/2025 Address:[address] [place] [phone] Subjective: * Chief Complaints: * 1 . FASTING LIPIDS. * Medical History: Objective: * Vitals: Assessment: * Assessment: 1. P ure hypercholesterolemia - E78.00 (Primary) Plan: * Treatment: * Procedure Codes: 3 6415 VENIPUNCT, ROUTINE* * * The named appointment provid er may or may not be the originator of this progress note, and it is not deemed complete until electronically signed by the appointment provider. Sign off status: Pending * Provider: Destiney Maldonado MD Date: 0 04/11/2025 Generated for Michael vázquez/Raymond/Leoniditting on: 1 12:58 PM EDT
--- OUTSIDE RECORDS SUMMARY | 2025-04-25 05:00 | XMS_ITS ---
Author Organization Taras Maldonado MD Address [address] [place], [place] [id number] Care Team Providers Care Cannery Tender Engineer Name Role Phone Taras Maldonado Primary Care Provider Allergies No Known Allergies Results Component Value Reference Range Notes Vitamin B12 and Folate Reviewed date:04/25/2025 12:35:01 PM Interpretation: Performing Lab:[facility], [address] [place] [phone] Notes/Report: Vitamin B12 387 200-900 pg/mL NORMAL 200-900 PG/ML INDETERMINATE 160-199 PG/ML DEFICIENT < 160 PG/ML Folate 10.5 > or = 4.0 ng/mL Reference Values: > or = 4.0 ng/mL < 4.0 ng/mL suggests folate deficiency Methotrexate, aminopterin and folinic acid (leucovorin) are chemotherapeutic agents whose molecular structures are similar to folate; therefore, the Dietary Worker folate assay cannot be used for patients [...] Problem Status W/U Status Risk Notes Problem Mild cognitive disorder (196274710) MCI (mild cognitive impairment) (G31.84) Active confirmed Vital Signs Blood pressure systolic 132 mm Hg 04/25/20 25 Blood pressure diastolic 60 mm Hg 025 Height 70.25 in 04/25/2025 Weight 185 lbs 04/25/2025 BMI 26.35 kg/m2 04/25/2025 weight is down 8 pounds [facility] e 10-13-24 Encounters Encounter Location Date Provider Diagnosis Taras Maldonado MD [address] [place], [place] [id number] 04/25/2025 Taras Maldonado MCI (mild cognitive impairment) G31.84 ; High triglycerides E78.1 and 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 needs to get back on statins Plan Of Treatment Treatment Notes Assessment Notes MCI (mild cognitive impairment) is getti ng worse, pending abs, will continue to monitor High triglycerides had been better on s tatin Coronary artery disease of n ative artery of [place] heart with stable angina pectoris not taking his statin. needs to get back on statins Next Appt Details Follow Up: 3 Months, Reason: Provider Name:Taras Baldwin ier, 10/09/2025 08:15:00 AM, [address], [address], [place], [place], [id number], Provider Name:Taras Baldwin ier, 10/16/2025 01:00:00 PM, [address], [address], [place], [place], [id number], Progress Notes * Erik ROSALESDOB: (75 yo M)Acc No.[id number]:04/25/2025 Progress Notes Patient: Meli GOMEZ Erik Torrez Provider: Destiney Maldonado MD :1950 A ge:75 Y S ex:Male Date:04/25/2025 Address:[address] [place], [place] [id number] Subjective: * Chief Complaints: * 6 MO [...] Wt-k.92. weight is down 8 pounds since 1-2-25. * P ast Orders: L ab:Liver Panel [...] 3 . C oronary artery disease of [place] artery of [place] heart with stable angina pectoris - I25.118 Plan: * Treatment: 2. H igh triglycerides Notes: had been better on statin 3. C oronary artery disease of [place] artery of [place] heart with stable angina pectoris Notes: not taking his statin. needs to get back on statins * Procedure Codes: G 2211 Complex e/m visit add on * Follow Up: 3 Months * * Sign off status: Completed true * Provider: Destiney Maldonado MD Date: 0 04/25/2025 Generated for Michael vázquez/Raymond/eTransmitting on: 1 12:56 PM EDT History and Physical Notes * HPI (History of Present Illness) Category Sub-Category Detail Notes Category Not es Symptom(s) patient is a 75 yo male here for 6 month follow up visit/ has gotten a lot more confused in last 4 weeks/ has no sense of time and days of the week
--- OUTSIDE RECORDS SUMMARY | 2025-06-13 05:30 | XMS_ITS ---
Author Organization Taras Maldonado MD Address [address] [place] [phone] Care Team Providers Care Screening Specialist Name Role Phone Taras Maldonado Primary Care Provider REASON FOR VISIT HDF Immunizations Vaccine Route Administration Date Status Comme nts Influenza High Dose IM Intramuscular 06/13/2025 Administer ed Encounters Encounter Location Date Provider Diagnosis Taras Maldonado MD [address] [place] [address] [place] [id number] 06/13/2025 Taras Maldonado Encounter for administration of vaccine Z23 Assessments Encounter Date Diagnosis (ICD Code) Assessment Notes Treatment Notes Treatment Clinical Notes Section Notes 06/13/2025 Encounter for administration of vaccine (ICD-10 - Z23) Plan Of Treatment Next Appt Details Provider Name:Taras suresh, 10/09/2025 08:15:00 AM, [address] [place] [address], [phone], Provider Name:Taras suresh, 10/16/2025 01:00:00 PM, [address] [place] [address], [address], [phone], Progress Notes * Gómez ROSALESDOB: (75 yo M)Acc No.[id number]:06/13/2025 Progress Note Patient: Meli GOMEZ Gómez Torrez Provider: Destiney Maldonado MD :1950 A ge:75 Y S ex:Male Date:06/13/2025 Address:[address] [place] [phone] Subjective: * Chief Complaints: * 1 . HDF. * Medical History: Objective: * Vitals: Assessment: * Assessment: 1. E ncounter for administration of vaccine - Z23 (Primary) Plan: * Treatment: * [...] * Provider: Destiney Maldonado MD Date: 0 06/13/2025 Generated for Michael vázquez/Raymond/Leoniditting on: 1 12:57 PM EDT
--- OUTSIDE RECORDS SUMMARY | 2025-08-03 06:30 | XMS_ITS ---
Author Organization Taras Maldonado MD Address [address] [place], [place] [phone] Care Team Providers Care Director Advanced Name Role Phone Taras Maldonado Primary Care Provider Allergies No Known Allergies Results Component Value Reference Range Notes Hemoglobin A1c Reviewed date:08/03/2025 10:38:03 AM Interpretation: Performing Lab: Notes/Report: Hemoglobin A1c 5.2 Glucose, finger stick Reviewed date:08/03/2025 10:29:29 AM Interpretation: Performing Lab: Notes/Report: Value 94 REASON FOR VISIT 3 month, Accompanied by Medications Medication SIG (Take, Route, Frequency, Duration) Notes Start Date End Date Status amLODIPine Besylate 10 MG 1 tablet Orall y Once a day for 90 days 10/13/2024 Active Aspirin 81 MG 2tablet Orally Once a day Active Vitamin D 25 MCG (1000 UT) 1 tablet Orally Once a day Active Ibuprofen 800 [...] days 04/26/2019 Not-Taking Rosuvastatin Calcium 40 MG TAKE 1 TABLET BY MOUTH EVERY DAY FOR 90 DAYS for 90 Active Vital Signs Blood pressure systolic 110 mm Hg 08/03/20 25 Blood pressure diastolic 70 mm Hg 025 Height 70.25 in 08/03/2025 Weight 181 lbs 08/03/2025 BMI 25.78 kg/m2 08/03/2025 Encounters Encounter Location Date Provider Diagnosis Taras Maldonado MD [address] [place] [address] [place] [id number] 08/03/2025 Taras Maldonado Elevated fasting blood sugar R73.01 and Microscopic hematuria R31.29 Assessments Encounter Date Diagnosis (ICD Code) Assessment Notes Treatment Notes Treatment Clinical Notes Section Notes 08/03/2025 Elevated fasting blood sugar (ICD-10 - R73.01) doing well on present 08/03/2025 Microscopic hematuria (ICD-10 - R31.29) repeat u/a was negative Plan Of Treatment Medication Medication Name Sig Start Date Stop Date Notes amLODIPine Besylate 10 MG 1 tablet Orall y Once a day for 90 days 10/13/2024 Treatment Notes Assessment Notes Elevated fasting blood sugar doing well on present Microscopic hematuria repeat u/a was neg ative Next Appt Details Provider Name:Taras Baldwin ier, 10/09/2025 08:15:00 AM, [address] [place] [address], [address], [phone], Provider Name:Taras suresh, 10/16/2025 01:00:00 PM, [address] [place] [address], [address], [phone], Progress Notes * Erik ROSALESDOB: [birth year] (75 yo M)Acc No.[id number]:08/03/2025 Progress Notes Patient: Meli JASON Erik Torrez Provider: Destiney Maldonado MD :1950 A ge:75 Y S ex:Male Date:08/03/2025 Address:[address] [place], [place] [phone] Subjective: * Chief Complaints: * 3 monthAccompanied by * HPI: S ymptom(s): patient is a 75yo male here for 3 month follow up visit/ is moving to [facility] [place]. is not able to understand what is going on. * ROS: G eneral/Constitutional: Denies C hills. D enies F atigue. D enies F ever. D enies H eadache. E NT: Denies S ore throat. E ndocrine: Denies D ifficulty sleeping. D enies D izziness.?Denies E xcessive sweating. D enies E xcessive thirst. D enies F requent urination. R espiratory: Denies C ough. D enies S hortness of breath at rest. D enies S hortness of breath with exertion. G astrointestinal: Denies D iarrhea. D enies N ausea. * Medical History: * Surgical History: * Hospitalization/Major Diagno stic Procedure: * Medications: T akingVitamin D 25 MCG (1000 UT) Tablet 1 tablet Orally Once a day Aspirin 81 MG Tablet Delayed Release 2tablet Orally Once a day amLODIPine Besylate 10 MG Tablet 1 tablet Orally Once a day Rosuvastatin Calcium 40 MG Tablet TAKE 1 TABLET BY MOUTH EVERY DAY FOR 90 DAYS Taking Vitamin D 25 MCG (1000 UT) Tablet 1 tablet Orally Once a day Taking Aspirin 81 MG Tablet Delayed Release 2tablet Orally Once a day Taking amLODIPine Besylate 10 MG Tablet 1 tablet Orally Once a day Taking Rosuvastatin Calcium 40 MG Tablet TAKE 1 TABLET BY MOUTH EVERY DAY FOR 90 DAYS Not-Taking/PRNNitrostat 0.4 MG Tablet Sublingual as directed [...] 1 tablet Orally Three times a day DiscontinuedCalcium Carbonate 600 MG Tablet as directed Orally Medication List reviewed and reconciled with the patientDiscontinued Calcium Carbonate 600 MG Tablet as directed Orally Medication List reviewed and reconciled with the patient * Allergies: N .K.D.A.yes[Allergies Verified] Objective: * Vitals: H t: 70.25, Wt: 181, BMI:25.78, BP:110/70, Wt-k.1. * Examination: G eneral Examination: GENERAL APPEARANCE: p leasant, well nourished, well developed, in no acute distress. HEAD: n ormocephalic. SKIN: g ood turgor. HEART: r egular rate and rhythm, no murmurs, rubs, gallops.? LUNGS: n o wheezes, rales, rhonchi, good air movement, clear to auscultation bilaterally. Assessment: * Assessment: 1. M icroscopic hematuria - R31.29 (Primary) 2 . E levated fasting blood sugar - R73.01 Plan: * Treatment: 2. E levated fasting blood sugar L AB: Hemoglobin A1c (Collection Date & Time - 08/03/2025) Value Reference Range H emoglobin A1c 5.2 ?LAB: Glucose, finger stick (Collection Date & Time - 08/03/2025)* Value Reference Range V alue 94 Notes: doing well on present?? * Procedure Codes: 8 2947 ASSAY, GLUCOSE, BLOOD QUANT, Modifiers: QW 53981 GLYCATED HEMOGLOBIN TEST, Modifiers: QW * * Sign off status: Completed true * Provider: Destiney Maldonado MD Date: Generated for Michael vázquez/Raymond/eTransmitting on: 12:57 PM EDT History and Physical Notes * Examination Category Sub-Category Detail Notes Category Not es General Examination GENERAL APPEARANCE: pleasant , well nourished, well developed, in no acute distress HEAD: normocephalic HEART: regular rate and rhy thm, no murmurs, rubs, gallops LUNGS: no wheezes, rales, r honchi, good air movement, clear to auscultation bilaterally SKIN: good turgor
--- OUTSIDE RECORDS SUMMARY | 2025-08-07 11:40 | XMS_ITS ---
Author Organization Taras Maldonado MD Address [address] [place] [phone] Care Team Providers Care Elevator Installer Name Role Phone Taras Maldonado Primary Care Provider REASON FOR VISIT RF Amlodipine and Rosuvastatin Medications Medication SIG (Take, Route, Frequency, Duration) Notes Start Date End Date Status amLODIPine Besylate 10 MG 1 tablet Orall y Once a day for 90 days 10/13/2024 Active Rosuvastatin Calcium 40 MG TAKE 1 TABLET BY MOUTH EVERY DAY FOR 90 DAYS for 90 Active Encounters Encounter Location Date Provider Diagnosis Taras Maldonado MD [address] [place] [phone] 08/07/2025 Taras Maldonado Microscopic hematuria R31.29 Assessments Encounter Date Diagnosis (ICD Code) Assessment Notes Treatment Notes Treatment Clinical Notes Section Notes 08/07/2025 Microscopic hematuria (ICD-10 - R31.29) Plan Of Treatment Medication Medication Name Sig Start Date Stop Date Notes amLODIPine Besylate 10 MG 1 tablet Orall y Once a day for 90 days 10/13/2024 Rosuvastatin Calcium 40 MG TAKE 1 TABLET BY MOUTH EVERY DAY FOR 90 DAYS for 90 Next Appt Details Provider Name:Taras suresh, 10/09/2025 08:15:00 AM, [address] [place] [address], [address], [phone], Provider Name:Taras suresh, 10/16/2025 01:00:00 PM, [address] [place] [address], [address], [phone], Progress Notes * SHAHIDAGómez Smith JDOB: [birth year] (75 yo M)Acc No.[id number]:08/07/2025 Patient: Gómez GUEVARA :1950 A ge:75 Y S ex:Male Address:[address] [place] [id number] * Refills Refill amLODIPine Besylate Tablet, 10 MG, Orally, 90 Tablet, 1 tablet, Once a day, 90 days, Refills=3 Refill Rosuvastatin Calcium Tablet, 40 MG, 90 Tablet, TAKE 1 TABLET BY MOUTH EVERY DAY FOR 90 DAYS, 90, Refills=3 * true * Date: Generated for Michael vázquez/Raymond/Tarik on: 12:58 PM EDT
[2025-08-08 11:13] LABS: Cholesterol 105 mg/dL (<200); HDL Cholesterol 32 mg/dL (>40); Triglycerides 208 mg/dL (<150)
--- OUTSIDE RECORDS SUMMARY | 2025-08-08 12:57 | XMS_ITS | Clinical Summary ---
Author Organization [facility] Address [address] [place] [id number] Phone Care Team Providers Care Paint Process Engineer Name Role Phone Taras Maldonado MD Primary Care Provider Allergies No known active allergies Medications aspirin 81 MG EC tablet ENTERIC COATED ASPIRIN (ASPIRIN ENTERIC COATED) [address]; Dose: 81 MG; Form: Take [address]; Route: PO; Frequency: QD; Directions: Not available; Details: Dispense: Tablet(s); Taking; Status: Active; Source: [facility]; Date: 05/28/2012 2 Active lisinopril (PRINIVIL,ZESTR NH) 10 MG tablet LISINOPRIL 10 MG TABLET; [...] VACCINE (1 - 1-dose 75+ series) 2024 INFLUENZA VACCINE (#1) 2025 , 06/14/2020, 06/20/2019, Additional history exists COVID-19 VACCINE (2024- season) 2025 08/09/2021, 01/03/2021, 12/06/2020 LIPID PANEL 08/28/2026 08/28/2021, [...] Glucose Level 98 70 - 106 mg/dL [facility] Blood Urea Nitrogen 20 9 - 23 mg/dL [facility] Calcium Level 9.6 8.5 - 10.1 mg/dL [facility] Creatinine 1.11 0.55 - 1.30 mg/dL [facility] Estimat Glomerular Filtration Rate 67 >60 [facility] Comment: Units - ml/min/1.73 msq For population multiply the GFR result by 1.159 for actual result. Serum Creatinine and GFR Estimation traceable to IDMS. The new CKD EPI calculation implemented on 01/18/18. Albumin 4.2 3.4 - 5.0 g/dL [facility] Total Protein 7.7 6.4 - 8.2 g/dL [facility] Alkaline Phosphatase 70 46 - 136 U/L [facility] Aspartate Amino Transf (AST/SGOT) 25 15 - 37 U/L [facility] Alanine Aminotransferase (ALT/SGPT) 38 12 - 78 U/L [facility] Total Bilirubin 2.5(Abnor almas H) 0.2 - 1.0 mg/dL [facility] Sodium Level 139 136 - 145 mmol/L [facility] Potassium Level 3.8 3.5 - 5.1 mmol/L [facility] Chloride Level 102 98 - 107 mmol/L [facility] Carbon Dioxide Level 29.0 21 - 32 mmol/L [facility] Anion Gap 8 3 - 11 mmol/L [facility] 07/02/2018 11:1 9 AM EDT 07/02/2018 11:19 AM EDT Narrative [facility] - 07/02/2018 12:06 PM EDT Testing performed through [place] [id number], Delmi Costa MD, Laboratory Photovoltaic Technician Resulting Agency Comment [facility] Gabby Cartagena PA-C LAB BLOOD [place] [address], [facility] from Last 3 Months or Most Recently Relevant to Health Maintenance Insurance MEDICARE PART A & B [facility] MEDICARE SUPPLEMENT MEDICARE PART A & B [facility] MEDICARE SUPPLEMENT MEDICARE PART A & B Member Subscriber Plan / Payer ( fective 2014-Present) Name:Erik Rosales Member ID:[id number] Relation to Subscriber:Self Name:Erik Rosales Subscriber ID:[id number] Payer ID:[id number] Group ID:Not on file Type:Medicare Address: [facility] [address] MEDICARE SUPPLEMENT MEDICARE PART A & B MEDICARE SUPPLEMENT MEDICARE PART A & B [employer] MEDICARE SUPPLEMENT MEDICARE PART A & B [employer] MEDICARE SUPPLEMENT MEDICARE PART A & B [employer] MEDICARE SUPPLEMENT MEDICARE PART A & B [employer] MEDICARE SUPPLEMENT MEDICARE PART A & B [facility] MEDICARE SUPPLEMENT Care Teams Paint Process Engineer Relationship Specialty Start Date End Date Taras Maldonado MD [address] [place] [address] [place] [id number] PCP - General 02/16/15 Additional Source Comments The information contained in this document represents components of the legal health record. It is not the complete legal health record.[facility]
--- OUTSIDE RECORDS SUMMARY | 2025-08-08 12:57 | XMS_ITS ---
Author Organization [facility] Address [address] [place] [id number] Phone Care Team Providers Care Hotel Manager Name Role Phone Taras Maldonado MD Primary [...] (LUPRON DEPOT 3 MONTH) 03/28/2016 07/08/2019 leuprolide acetate (3 month) (LUPRON DEPOT 3 MONTH) a. Therapy Complete Ronak Velasquez MD
--- OUTSIDE RECORDS SUMMARY | 2025-08-08 12:58 | XMS_ITS | Clinical Summary ---
Author Organization [facility] Address [address] [place] [address] Care Team Providers Care Engagement Executive Name Role Phone Taras Maldonado Primary Care Provider [phone] Allergies Active Allergy Reactions Criticality Noted Date [...] mg EC tabletIndications:C oronary artery disease involving sa[place] coronary artery of [place] heart without angina pectoris TAKE 2 TABLETS [...] (04/21/2019): Added automatically from request for surgery [id number] PLATA (dyspnea on exertion) 04/21/2019 Overview (04/22/2019): Added automatically from request for surgery [id number] Positive cardiac stress test 04/21/2019 05/31/2019 Overview (04/22/2019): Added automatically from request for surgery [id number] Encounters Date Type Department Care Team Description 06/29/2025 [facility] 4th floor Cardiology Medicine [address] [place] [id number] Clinical Quality Manager: Obed Wade MD Coronary artery disease involving sa[place] coronary artery of sa[place] heart without angina pectoris from Last 3 Months Family History Medical History Relation Name Comments [...] 07/08/2022 8:17 AM EDT Plan of Treatment Upcoming Encounters Date Type Department Care Team (Late st Contact Info) Description 03/16/2026 8:30 AM EDT Follow-Up [facility] 4th floor Cardiology Medicine [address] [place] [address] Clinical Quality Manager: Obed Wade MD [address] [place] [address] Health Maintenance Due Date Last Done Comments Hepatitis C Screening 1950 Medicare AWV 1951 Basic Metabolic Panel 08/28/2022 08/28/2021 , 08/30/2020, 08/25/2019, Additional history exists RSV Vaccine (60+ years old and patients) (1 - 1-dose 75+ series) 2024 Alcohol/Substance Use Screening 10/12/2024 Depression Screening and Follow-Up 10/12/2024 Health Care Proxy Review 10/12/2024 Social Drivers of Health Annual Screening 10/12/2024 DTaP,Tdap,and Td Vaccines (2 - Tdap) 04/23/2025 04/23/2015 COVID-19 Vaccine ( season) 2025 08/17/2023, 07/11/2022, 01/20/2022, Additional history exists Zoster Vaccines Completed 02/08/2019, 1203/2018, 10/06/2011 Pneumococcal Vaccine: 50+ Years Completed 04/30/2020, 01/27/2017, 04/11/2014 Influenza Vaccine Completed 06/13/2025, , 07/07/2023, Additional history exists Hepatitis B Vaccines Aged Out No long er eligible based on patient's age to complete this topic Procedures * Due to [place] [employer] law, this organization might not be sharing negative HIV tests. Procedure Name Priority Date/Time Associated Diagnosis Comments BASIC METABOLIC PANEL Routine 08/28/2021 9:41 AM EST Mixed hyperlipidemia from Last 3 Months or Most Recently Relevant to Health Maintenance Results * Due to [place] [employer] law, this organization might not be sharing [...] MD LAB BLOOD ORDERABLES Final Resu lt [email or web address] [address] [place] [address], from Last 3 Months or Most Recently Relevant to Health Maintenance Insurance [facility] Advance Directives * Full Code (Latest [...] 6:20 AM 04/29/2019 9:49 AM Care Teams Engagement Executive Relationship Specialty Start Date End Date Taras Maldonado [address] [place] [address] [place] [address] PCP - General 04/30/17
--- OUTSIDE RECORDS SUMMARY | 2025-08-08 12:58 | XMS_ITS ---
Author Organization [facility] Address [address] [place] [address] Care Team Providers Care Agency Manager Name Role Phone Erica Taras Primary Care Provider [phone] Active Problems Problem Noted Date Diagnosed Date [...] (11/07/2020): March 01, 2013 Entered By: DIXON RASHDI Comment: Dr Anderson Neoplasm of uncertain behavior [...] Lifetime Dose Automatic Entry Manual Entr y Fluoro Time 3.6 minutes 0 minutes 3.6 minutes Radiation - mGy 209 mGy 0 mGy 209 mGy Dose Area Product 27.1 Gy-cm2 0 Gy-cm2 27.1 Gy-cm 2 Resolved Problems Problem Noted Date Diagnosed Date [...] (04/21/2019): Added automatically from request for surgery [id number] PLATA (dyspnea on exertion) 04/21/2019 Overview (04/22/2019): Added automatically from request for surgery [id number] Positive cardiac stress test 04/21/2019 05/31/2019 Overview (04/22/2019): Added automatically from request for surgery [id number]
--- OUTSIDE RECORDS SUMMARY | 2025-08-08 12:59 | XMS_ITS | Patient Health Record ---
Author Organization [facility] Address [address] [place] [phone] Care Team Providers Care Intensivist Name Role Phone Taras Maldonado MD Primary Care Provider Armando Ayers [phone] Allergies No Known Allergies Reason For Referral No Information Medications Medication SIG (Take, Route, Frequency, Duration) Notes Start Date End Date Status Aspirin Low Dose 81 MG TAKE 2 TABLET BY MOUTH ONCE DAILY Oral; Duration: 90 Active Lisinopril-hydroCHLOROthiaz brittnee 10-12.5 MG TAKE 1 TABLET BY MOUTH EVERY DAY Oral; Duration: 90 Active Omeprazole 20 MG 1 capsule 30 minutes before morning meal Orally Once a day; Duration: 30 day(s) Active Centrum Silver Activ e Rosuvastatin Calcium 40 MG Oral; Duration: 90 Active Calcium + D3 Active Social [...] Problem Status W/U Status Risk Notes Problem Colon cancer screening (452874673) Colon cancer screening (Z12.11) Active confirmed Problem Diverticular disease of colon (559366292) Diverticulosis of large intestine without perforation or abscess without bleeding (K57.30) Active confirmed Problem Long-term current use of aspirin (652956888261543 ) Aspirin long-term use (Z79.82) Active confirmed Plan Of Treatment Pending Test Test Name Order Date Pathology 07/27/2023 Future Test Test Name Order Date COLONOSCOPY 05/07/2023 Insurance Providers Payer Name Payer Address Payer Phone Subscriber Number Group Number Insured Name Patient Relationship to Insured Coverage Start Date Coverage End Date MEDICARE OF [place] [address] [place] [address] [phone] [id number] MAU RODRIGUEZ Self - patient is the insured [employer] [address] [place] [address] [id number] MAU RODRIGUEZ Self - patient is the insured Medical (General) History Medical History History ICD Code CAD with CABG as below Denies FL,DM,CVA,Lung disease,renal dise ase Prostate cancer--surgery and then XRT Colonoscopy in 08/2017 was n egative at [facility]. He can't recall if he had other colonoscopies prior to that with removal of polyps. Hyperlipidemia HTN Surgical History Surgery Date(Month/Year) 3 V CABG Appendectomy Tonsillectomy Prostatectomy
--- OUTSIDE RECORDS SUMMARY | 2025-08-08 12:59 | XMS_ITS | Patient Health Record ---
Author Organization Taras Maldonado MD Address [address] [place], [place] [id number] Care Team Providers Care Job Coach/Job Developer Name Role Phone Taras Maldonado Primary Care Provider [phone] Allergies No Known Allergies Results Component Value Reference Range Notes Hemoglobin A1c Reviewed date:08/03/2025 10:38:03 AM Interpretation: Performing Lab: Notes/Report: Hemoglobin A1c 5.2 Complete Blood Count Auto Di ff Reviewed date:09/30/2024 04:30:46 PM Interpretation: Performing Lab:[facility], [address] [place] [phone] Notes/Report: White Blood Count 5.3 4.8-10.8 X10*3/uL [...] NRBC Abs Auto 0.000 0.0-0.012 X10*3/uL Comprehensive Waddy. Panel Fa Reviewed date:09/30/2024 04:29:05 PM Interpretation: Performing Lab:[facility], [address] [place] [phone] Notes/Report: Sodium 144 135-145 mmol/L Potassium 3.7 [...] Panel Reviewed date:09/30/2024 04:29:51 PM Interpretation: Performing Lab:[facility], [address] [place] [phone] Notes/Report: Triglycerides 233 <150 mg/dL Desirable Triglyceride: [...] (Free>4and<10) Reviewed date:09/30/2024 04:30:26 PM Interpretation: Performing Lab:[address] [phone] Notes/Report: PSA,Total (Free>4and<10) < 0.10 0.00-4.00 ng/mL [...] A1c Reviewed date:09/30/2024 04:30:54 PM Interpretation: Performing Lab:[facility], [address] [place] [phone] Notes/Report: Hemoglobin A1c % 5.1 <6.0 % [...] average glucose, using the formula of the [id number] Average Glucose study (ADAG), Diabetes Care, Vol.31,#8, May. 2007 UA ClnCatch+Micro w/rflx Cul t Reviewed date:11/15/2024 10:16:45 AM Interpretation:see back 11-15-2024 Performing Lab:[address] [phone] Notes/Report: Urine, Clean Catch Color Urine Yellow Appearance Urine Clear PH 5.5 5.0-9.0 Glucose Urine UA Negative Negative mg/dL Urine Blood Small (1+) Negative Specific [place] - Urine 1.020 1.005-1.025 Urine Protein 100 [...] Panel Reviewed date:04/11/2025 04:33:59 PM Interpretation: Performing Lab:[address] [phone] Notes/Report: Bilirubin Total 1.6 0.0-1.0 mg/dL Slight Icte que. Bilirubin Direct 0.3 0.0-0.5 mg/dL Slight Ict erus. Aspartate Amino Transferase 33 5-37 U/L Alanine Aminotransferase 19 0-40 U/L Total Protein 7.3 6.5-8.0 g/dL Albumin Level 4.8 3.5-5.0 g/dL Alkaline Phosphatase 71 39-117 U/L Lipid Panel with Reflex Reviewed date:04/11/2025 04:41:17 PM Interpretation: Performing Lab:[address] [phone] Notes/Report: Triglycerides 302 <150 mg/dL Desirable Triglyceride: [...] Microscopic Reviewed date:10/14/2024 09:43:24 AM Interpretation: Performing Lab:[facility], [address] [place] [phone] Notes/Report: Color Urine Yellow Appearance Urine Clear PH 5.0 5.0-9.0 Glucose Urine UA Negative Negative mg/dL Urine Blood Trace Negative Specific [place] - Urine 1.025 1.005-1.025 Urine Protein 100 [...] Folate Reviewed date:04/25/2025 12:35:01 PM Interpretation: Performing Lab:[facility], [address] [place] [phone] Notes/Report: Vitamin B12 387 200-900 pg/mL NORMAL 200-900 PG/ML INDETERMINATE 160-199 PG/ML DEFICIENT < 160 PG/ML Folate 10.5 > or = 4.0 ng/mL Reference Values: > or = 4.0 ng/mL < 4.0 ng/mL suggests folate deficiency Methotrexate, aminopterin and folinic acid (leucovorin) are chemotherapeutic agents whose molecular structures are similar to folate; therefore, the Building Equipment Operator folate assay cannot be used for patients using these drugs. Glucose, finger stick Reviewed date:08/03/2025 10:29:29 AM Interpretation: Performing Lab: Notes/Report: Value 94 UA CC w/rflx Micro + Cult Reviewed date:11/15/2024 12:21:31 PM Interpretation: Performing Lab:[facility], [address] [place] [phone] Notes/Report: [id number] Urine, Clean Catch Color Urine Yellow Appearance Urine Clear PH 5.5 5.0-9.0 Glucose Urine UA Negative Negative mg/dL Urine Blood Negative Negative Specific [place] - Urine 1.015 1.005-1.025 Urine Protein Trace Neg-Trace mg/dL Urine Ketones Negative Negative mg/dL Nitrite Urine Negative Negative Leukocyte Esterase Urine Negative Negative Hold Gold Reviewed date:04/11/2025 04:34:51 PM Interpretation: Performing Lab:[facility], [address] [place] [phone] Notes/Report: Hold Gold See Note Specimen held untested for 24 hours; Call to request Chemistry testing. Lipid Panel Reviewed date:08/08/2025 12:27:16 PM Interpretation: Performing Lab:[facility], [address] [place] [phone] Notes/Report: Triglycerides 208 <150 mg/dL Desirable Triglyceride: less than 150 mg/dL Borderline High Triglyceride 150-199 mg/dL High Triglyceride: 200-499 mg/dL Very High Triglyceride: greater than or equal to 5OO mg/dL Cholesterol 105 <200 mg/dL Desirable Cholesterol: less than 200 mg/dL Borderline High Cholesterol: 200-239 mg/dL High Cholesterol: greater than 239 mg/dL LDL Cholesterol Calculated 32 <100 mg/dL Desirable LDL: less than 100 mg/dL Near Optimal/Above Optimal LDL: 110-129 mg/dL Borderline High LDL: 130-159 mg/dL High LDL: 160-189 mg/dL Very High LDL: greater than or equal to 190 mg/dL HDL Cholesterol 32 >40 mg/dL Desirable HDL: greater than 40 mg/dL Note: This HDL assay may give artificially low results in patients with liver disease. Reason For Referral No Information Medications Medication [...] DAY FOR 90 DAYS for 90 Active Immunizations Vaccine Route Administration Date Status Comme [...] 01/27/2017 Administered Fluarix Quadrivalent IM Intramuscular 06/16/2017 [facility] Fluarix Quadrivalent IM Intramuscular 06/28/2018 [facility] red Shingrix IM Intramuscular 09/16/2018 Administered Shingrix [...] High Dose IM Intramuscular 06/21/2024 Administer ed Influenza High Dose IM Intramuscular 06/13/2025 Administer ed Flu Vaccine Unknown 06/13/2014 Pending [...] Status Risk Notes Problem 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 Problem 587187364 Tubular adenoma of colon (D12.6) Active confirmed Problem 197454522 Gastroesophageal reflux disease without esophagitis (K21.9) Active confirmed Problem 100016028 Elevated fasting blood sugar (R73.01) Active confirmed Problem 81780205 Essential hypert ension (I10) Active confirmed Problem 296484871 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) Active confirmed Problem 936586834 Prostate cancer (C61) Active confirme d Problem 909698711 High triglycerid es (E78.1) Active confirmed Problem 16217710 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.10) Active confirmed Problem 890486946 Anemia due to ot her cause, not classified (D64.89) Active confirmed Problem Amnesia (13423246) Memory changes (R41.3) Active confirmed Problem 951120350 Pure hypercholesterolemia (E78.00) Active confirmed Problem 8092121838029 Coronary artery disease of [place] artery of [place] heart with stable angina pectoris (I25.118) Active confirmed Problem 064866154 Cardiac arrhythm ia, unspecified cardiac arrhythmia type (I49.9) Active confirmed Problem Mild cognitive disorder (076747369) MCI (mild cognitive impairment) (G31.84) Active confirmed Problem 467538726 Squamous cell carcinoma, 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) Active confirmed Problem 848271348 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) Active confirmed Vital Signs Blood pressure diastolic 70 mm Hg 08/03/2025 Height 70.25 in 08/03/2025 Blood pressure systolic 110 mm Hg 08/03/2025 Weight 181 lbs 08/03/2025 BMI 25.78 kg/m2 08/03/2025 Encounters Encounter Location Date Provider Diagnosis Taras Maldonado MD [address] [place] [id number] 09/30/2024 Taras Maldonado Essential hypertensi on I10 ; Pure hypercholesterolemia E78.00 and Elevated fasting blood sugar R73.01 Taras Maldonado MD [address] [place] [address] Drive [address] [place] [id number] 11/15/2024 Taras Maldonado Hematuria R31.9 Taras Maldonado MD [address] [place] [address] Drive [address] [place] [id number] 04/11/2025 Taras Maldonado Pure hypercholestero lemia E78.00 Taras Maldonado MD [address] [place] [address] Drive [address] [place] [id number] 06/13/2025 Taras Maldonado Encounter for administration of vaccine Z23 Taras Maldonado MD [address] [place] [address] Drive [address] [place] [id number] 10/13/2024 Taras Maldonado Microscopic hematuri a R31.29 ; Essential hypertension I10 ; Elevated fasting blood sugar R73.01 ; Gastroesophageal reflux disease without esophagitis K21.9 ; Pure hypercholesterolemia E78.00 ; Colon cancer screening Z12.11 and Depression screening Z13.31 Taras Maldonado MD [address] [place] [id number] 04/25/2025 Taras Maldonado MCI (mild cognitive impairment) G31.84 ; High triglycerides E78.1 and Coronary artery disease of [place] artery of [place] heart with stable angina pectoris I25.118 Taras Maldonado MD [address] [place] [id number] 08/03/2025 Taras Maldonado Elevated fasting blo od sugar R73.01 and Microscopic hematuria R31.29 Taras Maldonado MD [address] [place], [place] [id number] 08/07/2025 Taras Maldonado Microscopic hematuri a R31.29 Assessments Encounter Date Diagnosis (ICD Code) Assessment Notes Treatment Notes Treatment Clinical Notes Section Notes 09/30/2024 Essential hypertensi on (ICD-10 - I10) 09/30/2024 Pure hypercholesterolemia (ICD-10 - E78.00) 11/15/2024 Hematuria (ICD-10 - R31.9) 04/11/2025 Pure hypercholesterolemia (ICD-10 - E78.00) 06/13/2025 Encounter for administration of vaccine (ICD-10 - Z23) 10/13/2024 Microscopic hematuri a (ICD-10 - R31.29) 10/13/2024 Essential hypertensi on (ICD-10 - I10) a little higher than lillie hutton wants it so will increase to 10 mg, patient verbalized understanding of change in directions 04/25/2025 MCI (mild cognitive impairment) (ICD-10 - G31.84) is getting worse, pending abs, will continue to monitor 08/03/2025 Elevated fasting blo od sugar (ICD-10 - R73.01) doing well on present 08/03/2025 Microscopic hematuri a (ICD-10 - R31.29) repeat u/a was negative 08/07/2025 Microscopic hematuri a (ICD-10 - R31.29) 09/30/2024 Elevated fasting blo od sugar (ICD-10 [...] Provider Name:Taras Baldwin ier, 10/09/2025 08:15:00 AM, [address] [place] [address], [address], [place], [place], [phone], Provider Name:Taras Baldwin ier, 10/16/2025 01:00:00 PM, [address] [place] [address], [address], [place], [place], [id number], Insurance Providers Payer Name Payer Address Payer Phone Subscriber Number Group Number Insured Name Patient Relationship to Insured Coverage Start Date Coverage End Date MEDICARE [employer] [address] [place] [address] [id number] Erik Rosales Self - patient is the insured [facility] [address] [phone] [id number] Erik Rosales Self - patient is the insured Medical (General) History Medical History History ICD Code colonoscopy 08/07/13 at [facility]; colonoscopy 09/09/17 - Story - repeat 5 years endoscopy 08/07/13 at [facility] DO RECTAL IN MARCH 2022 cabg 2018 Surgical History Surgery Date(Month/Year) prostatectomy [address] Gonzalez
== END 2025-08-08 10:26 | disposition home or self-care (01) ==
LOC: HO.LAB 10:25
PROVIDERS: PCP Internal Medicine; Visit Provider Internal Medicine Cardiovascular Disease
DX: I25.10 Atherosclerotic heart disease of native coronary artery without angina pectoris (principal)
CPT/HCPCS: 36415; 80061

== ENCOUNTER 2025-09-18 10:49 | Outpatient (REF) | payer MEDICARE, OTHER, SELFPAY ==
[2025-09-18 10:53] LABS: MANUAL DIFF FLAG NO
[2025-09-18 11:28] LABS: Hematocrit 45.2 % (42.0-52.0); Hemoglobin 15.7 g/dl (14.0-18.0); Imm Gran Abs Auto 0.01 X10*3/uL (0.00-0.03); Imm Gran Pct Auto 0.2 % (0.0-0.4); Lymphocytes Absolute Auto 1.1 X10*3/uL (1.2-4.9); Mean Corpuscular HGB Conc 34.7 g/dl (31.0-36.0); Mean Corpuscular Hemoglobin 33.1 pg (27.0-33.0); Mean Corpuscular Volume 95.2 fL (80.0-98.0); NRBC Abs Auto 0.000 X10*3/uL (0.0-0.012); NRBC Pct Auto 0.0 /100WBC (0.0-0.2); Platelet Count 187 X10*3/uL (160-400); Red Blood Count 4.75 X10*6/uL (4.60-5.80); White Blood Count 5.6 X10*3/uL (4.8-10.8)
[2025-09-18 11:50] LABS: Alanine Aminotransferase 33 U/L (0-40); Albumin Level 5.1 g/dL (3.5-5.0); Alkaline Phosphatase 73 U/L (39-117); Anion Gap 13 (12-20); Aspartate Amino Transferase 28 U/L (5-37); Blood Urea Nitrogen 22 mg/dL (9-16); Calcium 9.9 mg/dL (8.4-10.2); Carbon Dioxide 28 mmol/L (22-29); Chloride 107 mmol/L (96-108); Cholesterol 115 mg/dL (<200); Estimated Glomerular Filt Rate 50; HDL Cholesterol 29 mg/dL (>40); Potassium 4.1 mmol/L (3.3-5.1); Sodium 144 mmol/L (135-145); Total Protein 7.6 g/dL (6.5-8.0); Triglycerides 206 mg/dL (<150)
[2025-09-18 12:10] LABS: PSA,Total (Free>4and<10) < 0.10 ng/mL (0.00-4.00)
== END 2025-09-18 10:50 | disposition home or self-care (01) ==
LOC: HO.LNP 10:49
PROVIDERS: Visit Provider Internal Medicine
DX: D64.89 Other specified anemias (principal); E78.00 Pure hypercholesterolemia, unspecified; R73.01 Impaired fasting glucose; I10 Essential (primary) hypertension; Z12.5 Encounter for screening for malignant neoplasm of prostate
CPT/HCPCS: 80053; 80061; 83036; 84153; 85025